=== PATIENT | female | born 1940 | race Caucasian/White ===

== ENCOUNTER 2017-03-07 20:31 | Inpatient (IN) ==
[2017-03-07] MEDS ORDERED: 0.9 % SODIUM CHLORIDE 1,000 ML IV ONE (20:35)
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
[2017-03-07 21:37] LABS: Basophils # (Auto) 0 K/mcL (0.0-0.3); Basophils % (Auto) 0 % (0.0-2.0); Eosinophils # (Auto) 0 K/mcL (0.0-0.7); Eosinophils % (Auto) 0.3 % (0.0-7.0); Granulocytes % (Auto) 84.5 % (38.0-78.0); Lymphocytes # (Auto) 0.8 K/mcL (1.5-4.8); Lymphocytes % (Auto) 5.5 % (15.5-49.0); Mean Cell Volume 91.8 fL (80.0-100.0); Mean Corpuscular HGB Conc 32.9 g/dL (31.0-36.0); Mean Corpuscular Hemoglobin 30.2 pg (26.0-34.0); Monocytes # (Auto) 1.3 K/mcL (0.1-0.9); Monocytes % (Auto) 9.7 % (1.0-12.0); Platelet Count 283 K/mcL (140-440); RBC 5.24 M/mcL (4.00-5.20); Red Cell Distribution Width 12.5 % (11.5-14.5)
[2017-03-07 22:04] LABS: ALT/SGPT 31 U/l (0-40); Albumin 4.5 gm/dL (3.2-5.2); Albumin/Globulin Ratio 1.3 (1.0-2.3); Alkaline Phosphatase 78 U/L (39-117); Blood Urea Nitrogen 23 mg/dl (8-23); Creatine Kinase 1137 IU/L (24-170)
[2017-03-08] MEDS ORDERED: 0.9 % SODIUM CHLORIDE 1,000 ML IV ONE ×3 (00:30→01:13)
[2017-03-08] MEDS ORDERED: ONDANSETRON 4 MG/2 ML VIAL IV PRN ×2 (00:49→16:00)
[2017-03-08] MEDS ORDERED: oxyCODONE HCL 5 MG TABLET PO PRN (00:49)
[2017-03-08] MEDS ORDERED: ACETAMINOPHEN 325 MG TABLET PO PRN (00:49)
[2017-03-08] MEDS ORDERED: ALBUTEROL SULFATE 2.5 MG/3 ML NEBULIZER NEB PRN (00:49)
[2017-03-08] MEDS: DEXTROSE 5%-1/2NS 1,000 ML IV SCH ×3 (00:50→18:01)
--- NOTE | 2017-03-08 01:25 | Internal Med History&Physical ---
Medical - H&P: HPI Patient information: Note initiated : 03/08/17 at 1:20 am Service Date, if different from initiated Date: [] Patient: Josefa Renee 76 y/o F admitted on 03/08/17 for fell down 3 days with right hip pain. Chief Complaint: [] History of present illness: Ms. Renee is a 76 year old Female who does not like to go to the doctor, presents to the ER today after being fallen down and being on the floor for 3 days. The patient notes 3 days ago she let her dog out, and when closing the door after letting him back in, she turned and then fell, she had a bunch of keys and she supposedly landed on that and the ground. She has had right hip pain since then and has not been able to get up, pain is moderate to severe, sharp, worse with activity, better with rest, more or less stable since incident. The patient son who had tried calling her eventually called the neighbour who then called 911 The patient denies any prodromal symptoms, no cp, sob, palpitations, dizziness, altered sensorium, altered smell, change in vision or headaches. She notes she had had multiple falls in the past 22 over last 5 yrs but has not had this checked out. She notes she has not lost conciousness or never felt dizzy during these spells. The patient son notes that sometimes when she tries to move her head too fast she may get dizzy. The patient does not follow up wit [facility] physician and does not take any medication except for her open angle glaucoma. The patient had a bad surgical outcome in 2002? with Dr Avila for her carpal tunnel, and since then has not seen any other physician except he eye doctor The patient was covered with feces and urine in the ER nad needed to be cleaned The patient notes that she tried to move around as much as possible when on the floor but was not able t oget much help The patient has multiple moles, and skin breakthrough. The patient in the left under breast side had signifciant skin breaktrough, thickened mass approx 8x6 cms which has been there for a while as per the patient. All systems: reviewed and no additional remarkable complaints except as stated ( as per HPI) Medical - H&P: PMH Medical history: glaucoma Surgical history: hystrectomy cholecystetomy appendectomy tonsillectomy Pertinent family history: aunt with breast cancer both parents with heart issues. Social history: isaac smoking denies etoh denies recreational drugs. Medical - H&P: Meds Home Medications Medication Instructions Recorded Confirmed Type No Known Home Meds [No Known Home 03/08/17 03/08/17 History Meds] Allergies Allergy/AdvReac Type Severity Reaction Status Date / Time No Known Drug Allergies Allergy Unverified 03/08/17 00:33 Medical - H&P: Exam - Constitutional Vitals: Temp Pulse Resp BP Pulse Ox 98.4 F 121 H 20 137/71 94 03/08/17 00:45 03/08/17 00:45 03/08/17 00:45 03/08/17 00:45 03/08/17 00:45 Exam: GENERAL: The patient is a well-developed, well-nourished in no apparent distress. Is alert and oriented x3. VITAL SIGNS: Reviewed and as noted elsewhere. HEENT: Head is normocephalic and atraumatic. Extraocular muscles are intact. Pupils are equal, round, and reactive to light. Nares appeared normal. Mouth appears any without lesions. Mucous membranes are dry NECK: Normal to inspection, Supple, No lymphadenopathy or thyromegaly. LUNGS: Air entry equal on both sides, no wheezing, crackles or rhonchi noted. No accessory muscles of respiration HEART: tachycardic rate, irregular rhythm , S1 and S2 heard, no Gallop, S3 or Rub Noted, No Gross murmur heard. ABDOMEN: Soft, nontender, and nondistended. Positive bowel sounds. No hepatosplenomegaly was noted. EXTREMITIES: No cyanosis, clubbing, rash, lesions or edema. NEUROLOGIC: Cranial nerves II through XII are grossly intact. Motor and Sensory System Grossly Intact PSYCHIATRIC: Normal affect, Normal Mood. Appropriate Behavior. SKIN: multiple moles, skin break through on the right hip, Left breat: under the breast there is a open mass 8x6 cms hard and indurated. Medical - H&P: Reslt - Labs CBC & Chem 7: 03/07/17 20:47 03/07/17 20:47 Labs: Short CBC 03/07/17 Range/Units 20:47 WBC 14.0 H (4.5-11.0) K/mcL Hgb 15.8 H (12.0-15.0) g/dL Hct 48.1 H (36.0-48.0) % Plt Count 283 (140-440) K/mcL BMP 03/07/17 20:47 Sodium 139 Potassium 3.5 Chloride 95 L Carbon Dioxide 23 BUN 23 Creatinine 0.9 Glucose 135 H Calcium 10.2 Cardiac Enzymes 03/07/17 Range/Units 20:47 Total Creatine Kinase 1137 H (24-170) IU/L Liver Function 03/07/17 Range/Units 20:47 Total Bilirubin 1.2 H (0.0-1.0) mg/dL AST 50 H (0-37) U/l ALT 31 (0-40) U/l Alkaline Phosphatase 78 (39-117) U/L Albumin 4.5 (3.2-5.2) gm/dL - EKG Data EKG comments: 03/08/17 01:30 ekg shows sinus tachycardia with multiple pac, Medical - H&P: A/P - Narrative A/P Narrative: A/P Right Hip Fracture: consult ortho in AM, pain management, NPO for now. Rhabdomyolysis: CK elevated, IV fluids for now, renal function ok, trend CK SIRS syndrome: low grade temp, tachycardia, elevated wbc, but no source, IV fluids, and await ua, give one dose of rocephin today. Left Breast Mass: going on for few years? will see if Dr Ramires Gen surgery can evaluate same and consider bx if needed Recurrent Fall: get CT head, DVT: hep sq DNR as per pt wishes, son in the room during this conversation.
[2017-03-08] MEDS ORDERED: cefTRIAXone 1 GM VIAL IV SCH (01:30)
[2017-03-08] MEDS ORDERED: cefTRIAXone 1 GM VIAL ONE (02:41)
[2017-03-08] MEDS: 0.9 % SODIUM CHLORIDE 10 ML SYRINGE IV SCH ×3 (05:48→22:07)
[2017-03-08] MEDS: HYDROmorphone 2 MG/ML SYRINGE IV PRN ×2 (05:51→11:20)
[2017-03-08] MEDS ORDERED: HYDROmorphone 2 MG/ML SYRINGE ONE (05:59)
--- NOTE | 2017-03-08 06:21 | XRay Report ---
CLINICAL INFORMATION: Trauma COMPARISON: None. FINDINGS: No fractures identified. Both SI and hip joints are normal in width alignment without arthritic change. Soft tissues are normal. Moderate L4-5 and L5-S1 degenerative disease noted IMPRESSION: No evidence of fracture. Moderate L4-5 L5-S1 degenerative disc disease. Interpreted and Authenticated by: Hernandez Benedict 03/08/17
--- NOTE | 2017-03-08 06:32 | XRay Report ---
CLINICAL INFORMATION: Trauma COMPARISON: None. FINDINGS: The heart is mildly enlarged. There is increased density in the superior mediastinum/lower neck with rightward deviation and narrowing of the trachea. This is likely due to multinodular adenoma (thyroid goiter). The lungs are clear. No effusions. IMPRESSION: No acute cardiopulmonary disease. Increased density in the left superior mediastinum/neck with rightward deviation and narrowing of the trachea. This most likely due to thyroid goiter. Suggest: Thyroid ultrasound. This may presently ( or eventually), cause obstructive airway symptoms Interpreted and Authenticated by: Hernandez Benedict 03/08/17
[2017-03-08 07:54] LABS: Basophils # (Auto) 0 K/mcL (0.0-0.3); Basophils % (Auto) 0.3 % (0.0-2.0); Eosinophils # (Auto) 0.1 K/mcL (0.0-0.7); Eosinophils % (Auto) 0.8 % (0.0-7.0); Granulocytes % (Auto) 73.3 % (38.0-78.0); Lymphocytes # (Auto) 1.4 K/mcL (1.5-4.8); Lymphocytes % (Auto) 13.6 % (15.5-49.0); Mean Cell Volume 90.7 fL (80.0-100.0); Mean Corpuscular HGB Conc 33.9 g/dL (31.0-36.0); Mean Corpuscular Hemoglobin 30.7 pg (26.0-34.0); Monocytes # (Auto) 1.2 K/mcL (0.1-0.9); Platelet Count 183 K/mcL (140-440); Red Cell Distribution Width 12.2 % (11.5-14.5)
[2017-03-08] MEDS: HEPARIN 5,000 UNIT/ML VIAL SQ SCH ×2 (07:58→19:31)
[2017-03-08 08:25] LABS: ALT/SGPT 26 U/l (0-40); Albumin 3.3 gm/dL (3.2-5.2); Albumin/Globulin Ratio 1.2 (1.0-2.3); Alkaline Phosphatase 55 U/L (39-117); Bilirubin,Direct < 0.2 mg/dL (0.0-0.3); Blood Urea Nitrogen 20 mg/dl (8-23); Creatine Kinase 772 IU/L (24-170); Gamma Glutamyl Transpeptidase 10 U/L (5-36); Magnesium 1.7 mg/dL (1.6-2.5); Uric Acid 5.1 mg/dL (2.5-8.0)
--- NOTE | 2017-03-08 09:12 | Consultation ---
DATE OF CONSULTATION: 03/08/2017 HISTORY OF PRESENT ILLNESS: The patient is an elderly female who fell 3 days ago. She has had right hip pain since then. She presented to the ER yesterday and a nondisplaced femoral neck fracture was noted on a CT scan done through the Emergency Room. She is admitted for definitive treatment. She was admitted by the hospitalist staff. PHYSICAL EXAMINATION: RIGHT HIP: Shows pain with log rolling of the right hip. She has no pain with log rolling of the left hip. She can dorsiflex and plantarflex her feet on both sides. There are no breaks in the skin on either side. I reviewed her studies which show a nondisplaced right femoral neck fracture. ASSESSMENT: The patient has the above-mentioned fracture on the right. PLAN: I have recommended percutaneous pins. The risks were discussed with her including the risk of needing this converted to a total hip and needing more surgery, medical complications, nonunion, infection of prominent hardware, etc. The postoperative course was reviewed and no guarantees were given. TJF:reid Job ID: [id number] Doc ID: [id number] Nic Oliveira MD
--- NOTE | 2017-03-08 09:19 | Cat Scan Report ---
CLINICAL INFORMATION: Trauma TECHNIQUE: 0.625 mm helical slices were obtained from the L3-4 level through the subtrochanteric region of the right hip. Following reconstruction, axial, coronal and sagittal reformatted images were processed and reviewed at bone and soft tissue windows. FINDINGS: A minimally displaced, minimally impacted acute subcapital fracture of the right hip is appreciated. In the anterior cortex of the subtrochanteric region, there is a 4.6 mm radiolucent region with a tiny sclerotic nidus and mild surrounding sclerosis which could potentially represent a small osteoid osteoma. The right hip is normal in width alignment without effusions. Carranza catheter in satisfactory position within the urinary bladder. No soft tissue abnormalities. The visualized bowel is normal. IMPRESSION: 1. Minimally impacted and minimally displaced acute subcapital fracture of the right hip. 2. Possible 4.6 mm osteoid osteoma - anterior cortex the subtrochanteric region of the proximal femur. Interpreted and Authenticated by: Hernandez Benedict 03/08/17
[2017-03-08] MEDS ORDERED: DEXAMETHASONE 10 MG/ML VIAL IV ONE (15:45)
[2017-03-08] MEDS ORDERED: LIDOCAINE HCL/PF 100 MG/5 ML SYRINGE IV ONE (15:45)
[2017-03-08] MEDS ORDERED: MIDAZOLAM 5 MG/5 ML VIAL IV ONE (15:45)
[2017-03-08] MEDS ORDERED: ONDANSETRON 4 MG/2 ML VIAL IV ONE (15:45)
[2017-03-08] MEDS ORDERED: PROPOFOL 200 MG/20 ML VIAL IV ONE (15:45)
[2017-03-08] MEDS ORDERED: fentaNYL 100 MCG/2 ML VIAL IV ONE (15:45)
[2017-03-08] MEDS ORDERED: PROMETHAZINE 25 MG/ML VIAL IV PRN (16:00)
[2017-03-08] MEDS ORDERED: ACETAMINOPHEN 1,000 MG/100 ML BOTTLE IV ONE (16:00)
[2017-03-08] MEDS ORDERED: FLUMAZENIL 0.1 MG/ML ML IV PRN (16:00)
[2017-03-08] MEDS ORDERED: NALOXONE HCL 0.4 MG/ML VIAL IV PRN (16:00)
[2017-03-08] MEDS ORDERED: fentaNYL 100 MCG/2 ML VIAL IV PRN (16:00)
[2017-03-08] MEDS ORDERED: LACTATED RINGERS 1,000 ML IV SCH (16:00)
[2017-03-08] MEDS ORDERED: diphenhydrAMINE 50 MG/ML VIAL IV PRN (16:00)
[2017-03-08] MEDS ORDERED: MEPERIDINE 25 MG/ML SYRINGE IV PRN (16:00)
[2017-03-08] MEDS ORDERED: BENZOCAINE/MENTHOL 1 LOZENGE PO PRN ×2 (16:00→16:29)
[2017-03-08] MEDS ORDERED: IPRATROPIUM/ALBUTEROL 3 ML AMPUL.NEB NEB PRN (16:00)
[2017-03-08] MEDS ORDERED: LACTATED RINGERS 250 ML IV PRN (16:00)
--- NOTE | 2017-03-08 16:27 | Brief Operative Note ---
Date of procedure: 03/08/17 Pre-op diagnosis: R hip fracture Post-op diagnosis: same Procedure: ORIF Grafts/Implants: Yes Anesthesia: LEONARDA Surgeon: Jesse Albrecht Rehab Therapist: Fabio Posada Estimated blood loss (cc): 20 Condition: stable Disposition: floor
[2017-03-08] MEDS ORDERED: FLEETS ADULT ENEMA PR PRN (16:29)
[2017-03-08] MEDS ORDERED: ONDANSETRON ODT 4 MG TABLET SL PRN (16:29)
[2017-03-08] MEDS ORDERED: MAGNESIUM HYDROXIDE 30 ML ORAL.SUSP PO PRN (16:29)
[2017-03-08] MEDS ORDERED: POLYETHYLENE GLYCOL 3350 17 GM PACKET PO PRN (16:29)
[2017-03-08] MEDS ORDERED: BISACODYL 10 MG SUPP.RECT PR PRN (16:29)
[2017-03-08] MEDS: ceFAZolin 1 GM VIAL IV SCH (17:56)
[2017-03-08] MEDS: cefTRIAXone 1 GM VIAL IV SCH (18:01)
[2017-03-08] MEDS: HYDROCODONE/APAP 7.5/325MG TABLET PO PRN (19:31)
[2017-03-08] MEDS: DOCUSATE SODIUM 100 MG CAPSULE PO SCH (19:31)
[2017-03-08] MEDS: SENNOSIDES 1 TABLET PO SCH (19:31)
[2017-03-08] MEDS: DORZOLAMIDE 2% OPHTH DROPS 10ML BOTTLE OU SCH (19:34)
--- NOTE | 2017-03-08 20:15 | Internal Med Progress Note ---
Medical - PN: Subj Patient information: Note initiated : 03/08/17 at 8:10 pm Service Date, if different from initiated Date: [] Patient: Josefa Renee 76 y/o F admitted on 03/08/17 for fell down 3 days with right hip pain. Chief Complaint: [] Interval history: Ms. Renee is a 76 year old Female who does not like to go to the doctor, presents to the ER today after being fallen down and being on the floor for 3 days. The patient notes 3 days ago she let her dog out, and when closing the door after letting him back in, she turned and then fell, she had a bunch of keys and she supposedly landed on that and the ground. She has had right hip pain since then and has not been able to get up, pain is moderate to severe, sharp, worse with activity, better with rest, more or less stable since incident. The patient son who had tried calling her eventually called the neighbour who then called 911 The patient denies any prodromal symptoms, no cp, sob, palpitations, dizziness, altered sensorium, altered smell, change in vision or headaches. She notes she had had multiple falls in the past 22 over last 5 yrs but has not had this checked out. She notes she has not lost conciousness or never felt dizzy during these spells. The patient son notes that sometimes when she tries to move her head too fast she may get dizzy. The patient does not follow up wit [facility] physician and does not take any medication except for her open angle glaucoma. The patient had a bad surgical outcome in 2002? with Dr Avila for her carpal tunnel, and since then has not seen any other physician except he eye doctor The patient was covered with feces and urine in the ER nad needed to be cleaned The patient notes that she tried to move around as much as possible when on the floor but was not able t oget much help The patient has multiple moles, and skin breakthrough. The patient in the left under breast side had signifciant skin breaktrough, thickened mass approx 8x6 cms which has been there for a while as per the patient. Mar 08 patient seen examined, Dr Albrecht performed sx this afternoon, the patient labs look bet ter, she has sorness in the legs but no other complaints Dr Ramires looked at the breast mass and this looks highly suspicious for breast cancer, appears fairly advanced She would need surgery for same Dr Resendez will be here in AM. Patient otherwise has no other concerns. Pertinent ROS: Denies headache, dizziness Denies chest pain, palpitations Denies cough or shortness of breath Denies abdominal pain, nausea or vomiting. - Constitutional Vitals: Vital Signs Temp Pulse Resp BP Pulse Ox 98.1 F 97 H 93 H 161/82 98 03/08/17 16:28 03/08/17 16:57 03/08/17 16:57 03/08/17 16:57 03/08/17 16:57 Period Temp Pulse Resp BP Sys/Weinstein Pulse Ox Last 24 Hr 97.8 F-99.8 F 58-121 12-93 101-161/50-99 92-100 Intake and Output 03/08/17 03/08/17 03/08/17 05:59 13:59 21:59 Intake Total 2583 / 2583 1000 / 1000 1785 / 1785 Output Total 325 / 325 350 / 350 Balance 2258 / 2258 1000 / 1000 1435 / 1435 Weight 149 lb 8 oz Intake & Output: Intake & Output 03/08/17 03/08/17 03/08/17 05:59 13:59 21:59 Intake Total 2583 / 2583 1000 / 1000 1785 / 1785 Output Total 325 / 325 350 / 350 Balance 2258 / 2258 1000 / 1000 1435 / 1435 Weight 149 lb 8 oz Intake: IV 2583 / 2583 1000 / 1000 1785 / 1785 Sodium Chloride 0.9% 1,000 ml @ 1583 / 1583 Wide Open IV [facility] Rx#: [id number] Dextrose 5%-1/2Ns IV Solution 1 1000 / 1000 685 / 685 ,000 ml @ 100 mls/hr IV .Q10H [facility] Rx#:[id number] Lactated Ringers 1,000 ml @ 20 1000 / 1000 mls/hr IV .Q24H [facility] Rx#: [id number] Oral 0 / 0 Output: Urine Catheter Amount 325 / 325 300 / 300 Estimated Blood Loss 50 / 50 Exam: Constitutional; Afebrile, cooperative, alert, not in distress. Eyes- No icterus, , No periorbital swelling Ears- Ext ear normal, hearing normal to conversation. Neck- Midline trachea, supple Respiratory system: Air Entry equal on both sides, No crackles or wheezing, no rhonchi. CVS- Rate rhythm regular, S1,S2 heard, no gallop, no rub. 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 Medical - PN: Obj Da - Labs CBC & Chem 7: 03/08/17 04:15 03/08/17 04:15 Labs: Abnormal Lab Results 03/08/17 03/08/17 03/07/17 04:15 04:15 20:47 WBC RBC Hgb Hct Gran % Lymph % (Auto) 13.6 L Gran # Lymph # (Auto) 1.4 L [place] # (Auto) 1.2 H Chloride Carbon Dioxide 20 L Anion Gap 17.0 H Glucose 111 H POC Glucose 138 H Calcium 8.5 L Phosphorus 2.2 L Total Bilirubin AST 46 H Lactate Dehydrogenase 360 H Total Creatine Kinase 772 H 1137 H 03/07/17 03/07/17 20:47 20:47 WBC 14.0 H RBC 5.24 H Hgb 15.8 H Hct 48.1 H Gran % 84.5 H Lymph % (Auto) 5.5 L Gran # 11.8 H Lymph # (Auto) 0.8 L [place] # (Auto) 1.3 H Chloride 95 L Carbon Dioxide Anion Gap 21.0 H Glucose 135 H POC Glucose Calcium Phosphorus Total Bilirubin 1.2 H AST 50 H Lactate Dehydrogenase Total Creatine Kinase Meds: Medications Acetaminophen (Tylenol) 650 mg PO Q6HP PRN PRN Reason: PAIN/FEVER > 101 Hydrocodone Bitart/Acetaminophen ([place] 7.5/325mg) 0 tab PO Q4HP PRN PRN Reason: PAIN LEVEL 3-6 Last Admin: 03/08/17 19:31 Dose: 2 tab Albuterol Sulfate (Ventolin) 2.5 mg NEB Q2HP PRN PRN Reason: Shortness Of Breath Bisacodyl (Dulcolax) 10 mg [place] Q2-3DAYS PRN PRN Reason: Constipation Cefazolin Sodium (Ancef) 1 gm IV Q8H [facility] Stop: 03/09/17 00:31 Last Admin: 03/08/17 17:56 Dose: 1 gm Ceftriaxone Sodium (Rocephin) 1 gm IV DAILY [facility] Last Admin: 03/08/17 18:01 Dose: 1 gm Docusate Sodium (Colace) 100 mg PO BID [facility] Last Admin: 03/08/17 19:31 Dose: 100 mg Dorzolamide HCl (Trusopt 2% Ophth Drops) 1 gtt OU BID [facility] Last Admin: 03/08/17 19:34 Dose: 1 gtt Heparin Sodium (Porcine) (Heparin) 5,000 unit SQ Q12 [facility] Last Admin: 03/08/17 19:31 Dose: 5,000 unit Hydromorphone HCl (Dilaudid) 0.5 mg IV Q2HP PRN PRN Reason: PAIN LEVEL > 6 Last Admin: 03/08/17 11:20 Dose: 0.5 mg Dextrose/Sodium Chloride (Dextrose 5%-1/2ns Iv Solution) 1,000 mls @ 100 mls/ hr IV .Q10H [facility] Last Admin: 03/08/17 18:01 Dose: 100 mls/hr Magnesium Hydroxide (Milk Of Magnesia) 30 ml PO BIDP PRN PRN Reason: Constipation Methocarbamol (Robaxin) 750 mg PO Q6HP PRN PRN Reason: Muscle Spasm Ondansetron HCl (Zofran) 4 mg IV Q6HP PRN PRN Reason: Nausea And Vomiting Ondansetron HCl (Zofran Odt) 4 mg SL Q4HP PRN PRN Reason: Nausea And Vomiting Polyethylene Glycol (Miralax) 17 gm PO DAILYP PRN PRN Reason: Constipation Senna (Senokot) 2 tab PO HS [facility] Last Admin: 03/08/17 19:31 Dose: 2 tab Sodium Biphosphate/Sodium Phosphate (Fleets Adult) 1 dose WA Q3-4DAYS PRN PRN Reason: Constipation Sodium Chloride (Saline Flush) 10 ml IV Q8 [facility] Last Admin: 03/08/17 15:28 Dose: Not Given Throat Lozenges (Cepacol) 1 lozenge PO PRN PRN PRN Reason: Sore Throat Medical - PN: A/P - Time Spent With Patient Total time spent is greater than 50% in coordination of care (as documented) at patient's floor/unit and/or counseling patient: - Narrative A/P Narrative: A/P Right Hip Fracture: s/p surgery by ortho. management as per them Rhabdomyolysis: CK improved, continue IVF for now. SIRS syndrome: no e/o infection wbc normal, hold off on antibiotics. ua not reported yet, send sample again. Left Breast Mass: going on for few years? seen b y Dr Ramires, Dr Resendez will follow, likely locally advanced breast cancer. Recurrent Fall: await CT head, consider MRI head if any suspicion for mets DVT: hep sq DNR as per pt wishes, son in the room during this conversation. Plan of care reviewed with pt and her son. Medical - PN: Qual - VTE Deep Vein Thrombosis/Pulmonary Embolism Present on Admission: No
[2017-03-09 00:37] LABS: Appearance,Urine CLEAR; Bacteria,Urine 0 /hpf (0); Bilirubin,Urine NEG (NEG); Color,Urine STRAW; Glucose,Urine (UA) NEGATIVE (NEG); Leukocyte Esterase,Urine NEG /uL (NEG); Mucus,Urine FEW /hpf (0); Nitrate,Urine NEG (NEG); Protein,Urine NEG (NEG); Specific Gravity,Urine 1.008 (1.000-1.035); Urine Blood NEG mg/dL (<0.03); Urine RBC < 1 /hpf (0-1); Urine Squamous Epithelial Cell < 1 /hpf (0-4); Urine Transitional Epi Cells < 1 /hpf (0-2); Urine WBC 1 /hpf (0-4); Urobilinogen,Urine NEG (NEG)
[2017-03-09] MEDS: ceFAZolin 1 GM VIAL IV SCH (00:40)
[2017-03-09] MEDS: HYDROCODONE/APAP 7.5/325MG TABLET PO PRN ×3 (05:11→20:19)
[2017-03-09] MEDS: DEXTROSE 5%-1/2NS 1,000 ML IV SCH ×2 (05:11→14:22)
[2017-03-09] MEDS: 0.9 % SODIUM CHLORIDE 10 ML SYRINGE IV SCH ×5 (05:11→18:43)
[2017-03-09 05:42] LABS: Basophils # (Auto) 0 K/mcL (0.0-0.3); Basophils % (Auto) 0 % (0.0-2.0); Eosinophils # (Auto) 0 K/mcL (0.0-0.7); Eosinophils % (Auto) 0.2 % (0.0-7.0); Granulocytes % (Auto) 88.1 % (38.0-78.0); Lymphocytes # (Auto) 0.4 K/mcL (1.5-4.8); Lymphocytes % (Auto) 6.2 % (15.5-49.0); Mean Cell Volume 92.6 fL (80.0-100.0); Mean Corpuscular HGB Conc 33.2 g/dL (31.0-36.0); Mean Corpuscular Hemoglobin 30.8 pg (26.0-34.0); Monocytes # (Auto) 0.3 K/mcL (0.1-0.9); Monocytes % (Auto) 5.5 % (1.0-12.0); Platelet Count 207 K/mcL (140-440); RBC 4.05 M/mcL (4.00-5.20); Red Cell Distribution Width 12.9 % (11.5-14.5)
[2017-03-09 05:59] LABS: ALT/SGPT 24 U/l (0-40); Albumin 3.5 gm/dL (3.2-5.2); Albumin/Globulin Ratio 1.4 (1.0-2.3); Alkaline Phosphatase 55 U/L (39-117); Bilirubin,Direct < 0.2 mg/dL (0.0-0.3); Blood Urea Nitrogen 13 mg/dl (8-23); Gamma Glutamyl Transpeptidase 11 U/L (5-36); Magnesium 1.9 mg/dL (1.6-2.5); Uric Acid 4.6 mg/dL (2.5-8.0)
--- NOTE | 2017-03-09 07:44 | XRay Report ---
CLINICAL INFORMATION: Subcapital fracture - COMPARISON: None. FINDINGS: Three digital images from the OR show reduction a subcapital fracture and is now anatomic alignment. Final images show three pins transfixing the fracture.] Hip is unremarkable IMPRESSION: ORIF subcapital fracture - alignment is anatomic Interpreted and Authenticated by: Hernandez Benedict 03/09/17
--- NOTE | 2017-03-09 07:53 | Orthopedic Progress Note ---
Orthopedics - Auxillary Note - Subjective Patient Information: Note initiated : 03/09/17 at 7:52 am Service Date, if different from initiated Date: [] Patient: Josefa Renee 76 y/o F admitted on 03/08/17 for fell down 3 days with right hip pain. Chief Complaint: mild pain bandages c/d/i nvi-distal Vital Signs Temp Pulse Resp BP Pulse Ox 03/09/17 04:00 97.6 F 100 H 18 172/82 93 03/09/17 00:00 97.7 F 84 12 112/70 97 03/08/17 20:12 98.0 F 108 H 16 110/53 97 03/08/17 20:00 95 03/08/17 19:12 120 H 135/74 97 03/08/17 18:41 93 H 122/72 97 03/08/17 18:12 93 H 126/67 96 03/08/17 17:56 91 H 135/77 96 03/08/17 17:41 93 H 139/83 93 03/08/17 17:27 96 H 156/65 96 03/08/17 16:57 97 H 93 H 161/82 98 03/08/17 16:51 94 H 19 160/69 98 03/08/17 16:46 100 H 19 159/82 100 03/08/17 16:41 98 H 20 157/88 98 03/08/17 16:33 90 20 109/50 97 03/08/17 16:28 98.1 F 86 13 105/56 97 03/08/17 12:00 98 F 100 H 18 101/51 92 Intake and Output 03/08/17 03/09/17 03/09/17 21:59 05:59 13:59 Intake Total 2024 / 2024 923 / 923 0 / 0 Output Total 350 / 350 1350 / 1350 Balance 1675 / 1675 -427 / -427 0 / 0 Intake: IV 1785 / 1785 723 / 723 0 / 0 Dextrose 5%-1/2Ns IV Solution 1 685 / 685 723 / 723 ,000 ml @ 100 mls/hr IV .Q10H [facility] Rx#:[id number] Lactated Ringers 1,000 ml @ 20 1000 / 1000 mls/hr IV .Q24H [facility] Rx#: [id number] Oral 240 / 240 200 / 200 Output: Urine Catheter Amount 300 / 300 1350 / 1350 Estimated Blood Loss 50 / 50 Other: Meal Dinner Nourishment/Supplement Percent of Meal Consumed 25% 100% Feeding Ability Independent Independent Weight 156 lb 8 oz Laboratory Results - last 24 hr 03/08/17 03/08/17 03/08/17 04:15 04:15 23:35 WBC 10.3 RBC 4.30 Hgb 13.2 Hct 38.9 MCV 90.7 MCH 30.7 MCHC 33.9 RDW 12.2 Plt Count 183 MPV 10.4 Gran % 73.3 Lymph % (Auto) 13.6 L [place] % (Auto) 12.0 Eos % (Auto) 0.8 Baso % (Auto) 0.3 Gran # 7.5 Lymph # (Auto) 1.4 L [place] # (Auto) 1.2 H Eos # (Auto) 0.1 Baso # (Auto) 0 PT INR Sodium 140 Potassium 3.4 Chloride 103 Carbon Dioxide 20 L Anion Gap 17.0 H BUN 20 Creatinine 0.7 GFR Calculation 83 Glucose 111 H Uric Acid 5.1 Calcium 8.5 L Phosphorus 2.2 L Magnesium 1.7 Total Bilirubin 0.6 Direct Bilirubin < 0.2 GGT 10 AST 46 H ALT 26 Alkaline Phosphatase 55 Lactate Dehydrogenase 360 H Total Creatine Kinase 772 H Total Protein 6.1 Albumin 3.3 Globulin 2.8 Albumin/Globulin Ratio 1.2 Triglycerides 69 Urine Color Straw Urine Appearance Clear Urine pH 6.0 Ur Specific [place] 1.008 Urine Protein Neg Urine Glucose (UA) Negative Urine Ketones Neg Urine Occult Blood Neg Urine Nitrate Neg Urine Bilirubin Neg Urine Urobilinogen Neg Ur Leukocyte Esterase Neg Urine RBC < 1 Urine WBC 1 Ur Squamous Epith Cells < 1 Ur Transition Epith Cell < 1 Urine Bacteria 0 Urine Mucus Few Ur Culture Indicated? No 03/09/17 03/09/17 03/09/17 04:12 04:12 04:12 WBC 6.1 RBC 4.05 Hgb 12.5 Hct 37.5 MCV 92.6 MCH 30.8 MCHC 33.2 RDW 12.9 Plt Count 207 MPV 9.0 Gran % 88.1 H Lymph % (Auto) 6.2 L [place] % (Auto) 5.5 Eos % (Auto) 0.2 Baso % (Auto) 0 Gran # 5.4 Lymph # (Auto) 0.4 L [place] # (Auto) 0.3 Eos # (Auto) 0 Baso # (Auto) 0 PT INR Sodium 141 Potassium 3.8 Chloride 104 Carbon Dioxide 23 Anion Gap 14.0 BUN 13 Creatinine 0.6 GFR Calculation 87 Glucose 176 H Uric Acid 4.6 Calcium 8.6 Phosphorus 2.4 L Magnesium 1.9 Total Bilirubin 0.2 Direct Bilirubin < 0.2 GGT 11 AST 30 ALT 24 Alkaline Phosphatase 55 Lactate Dehydrogenase 211 Total Creatine Kinase 270 H Total Protein 6.0 Albumin 3.5 Globulin 2.5 Albumin/Globulin Ratio 1.4 Triglycerides 74 Urine Color Urine Appearance Urine pH Ur Specific [place] Urine Protein Urine Glucose (UA) Urine Ketones Urine Occult Blood Urine Nitrate Urine Bilirubin Urine Urobilinogen Ur Leukocyte Esterase Urine RBC Urine WBC Ur Squamous Epith Cells Ur Transition Epith Cell Urine Bacteria Urine Mucus Ur Culture Indicated? 03/09/17 04:12 WBC RBC Hgb Hct MCV MCH MCHC RDW Plt Count MPV Gran % Lymph % (Auto) Mineral % (Auto) Eos % (Auto) Baso % (Auto) Gran # Lymph # (Auto) [place] # (Auto) Eos # (Auto) Baso # (Auto) PT 14.0 INR 1.1 Sodium Potassium Chloride Carbon Dioxide Anion Gap BUN Creatinine GFR Calculation Glucose Uric Acid Calcium Phosphorus Magnesium Total Bilirubin Direct Bilirubin GGT AST ALT Alkaline Phosphatase Lactate Dehydrogenase Total Creatine Kinase Total Protein Albumin Globulin Albumin/Globulin Ratio Triglycerides Urine Color Urine Appearance Urine pH Ur Specific [place] Urine Protein Urine Glucose (UA) Urine Ketones Urine Occult Blood Urine Nitrate Urine Bilirubin Urine Urobilinogen Ur Leukocyte Esterase Urine RBC Urine WBC Ur Squamous Epith Cells Ur Transition Epith Cell Urine Bacteria Urine Mucus Ur Culture Indicated? s/p R hip pinning for femoral neck fx-stable mobilize with PT cont medical management per hospitalist
[2017-03-09] MEDS: DOCUSATE SODIUM 100 MG CAPSULE PO SCH ×2 (09:51→20:20)
[2017-03-09] MEDS: cefTRIAXone 1 GM VIAL IV SCH (09:52)
[2017-03-09] MEDS: HEPARIN 5,000 UNIT/ML VIAL SQ SCH ×2 (09:52→20:20)
[2017-03-09] MEDS: DORZOLAMIDE 2% OPHTH DROPS 10ML BOTTLE OU SCH ×2 (09:57→20:27)
--- NOTE | 2017-03-09 14:32 | Internal Med Progress Note ---
Medical - PN: Subj Patient information: Note initiated : 03/09/17 at 2:28 pm Service Date, if different from initiated Date: [] Patient: Josefa Renee 76 y/o F admitted on 03/08/17 for Rhabdomyolysis, Right Hip Fracture. Chief Complaint: [] Interval history: Ms. Renee is a 76 year old Female who does not like to go to the doctor, presents to the ER today after being fallen down and being on the floor for 3 days. The patient notes 3 days ago she let her dog out, and when closing the door after letting him back in, she turned and then fell, she had a bunch of keys and she supposedly landed on that and the ground. She has had right hip pain since then and has not been able to get up, pain is moderate to severe, sharp, worse with activity, better with rest, more or less stable since incident. The patient son who had tried calling her eventually called the neighbour who then called 911 The patient denies any prodromal symptoms, no cp, sob, palpitations, dizziness, altered sensorium, altered smell, change in vision or headaches. She notes she had had multiple falls in the past 22 over last 5 yrs but has not had this checked out. She notes she has not lost conciousness or never felt dizzy during these spells. The patient son notes that sometimes when she tries to move her head too fast she may get dizzy. The patient does not follow up wit [facility] physician and does not take any medication except for her open angle glaucoma. The patient had a bad surgical outcome in 2002? with Dr Avila for her carpal tunnel, and since then has not seen any other physician except he eye doctor The patient was covered with feces and urine in the ER nad needed to be cleaned The patient notes that she tried to move around as much as possible when on the floor but was not able t oget much help The patient has multiple moles, and skin breakthrough. The patient in the left under breast side had signifciant skin breaktrough, thickened mass approx 8x6 cms which has been there for a while as per the patient. Mar 08 patient seen examined, Dr Albrecht performed sx this afternoon, the patient labs look bet ter, she has sorness in the legs but no other complaints Dr Ramires looked at the breast mass and this looks highly suspicious for breast cancer, appears fairly advanced She would need surgery for same Dr Resendez will be here in AM. Patient otherwise has no other concerns. Mar 09 patient seen examined no acute concerns, left leg unable to use due to pain, CT pelvis was neg for left hip fracture s/p surgery, doing well as per ortho Left breast mass present, Dr Resendez to evaluate patient and decide on the care plan OT/PT to continue with therapy CT head done result pending. Pertinent ROS: Denies headache, dizziness Denies chest pain, palpitations Denies cough or shortness of breath Denies abdominal pain, nausea or vomiting. - Constitutional Vitals: Vital Signs Temp Pulse Resp BP Pulse Ox 97.6 F 103 H 18 127/73 98 03/09/17 12:00 03/09/17 07:54 03/09/17 12:00 03/09/17 12:00 03/09/17 12:00 Period Temp Pulse Resp BP Sys/Weinstein Pulse Ox Last 24 Hr 97.6 F-98.1 F 84-120 12-93 105-172/50-88 93-100 Intake and Output 03/09/17 03/09/17 03/09/17 05:59 13:59 21:59 Intake Total 923 / 923 612 / 612 180 / 180 Output Total 1350 / 1350 900 / 900 Balance -427 / -427 -288 / -288 180 / 180 Weight 156 lb 8 oz Patient Weight 03/10/17 05:59 Weight 156 lb 8 oz Intake & Output: Intake & Output 03/09/17 03/09/17 03/09/17 05:59 13:59 21:59 Intake Total 923 / 923 612 / 612 180 / 180 Output Total 1350 / 1350 900 / 900 Balance -427 / -427 -288 / -288 180 / 180 Weight 156 lb 8 oz Intake: IV 723 / 723 432 / 432 Dextrose 5%-1/2Ns IV Solution 1 723 / 723 ,000 ml @ 100 mls/hr IV .Q10H [facility] Rx#:[id number] Oral 200 / 200 180 / 180 180 / 180 Output: Urine Catheter Amount 1350 / 1350 900 / 900 Other: Meal Nourishment/Supplement Breakfast Lunch Percent of Meal Consumed 100% 50% 75% Feeding Ability Independent Independent Independent Exam: Constitutional; Afebrile, cooperative, alert, not in distress. Eyes- No icterus, , No periorbital swelling Ears- Ext ear normal, hearing normal to conversation. Neck- Midline trachea, supple Respiratory system: Air Entry equal on both sides, No crackles or wheezing, no rhonchi. CVS- Rate rhythm regular, S1,S2 heard, no gallop, no rub. 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 Left leg, unable to move due to pain, no sensory issues. Medical - PN: Obj Da - Labs CBC & Chem 7: 03/09/17 04:12 03/09/17 04:12 Labs: Abnormal Lab Results 03/09/17 03/09/17 03/09/17 04:12 04:12 04:12 WBC RBC Hgb Hct Gran % 88.1 H Lymph % (Auto) 6.2 L Gran # Lymph # (Auto) 0.4 L [place] # (Auto) Chloride Carbon Dioxide Anion Gap Glucose 176 H POC Glucose Calcium Phosphorus 2.4 L Total Bilirubin AST Lactate Dehydrogenase Total Creatine Kinase 270 H 03/08/17 03/08/17 03/07/17 04:15 04:15 20:47 WBC RBC Hgb Hct Gran % Lymph % (Auto) 13.6 L Gran # Lymph # (Auto) 1.4 L [place] # (Auto) 1.2 H Chloride Carbon Dioxide 20 L Anion Gap 17.0 H Glucose 111 H POC Glucose 138 H Calcium 8.5 L Phosphorus 2.2 L Total Bilirubin AST 46 H Lactate Dehydrogenase 360 H Total Creatine Kinase 772 H 1137 H 03/07/17 03/07/17 20:47 20:47 WBC 14.0 H RBC 5.24 H Hgb 15.8 H Hct 48.1 H Gran % 84.5 H Lymph % (Auto) 5.5 L Gran # 11.8 H Lymph # (Auto) 0.8 L [place] # (Auto) 1.3 H Chloride 95 L Carbon Dioxide Anion Gap 21.0 H Glucose 135 H POC Glucose Calcium Phosphorus Total Bilirubin 1.2 H AST 50 H Lactate Dehydrogenase Total Creatine Kinase Meds: Medications Acetaminophen (Tylenol) 650 mg PO Q6HP PRN PRN Reason: PAIN/FEVER > 101 Hydrocodone Bitart/Acetaminophen ([place] 7.5/325mg) 0 tab PO Q4HP PRN PRN Reason: PAIN LEVEL 3-6 Last Admin: 03/09/17 11:21 Dose: 2 tab Albuterol Sulfate (Ventolin) 2.5 mg NEB Q2HP PRN PRN Reason: Shortness Of Breath Bisacodyl (Dulcolax) 10 mg [place] Q2-3DAYS PRN PRN Reason: Constipation Ceftazidime (Fortaz) 2 gm IV Q8H [facility] Last Admin: 03/09/17 11:00 Dose: 2 gm Docusate Sodium (Colace) 100 mg PO BID [facility] Last Admin: 03/09/17 09:51 Dose: 100 mg Dorzolamide HCl (Trusopt 2% Ophth Drops) 1 gtt OU BID [facility] Last Admin: 03/09/17 09:57 Dose: 1 gtt Heparin Sodium (Porcine) (Heparin) 5,000 unit SQ Q12 [facility] Last Admin: 03/09/17 09:52 Dose: 5,000 unit Hydromorphone HCl (Dilaudid) 0.5 mg IV Q2HP PRN PRN Reason: PAIN LEVEL > 6 Last Admin: 03/08/17 11:20 Dose: 0.5 mg Magnesium Hydroxide (Milk Of Magnesia) 30 ml PO BIDP PRN PRN Reason: Constipation Methocarbamol (Robaxin) 750 mg PO Q6HP PRN PRN Reason: Muscle Spasm Ondansetron HCl (Zofran) 4 mg IV Q6HP PRN PRN Reason: Nausea And Vomiting Ondansetron HCl (Zofran Odt) 4 mg SL Q4HP PRN PRN Reason: Nausea And Vomiting Polyethylene Glycol (Miralax) 17 gm PO DAILYP PRN PRN Reason: Constipation Senna (Senokot) 2 tab PO HS [facility] Last Admin: 03/08/17 19:31 Dose: 2 tab Sodium Biphosphate/Sodium Phosphate (Fleets Adult) 1 dose IA Q3-4DAYS PRN PRN Reason: Constipation Sodium Chloride (Saline Flush) 10 ml IV Q8 [facility] Last Admin: 03/09/17 11:01 Dose: 10 ml Throat Lozenges (Cepacol) 1 lozenge PO PRN PRN PRN Reason: Sore Throat Medical - PN: A/P - Time Spent With Patient Total time spent is greater than 50% in coordination of care (as documented) at patient's floor/unit and/or counseling patient: - Narrative A/P Narrative: A/P Right Hip Fracture: s/p surgery by ortho. management as per them Rhabdomyolysis: CK improved, d/c IVF, tolerating orals well. SIRS syndrome: left breast site potentially infected, start on ceftazidine, wound cx is karely neg, await final sensitivities. Left Breast Mass: going on for few years? seen b y Dr Ramires, Dr Resendez will follow, likely locally advanced breast cancer. Recurrent Fall: await CT head, consider MRI head if any suspicion for mets DVT: hep sq DNR as per pt wishes, son in the room during this conversation. Plan of care reviewed with pt and her son. Medical - PN: Qual - VTE Deep Vein Thrombosis/Pulmonary Embolism Present on Admission: No
--- NOTE | 2017-03-09 14:39 | Consultation ---
DATE OF CONSULTATION: 03/09/2017 CHIEF COMPLAINT: The patient was seen in consultation for a right breast mass. HISTORY OF PRESENT ILLNESS: This is a 76-year-old woman who was admitted to the hospital after suffering a right hip injury. She has a right hip fracture which is being managed by orthopedic surgery. She was admitted on 03/08/2017 and taken to the operating room on the day of admission for ORIF of the right hip fracture. During her initial evaluation on presentation to the hospital, patient was noted to have an area of induration with overlying ulcer on the right breast. General surgery consultation is requested for this finding. The patient reports that she does not go to the doctor regularly. The lump in the inferior right breast has been present for approximately 4 years and gradually increasing in size with developing ulceration. She denies pain in the area. The area does have some discharge from where there is ulceration. The patient denies any personal history of cancer. She reports a family history of breast cancer in an aunt, though she does not recall the age of diagnosis of that. She denies any known family history of colon or ovarian cancer. The patient reports two prior pregnancies. She previously underwent a hysterectomy and oophorectomy (by patient report) in the 1970s. PAST MEDICAL HISTORY: The patient reports prior bilateral carpal tunnel release with residual numbness of the hands, prior abdominal hysterectomy and bilateral oophorectomy (patient report), cholecystectomy, appendectomy, tonsillectomy. The patient denies any history of diabetes or coronary artery disease. SOCIAL HISTORY: Denies tobacco and ethanol use. Denies recreational drug use. MEDICATIONS: Patient reports no home medications. ALLERGIES: No known drug allergies. PHYSICAL EXAMINATION: VITAL SIGNS: Temperature 97.6, pulse 103, respirations 12, blood pressure 127/73. O2 saturation is 98% on 2 liters nasal cannula. GENERAL: Patient is a well-developed, well-nourished elderly woman who appears her stated age in no acute distress. HEENT: Head is normocephalic. Sclerae are white. Mucous membranes are moist. NECK: Supple. No palpable cervical or supraclavicular adenopathy. CHEST: Breath sounds are clear bilaterally. No rales or wheezes are heard. CARDIOVASCULAR: Regular rhythm with a tachycardic rate. BREASTS: On visual inspection, there is a large lesion on the inferior medial aspect of the right breast with ulcerations centrally. Skin around the lesion has changes consistent with seborrheic keratosis of which the patient has multiple of these on her skin over her body. Palpation of the right breast reveals distinctly firm area in the inferior medial aspect of the breast, just along the inframammary crease underlying the area of the skin lesion that has ulceration. It is uncertain if this area is a fullness extending from the skin or is primary to breast but seems more likely breast and feels fixed to underlying muscle. There is also another area of fullness in the breast in about the 3o'clock position. The remainder of the right breast is without skin changes. No nipple discharge or changes of the nipple skin. Palpation of the right axilla reveals adenopathy which is not tender to palpation. Palpation of the left breast reveals no distinct masses or nodules within the breast tissue. No changes of the left nipple skin. No nipple discharge and no axillary adenopathy palpated. ABDOMEN: Obese, soft, nontender to palpation. No masses or organomegaly noted on palpation of the abdomen. EXTREMITIES: There is a clean dressing on the right hip, site of recent surgery. Extremities have mild trace edema with DP pulses palpable bilaterally. SKIN: Multiple large seborrheic keratoses scattered all over the patient's extremities and torso. Rather large lesions are noted on the lateral aspects of the abdomen, both on the right and left sides. LABS AND STUDIES: CBC from today shows a white count of 6.1, hemoglobin 12.5, hematocrit 37.5, platelets 207. Serum chemistries show sodium 141, potassium 3.8, chloride 104, CO2 23, BUN 13, creatinine 0.6, glucose 176. Uric acid 4.6, calcium 8.6, magnesium 1.9, total bilirubin 0.2, GGT 11, AST 30, ALT 24, alkaline phosphatase 55. LDH 211, total creatine kinase 270, albumin 3.5. Triglycerides 74. Coagulation studies show a PT of 14 and an INR of 1.1. ASSESSMENT AND PLAN: A 77-year-old woman with a right breast mass reportedly present and growing for approximately 4 years. The patient has no prior mammograms. Recommend initial evaluation with diagnostic mammogram and ultrasound of the right breast. Given the patient has had no prior mammogram, left screening mammogram should also be performed. I have discussed with the patient and her son, who was present throughout this discussion, findings on exam are concerning for possible primary breast tumor. However, given the location and proximity to the skin lesion in this area there is a slight possibility that this mass is related to skin lesion changes:although breast parenchyma seems more likely. Initial evaluation should include imaging of the right breast. Once this area can be better delineated on imaging, I would recommend a biopsy of the tissue where mass is felt to delineate a primary tissue source so that treatment of the underlying lesion can be appropriately directed. This was reviewed with the patient and her son. Their questions were answered. Diagnostic mammogram and ultrasound of the right breast, along with screening mammogram of the left breast is ordered for today. RC:reid Job ID: [id number] Doc ID: [id number] Haydee Resendez MD MTDD
--- NOTE | 2017-03-09 14:40 | Consultation ---
DATE OF CONSULTATION: 03/08/2017 CHIEF COMPLAINT: Right hip fracture, impacted femoral neck transcervical. HISTORY OF PRESENT ILLNESS: The patient sustained a fall at home. She lives independently. She apparently lied on the floor for 3 days, unable to get to the phone. She was ultimately found and transferred to the hospital here at [facility] where she was admitted by the hospitalist. There was some concern for rhabdomyolysis because of her extended time down. She has been diagnosed with a hip fracture. Nonetheless, she is felt to be in reasonable health to proceed to the operating room for reduction and fixation of this fracture. PAST MEDICAL HISTORY/MEDICATION: Please see the medical record. REVIEW OF SYSTEMS: Generally her 10-point review of systems is negative. She has been in reasonable health and lives independently. She does have a son who lives in [place]. PHYSICAL EXAMINATION: GENERAL: She is awake and alert. She answers questions appropriately. She is without neurovascular deficit in bilateral lower extremities. Her leg lengths are generally symmetric, maybe slight shortening on the right. She does not have any real significant deformity. She does have marked discomfort with any motion of this right hip. Her radiographs demonstrate an impacted femoral neck fracture. IMPRESSION: Transcervical/femoral neck fracture. This was an impacted fracture. PLAN: We have elected to proceed with a cannulated screw fixation. The procedure has been discussed with the patient and she wishes to proceed. OPERATIVE REPORT: PREOPERATIVE DIAGNOSIS: Transcervical impacted femoral neck fracture. POSTOPERATIVE DIAGNOSIS: Transcervical impacted femoral neck fracture. OPERATION PROPOSED: Cannulated screw fixation of right femoral neck fracture. OPERATION PERFORMED: Cannulated screw fixation of right femoral neck fracture. OPERATING SURGEON: Jesse Albrecht MD NOVELTY BALLOON ASSEMBLER AND PACKER: Fabio Posada PA-C INDICATION: This is an elderly lady with an impacted femoral neck fracture who elected to proceed with fixation. OPERATION IN DETAIL: Informed consent was obtained. She was taken to the operating room and her hip was prepped sterilely. A 1 inch incision was made over the lateral aspect of the hip. A 3.2 mm guidewire was advanced antegrade across the fracture low in the calcar and centered on the lateral view. I advanced a 6.5 cannulated screw across this. Two more screws were placed cephalad anterior and posterior. The screws were tightened into position and position was verified with multiple views on fluoroscopy. The wounds were irrigated and closed with 2-0 inverted deep dermal and Dermabond. The procedure was tolerated well. No complications. Estimated blood loss 20 mL. GDD:reid Job ID: [id number] Doc ID: [id number] Jesse Albrecht MD
--- NOTE | 2017-03-09 15:37 | Cat Scan Report ---
CLINICAL INFORMATION: Trauma - fall COMPARISON: None. TECHNIQUE: 2.5 mm helical slices were obtained in the skull base to vertex. Following reconstruction, axial reformatted images were reviewed at bone and parenchymal windows. The exam was performed using radiation dose optimization techniques including, but not limited to, automated exposure control, adjustment of the mA and/or kV according to patient size and use of iterative reconstruction technique. FINDINGS: The ventricles, sulci, fissures, and cisterns are symmetrically enlarged palpable mild age-related atrophy. There is no subdural hemorrhage or other extra-axial fluid collection appreciated. Moderate chronic ischemic changes noted in the deep cerebral white matter - more than expected for age. There is no intracerebral hemorrhage mass effect or edema. Bone windows shows no fracture or other osseous abnormality IMPRESSION: Mild atrophy and moderate chronic ischemic changes deep cerebral white matter. There is no intracerebral hemorrhage or other acute posttraumatic change Interpreted and Authenticated by: Hernandez Benedict 03/09/17
--- NOTE | 2017-03-09 17:41 | Ultrasound Report ---
CLINICAL INFORMATION: Follow up to 5:00 with ulceration. Patient unable at mammography - inpatient status recent surgery COMPARISON: None. FINDINGS: In the region of palpable lump, 5:00 position in the lower medial quadrant,, there is a five cm hypoechoic mass with irregular borders and shadowing. It is highly suspicious for invasive ductal carcinoma. It does demonstrate low impedance arterial blood flow on color/ spectral Doppler. A 1.4 cm hypoechoic nodule with spiculated borders is seen in the medial region at the 3:00 position 14 cm from the nipple. It is suspicious for a second malignancy. In the right axilla, there is a 4 cm hypoechoic mass which is likely an enlarged metastatic lymph node. IMPRESSION: 5 cm hypoechoic mass in the 5:00 position corresponding to the ulcerating palpable lump. It is suspicious for invasive ductal carcinoma. Second 1.3 cm mass in the 3:00 medial region which is suspicious for a second focus of invasive ductal carcinoma. 4 cm infiltrating lymph node in the right axilla is almost certainly metastatic adenopathy. Interpreted and Authenticated by: Hernandez Benedict 03/09/17
[2017-03-09] MEDS: SENNOSIDES/DOCUSATE SODIUM 1 TAB TABLET PO SCH (20:20)
[2017-03-09] MEDS: SENNOSIDES 1 TABLET PO SCH (20:20)
[2017-03-10] MEDS: HYDROCODONE/APAP 7.5/325MG TABLET PO PRN ×2 (02:20→20:38)
[2017-03-10] MEDS: METHOCARBAMOL 750 MG TABLET PO PRN ×2 (02:21→20:41)
[2017-03-10] MEDS: 0.9 % SODIUM CHLORIDE 10 ML SYRINGE IV SCH ×4 (02:38→20:46)
[2017-03-10 07:01] LABS: Basophils # (Auto) 0 K/mcL (0.0-0.3); Basophils % (Auto) 0.3 % (0.0-2.0); Eosinophils # (Auto) 0.2 K/mcL (0.0-0.7); Eosinophils % (Auto) 2.3 % (0.0-7.0); Granulocytes % (Auto) 62.6 % (38.0-78.0); Lymphocytes # (Auto) 1.8 K/mcL (1.5-4.8); Mean Corpuscular HGB Conc 34.2 g/dL (31.0-36.0); Mean Corpuscular Hemoglobin 31.5 pg (26.0-34.0); Monocytes # (Auto) 1.2 K/mcL (0.1-0.9); Monocytes % (Auto) 13.8 % (1.0-12.0); Platelet Count 221 K/mcL (140-440); RBC 3.64 M/mcL (4.00-5.20)
[2017-03-10 07:21] LABS: ALT/SGPT 21 U/l (0-40); Albumin 3.2 gm/dL (3.2-5.2); Albumin/Globulin Ratio 1.2 (1.0-2.3); Alkaline Phosphatase 55 U/L (39-117); Bilirubin,Direct < 0.2 mg/dL (0.0-0.3); Blood Urea Nitrogen 11 mg/dl (8-23); Gamma Glutamyl Transpeptidase 11 U/L (5-36); Magnesium 1.8 mg/dL (1.6-2.5); Uric Acid 4.4 mg/dL (2.5-8.0)
[2017-03-10] MEDS: SENNOSIDES/DOCUSATE SODIUM 1 TAB TABLET PO SCH ×2 (08:51→20:46)
[2017-03-10] MEDS: POTASSIUM CHLORIDE 40 MEQ in DEXTROSE 5% IN WATER 500 ML IV ONE ×2 (08:52→11:57)
[2017-03-10] MEDS: DORZOLAMIDE 2% OPHTH DROPS 10ML BOTTLE OU SCH ×2 (08:52→20:43)
[2017-03-10] MEDS: DOCUSATE SODIUM 100 MG CAPSULE PO SCH ×3 (08:52→20:45)
[2017-03-10] MEDS: HEPARIN 5,000 UNIT/ML VIAL SQ SCH ×3 (08:53→20:45)
[2017-03-10] MEDS ORDERED: LORazepam 2 MG/ML ORAL.SOL PO ONE (10:50)
--- NOTE | 2017-03-10 11:35 | General Surgery Progress Note ---
Surgical - Auxillary Note - Subjective Patient Information: Note initiated : 03/10/17 at 11:32 am Service Date, if different from initiated Date: [] Patient: Josefa Renee 76 y/o F admitted on 03/08/17 for Rhabdomyolysis, Right Hip Fracture. Chief Complaint: patient underwent ultrasound of right breast yesterday. Inferior medial right breast mass concerning for cancer by appearance on ultrasound. Axillary adenopathy also noted on ultrasound and concerning for metastatic disease. Mammogram unable to be done due to fact that patient cannot stand for the machine. Vital Signs Temp Pulse Resp BP Pulse Ox 97.2 F 84 18 119/59 98 03/10/17 04:00 03/10/17 04:00 03/10/17 04:00 03/10/17 04:00 03/10/17 04:00 Period Temp Pulse Resp BP Sys/Weinstein Pulse Ox Last 24 Hr 97.2 F-98.2 F 84-103 16-18 119-133/56-73 94-100 Intake and Output 03/09/17 03/10/17 03/10/17 21:59 05:59 13:59 Intake Total 1180 / 1180 400 / 400 Output Total 350 / 350 1150 / 1150 Balance 830 / 830 -750 / -750 Weight 162 lb 8 oz PE: no distress. CV: Regular rhythm Pulmonary: Breath sounds clear bilaterally Breasts: Right breast mass unchanged from yesterday's exam. A/P: I reviewed these US results with the patient and her son this morning. Recommendation is biopsy of the breast lesion and the axillary adenopathy. Discussed this with the radiologist. She will be scheduled for core needle biopsy.
[2017-03-10] MEDS ORDERED: POTASSIUM CHLORIDE 20 MEQ PACKET PO ONE (12:32)
--- NOTE | 2017-03-10 12:38 | Ultrasound Report ---
CLINICAL INFORMATION: Palpable mass lower medial quadrant of the left breast suspicious for ductal carcinoma. Axillary adenopathy and ultrasound COMPARISON: None. TECHNIQUE: The procedure and risks including possibility of bleeding and infection were explained to the patient. She understood and wished to proceed. Because of the patient's body habitus and immobility, the lesion biopsy was technically difficult. Following naval science teacher localization, the skin overlying the lesion was marked prepped and locally anesthetized 1% lidocaine using a 25-gauge needle. A 16-gauge variable biopince needle was used to obtain two core passes through the lesion. The sample sent in formalin to pathology. Patient tolerated procedure well. IMPRESSION: Ultrasound-guided core biopsy of axillary lymph node. Interpreted and Authenticated by: Hernandez Benedict 03/10/17
--- NOTE | 2017-03-10 12:54 | Ultrasound Report ---
CLINICAL INFORMATION: Large infiltrating mass in the lower medial quadrant of the left breast TECHNIQUE: Procedure and risks including the possibility of bleeding, infection and inadequate tissue sampling requiring rebiopsy were explained the patient. She understood and wished to proceed. Following cavalry scout localization, the skin overlying the lesion was marked, prepped and locally anesthetized with 1% lidocaine using a 25-gauge needle. An 11-gauge achieve core needle was used to obtain four core passes through the large mass. The tissue samples were sent in formalin to pathology and the needle was washed in normal sterile saline each pass. Post procedure scanning shows no hemorrhage or other complication IMPRESSION: Ultrasound-guided core biopsy of large suspicious mass in the inferior medial quadrant. Interpreted and Authenticated by: Hernandez Benedict 03/10/17
[2017-03-10] MEDS ORDERED: ARNICARE TOPICAL PRN (13:12)
[2017-03-10] MEDS: CALCIUM CARBONATE 500 MG TAB.CHEW CHEWED PRN (16:49)
--- NOTE | 2017-03-10 17:39 | Internal Med Progress Note ---
Medical - PN: Subj Patient information: Note initiated : 03/10/17 at 5:35 pm Service Date, if different from initiated Date: [] Patient: Josefa Renee 76 y/o F admitted on 03/08/17 for Rhabdomyolysis, Right Hip Fracture. Chief Complaint: [] Interval history: Ms. Renee is a 76 year old Female who does not like to go to the doctor, presents to the ER today after being fallen down and being on the floor for 3 days. The patient notes 3 days ago she let her dog out, and when closing the door after letting him back in, she turned and then fell, she had a bunch of keys and she supposedly landed on that and the ground. She has had right hip pain since then and has not been able to get up, pain is moderate to severe, sharp, worse with activity, better with rest, more or less stable since incident. The patient son who had tried calling her eventually called the neighbour who then called 911 The patient denies any prodromal symptoms, no cp, sob, palpitations, dizziness, altered sensorium, altered smell, change in vision or headaches. She notes she had had multiple falls in the past 22 over last 5 yrs but has not had this checked out. She notes she has not lost conciousness or never felt dizzy during these spells. The patient son notes that sometimes when she tries to move her head too fast she may get dizzy. The patient does not follow up wit [facility] and does not take any medication except for her open angle glaucoma. The patient had a bad surgical outcome in 2002? with Dr Avila for her carpal tunnel, and since then has not seen any other physician except he eye doctor The patient was covered with feces and urine in the ER nad needed to be cleaned The patient notes that she tried to move around as much as possible when on the floor but was not able t oget much help The patient has multiple moles, and skin breakthrough. The patient in the left under breast side had signifciant skin breaktrough, thickened mass approx 8x6 cms which has been there for a while as per the patient. Mar 08 patient seen examined, Dr Albrecht performed sx this afternoon, the patient labs look bet ter, she has sorness in the legs but no other complaints Dr Ramires looked at the breast mass and this looks highly suspicious for breast cancer, appears fairly advanced She would need surgery for same Dr Resendez will be here in AM. Patient otherwise has no other concerns. Mar 09 patient seen examined no acute concerns, left leg unable to use due to pain, CT pelvis was neg for left hip fracture s/p surgery, doing well as per ortho Left breast mass present, Dr Resendez to evaluate patient and decide on the care plan OT/PT to continue with therapy CT head done result pending. mar 10 pt seen examined, no complaints, besides pain ct head neg for acute pathology ck improving, off IVF tolearting oral well patient usg breast reivewed surgery plans for core biopsy. rightg breast swab growing gram neg, on IV ABX, awaiting sensitivities Pertinent ROS: Denies headache, dizziness Denies chest pain, palpitations Denies cough or shortness of breath Denies abdominal pain, nausea or vomiting. - Constitutional Vitals: Vital Signs Temp Pulse Resp BP Pulse Ox 98.9 F 84 20 132/71 94 03/10/17 16:04 03/10/17 04:00 03/10/17 16:04 03/10/17 16:04 03/10/17 16:04 Period Temp Pulse Resp BP Sys/Weinstein Pulse Ox Last 24 Hr 97.2 F-99.9 F 84-103 16-20 119-137/56-71 94-100 Intake and Output 03/10/17 03/10/17 03/10/17 05:59 13:59 21:59 Intake Total 400 / 400 200 / 200 400 / 400 Output Total 1150 / 1150 550 / 550 Balance -750 / -750 200 / 200 -150 / -150 Intake & Output: Intake & Output 03/10/17 03/10/17 03/10/17 05:59 13:59 21:59 Intake Total 400 / 400 200 / 200 400 / 400 Output Total 1150 / 1150 550 / 550 Balance -750 / -750 200 / 200 -150 / -150 Intake: Oral 400 / 400 200 / 200 400 / 400 Output: Urine Catheter Amount 1150 / 1150 550 / 550 Other: # of times incontinent of 1 Bowels Exam: Constitutional; Afebrile, cooperative, alert, not in distress. Eyes- No icterus, , No periorbital swelling Ears- Ext ear normal, hearing normal to conversation. Neck- Midline trachea, supple Respiratory system: Air Entry equal on both sides, No crackles or wheezing, no rhonchi. CVS- Rate rhythm regular, S1,S2 heard, no gallop, no rub. Abdomen- Soft nontender abdomen, no organomegaly, no tenderness, no guarding or rigidity, WELFARE DIRECTOR- AOOx3, moving all extremities, no gross focal deficit noted. Medical - PN: Obj Da - Labs CBC & Chem 7: 03/10/17 04:57 03/10/17 04:57 Labs: Abnormal Lab Results 03/10/17 03/10/17 03/09/17 04:57 04:57 04:12 WBC RBC 3.64 L Hgb 11.4 L Hct 33.5 L Gran % Lymph % (Auto) Riley % (Auto) 13.8 H Gran # Lymph # (Auto) Riley # (Auto) 1.2 H Potassium 3.2 L Chloride Carbon Dioxide Anion Gap Glucose POC Glucose Calcium 8.5 L Phosphorus Total Bilirubin AST Lactate Dehydrogenase Total Creatine Kinase 270 H 03/09/17 03/09/17 03/08/17 04:12 04:12 04:15 WBC RBC Hgb Hct Gran % 88.1 H Lymph % (Auto) 6.2 L Riley % (Auto) Gran # Lymph # (Auto) 0.4 L Riley # (Auto) Potassium Chloride Carbon Dioxide 20 L Anion Gap 17.0 H Glucose 176 H 111 H POC Glucose Calcium 8.5 L Phosphorus 2.4 L 2.2 L Total Bilirubin AST 46 H Lactate Dehydrogenase 360 H Total Creatine Kinase 772 H 03/08/17 03/07/17 03/07/17 04:15 20:47 20:47 WBC RBC Hgb Hct Gran % Lymph % (Auto) 13.6 L Riley % (Auto) Gran # Lymph # (Auto) 1.4 L Riley # (Auto) 1.2 H Potassium Chloride 95 L Carbon Dioxide Anion Gap 21.0 H Glucose 135 H POC Glucose 138 H Calcium Phosphorus Total Bilirubin 1.2 H AST 50 H Lactate Dehydrogenase Total Creatine Kinase 1137 H 03/07/17 20:47 WBC 14.0 H RBC 5.24 H Hgb 15.8 H Hct 48.1 H Gran % 84.5 H Lymph % (Auto) 5.5 L Riley % (Auto) Gran # 11.8 H Lymph # (Auto) 0.8 L Riley # (Auto) 1.3 H Potassium Chloride Carbon Dioxide Anion Gap Glucose POC Glucose Calcium Phosphorus Total Bilirubin AST Lactate Dehydrogenase Total Creatine Kinase Meds: Medications Acetaminophen (Tylenol) 650 mg PO Q6HP PRN PRN Reason: PAIN/FEVER > 101 Hydrocodone Bitart/Acetaminophen (Newcomb 7.5/325mg) 0 tab PO Q4HP PRN PRN Reason: PAIN LEVEL 3-6 Last Admin: 03/10/17 02:20 Dose: 1 tab Albuterol Sulfate (Ventolin) 2.5 mg NEB Q2HP PRN PRN Reason: Shortness Of Breath Bisacodyl (Dulcolax) 10 mg [place] Q2-3DAYS PRN PRN Reason: Constipation Calcium Carbonate/Glycine (Tums) 500 - 1,000 mg CHEWED Q6HP PRN PRN Reason: Dyspepsia Last Admin: 03/10/17 16:49 Dose: 500 mg Ceftazidime (Fortaz) 2 gm IV Q8H [facility] Last Admin: 03/10/17 10:17 Dose: 2 gm Docusate Sodium (Colace) 100 mg PO BID [facility] Last Admin: 03/10/17 09:07 Dose: Not Given Dorzolamide HCl (Trusopt 2% Ophth Drops) 1 gtt OU BID [facility] Last Admin: 03/10/17 08:52 Dose: 1 gtt Heparin Sodium (Porcine) (Heparin) 5,000 unit SQ Q12 [facility] Last Admin: 03/10/17 09:08 Dose: Not Given Hydromorphone HCl (Dilaudid) 0.5 mg IV Q2HP PRN PRN Reason: PAIN LEVEL > 6 Last Admin: 03/08/17 11:20 Dose: 0.5 mg Lactobacillus Rhamnosus (Culturelle) 1 cap PO DAILY IVTA Magnesium Hydroxide (Milk Of Magnesia) 30 ml PO BIDP PRN PRN Reason: Constipation Methocarbamol (Robaxin) 750 mg PO Q6HP PRN PRN Reason: Muscle Spasm Last Admin: 03/10/17 02:21 Dose: 750 mg Ondansetron HCl (Zofran) 4 mg IV Q6HP PRN PRN Reason: Nausea And Vomiting Ondansetron HCl (Zofran Odt) 4 mg SL Q4HP PRN PRN Reason: Nausea And Vomiting Arnicare Gel 1 dose TOPICAL PRN PRN PRN Reason: Pain Polyethylene Glycol (Miralax) 17 gm PO DAILYP PRN PRN Reason: Constipation Senna (Senokot) 2 tab PO HS [facility] Last Admin: 03/09/17 20:20 Dose: Not Given Senna/Docusate Sodium (Senna Plus Tablet) 2 tab PO BID [facility] Last Admin: 03/10/17 08:51 Dose: 2 tab Sodium Biphosphate/Sodium Phosphate (Fleets Adult) 1 dose [place] Q3-4DAYS PRN PRN Reason: Constipation Sodium Chloride (Saline Flush) 10 ml IV Q8 [facility] Last Admin: 03/10/17 13:15 Dose: 10 ml Throat Lozenges (Cepacol) 1 lozenge PO PRN PRN PRN Reason: Sore Throat Medical - PN: A/P - Time Spent With Patient Total time spent is greater than 50% in coordination of care (as documented) at patient's floor/unit and/or counseling patient: - Narrative A/P Narrative: A/P Right Hip Fracture: s/p surgery by ortho. management as per them Rhabdomyolysis: CK improved, d/c IVF, tolerating orals well. SIRS syndrome: left breast site potentially infected, start on ceftazidine, wound cx is karely neg, await final sensitivities. Left Breast Mass: going on for few years? seen b y Dr Ramires, Dr Resendez will follow, likely locally advanced breast cancer. planned biopsy today Recurrent Fall: Ct head is neg DVT: hep sq DNR as per pt wishes, son in the room during this conversation. Plan of care reviewed with pt and her son. Medical - PN: Qual - VTE Deep Vein Thrombosis/Pulmonary Embolism Present on Admission: No
[2017-03-10] MEDS: SENNOSIDES 1 TABLET PO SCH (20:46)
[2017-03-11] MEDS: HYDROCODONE/APAP 7.5/325MG TABLET PO PRN ×3 (02:07→19:34)
[2017-03-11] MEDS: 0.9 % SODIUM CHLORIDE 10 ML SYRINGE IV SCH ×2 (04:50→14:50)
[2017-03-11 06:51] LABS: Basophils # (Auto) 0 K/mcL (0.0-0.3); Basophils % (Auto) 0.5 % (0.0-2.0); Eosinophils # (Auto) 0.2 K/mcL (0.0-0.7); Eosinophils % (Auto) 3.1 % (0.0-7.0); Granulocytes % (Auto) 61.2 % (38.0-78.0); Lymphocytes # (Auto) 1.5 K/mcL (1.5-4.8); Lymphocytes % (Auto) 20.9 % (15.5-49.0); Mean Cell Volume 91.4 fL (80.0-100.0); Mean Corpuscular HGB Conc 33.9 g/dL (31.0-36.0); Monocytes % (Auto) 14.3 % (1.0-12.0); Platelet Count 225 K/mcL (140-440); RBC 3.72 M/mcL (4.00-5.20); Red Cell Distribution Width 12.7 % (11.5-14.5)
[2017-03-11 07:07] LABS: ALT/SGPT 17 U/l (0-40); Albumin 3.1 gm/dL (3.2-5.2); Albumin/Globulin Ratio 1.2 (1.0-2.3); Alkaline Phosphatase 50 U/L (39-117); Bilirubin,Direct < 0.2 mg/dL (0.0-0.3); Blood Urea Nitrogen 12 mg/dl (8-23); Gamma Glutamyl Transpeptidase 11 U/L (5-36); Magnesium 1.9 mg/dL (1.6-2.5)
[2017-03-11] MEDS: LACTOBACILLUS 1 CAPSULE PO SCH (09:22)
[2017-03-11] MEDS: DOCUSATE SODIUM 100 MG CAPSULE PO SCH ×2 (09:24→19:32)
[2017-03-11] MEDS: HEPARIN 5,000 UNIT/ML VIAL SQ SCH ×2 (09:25→19:34)
[2017-03-11] MEDS: SENNOSIDES/DOCUSATE SODIUM 1 TAB TABLET PO SCH ×2 (09:25→19:32)
[2017-03-11] MEDS: DORZOLAMIDE 2% OPHTH DROPS 10ML BOTTLE OU SCH ×2 (09:35→19:41)
--- NOTE | 2017-03-11 12:03 | General Surgery Progress Note ---
Surgical - Auxillary Note - Subjective Patient Information: Note initiated : 03/11/17 at 11:51 am Service Date, if different from initiated Date: [] Patient: Josefa Renee 76 y/o F admitted on 03/08/17 for Rhabdomyolysis, Right Hip Fracture. Chief Complaint: Patient sitting up in bed. Rested well. No complaints of pain at breast or axilla biopsy sites from yesterday. Reports left leg pain. Vital Signs Temp Pulse Resp BP Pulse Ox 98.2 F 81 16 125/76 98 03/11/17 06:39 03/11/17 03:45 03/11/17 06:39 03/11/17 06:39 03/11/17 06:39 Period Temp Pulse Resp BP Sys/Weinstein Pulse Ox Last 24 Hr 97.7 F-99.9 F 64-98 16-20 112-137/57-76 94-98 Intake and Output 03/10/17 03/11/17 03/11/17 21:59 05:59 13:59 Intake Total 400 / 400 400 / 400 Output Total 550 / 550 1075 / 1075 Balance -150 / -150 -675 / -675 Weight 165 lb PE: No distress. Chest: clear bilaterally CV: regular rate and rhythm Breast: Right breast and axilla without hematoma. A/P: Right breast mass and axillary adenopathy suspicious for carcinoma. S/p percutaneous biopsy yesterday. Awaiting pathology results to decide next course of treatment. Had a long discussion with patient this morning where she reports she has known about the mass but did not seek attention to it in part out of fear. Additionally she expressed concern that she might become a burden to her children and that she does not want this. I again reviewed with her the purpose of taking the evaluation step by step and first identifying the tissue type of this mass so that we can actually tell her what her treatment options might be. The more information we have the better our ability and explain the likely course and to give her options. After our discussions she reported that she is comfortable with our approach at evaluating this mass and she seemed much less anxious. Total time spent with patient in evaluation and discussion was 25 minutes. Orders placed for right breast wound to be cleaned daily and dressed with silvadene ointment.
[2017-03-11] MEDS: METHOCARBAMOL 750 MG TABLET PO PRN (19:34)
[2017-03-11] MEDS: SENNOSIDES 1 TABLET PO SCH (19:35)
--- NOTE | 2017-03-11 20:58 | Internal Med Progress Note ---
Medical - PN: Subj Patient information: Note initiated : 03/11/17 at 8:53 pm Service Date, if different from initiated Date: [] Patient: Josefa Renee 76 y/o F admitted on 03/08/17 for Rhabdomyolysis, Right Hip Fracture. Chief Complaint: [] Interval history: Ms. Renee is a 76 year old Female who does not like to go to the doctor, presents to the ER today after being fallen down and being on the floor for 3 days. The patient notes 3 days ago she let her dog out, and when closing the door after letting him back in, she turned and then fell, she had a bunch of keys and she supposedly landed on that and the ground. She has had right hip pain since then and has not been able to get up, pain is moderate to severe, sharp, worse with activity, better with rest, more or less stable since incident. The patient son who had tried calling her eventually called the neighbour who then called 911 The patient denies any prodromal symptoms, no cp, sob, palpitations, dizziness, altered sensorium, altered smell, change in vision or headaches. She notes she had had multiple falls in the past 22 over last 5 yrs but has not had this checked out. She notes she has not lost conciousness or never felt dizzy during these spells. The patient son notes that sometimes when she tries to move her head too fast she may get dizzy. The patient does not follow up wit [facility] physician and does not take any medication except for her open angle glaucoma. The patient had a bad surgical outcome in 2002? with Dr Avila for her carpal tunnel, and since then has not seen any other physician except he eye doctor The patient was covered with feces and urine in the ER nad needed to be cleaned The patient notes that she tried to move around as much as possible when on the floor but was not able t oget much help The patient has multiple moles, and skin breakthrough. The patient in the left under breast side had signifciant skin breaktrough, thickened mass approx 8x6 cms which has been there for a while as per the patient. Mar 08 patient seen examined, Dr Albrecht performed sx this afternoon, the patient labs look bet ter, she has sorness in the legs but no other complaints Dr Ramires looked at the breast mass and this looks highly suspicious for breast cancer, appears fairly advanced She would need surgery for same Dr Resendez will be here in AM. Patient otherwise has no other concerns. Mar 09 patient seen examined no acute concerns, left leg unable to use due to pain, CT pelvis was neg for left hip fracture s/p surgery, doing well as per ortho Left breast mass present, Dr Resendez to evaluate patient and decide on the care plan OT/PT to continue with therapy CT head done result pending. mar 10 pt seen examined, no complaints, besides pain ct head neg for acute pathology ck improving, off IVF tolearting oral well patient usg breast reivewed surgery plans for core biopsy. rightg breast swab growing gram neg, on IV ABX, awaiting sensitivities mar 11 "I feel almost human again." R hip fracture pain is controlled. Still has some L leg soft tissue pain d/t being down Req'd O2 p sedation for breast bx yesterday. Continuing to wean. Breast wound growing Acinetobacter lwoffii C diff is negative More open to discussing possibility of cancer treatment. She states she has had mistrust in the medical system since her carpal tunnel release in 2007 left her with bilateral hand numbness. ROS: no fever or cp - Constitutional Vitals: Vital Signs Temp Pulse Resp BP Pulse Ox 98.8 F 92 H 18 154/85 99 03/11/17 20:00 03/11/17 20:00 03/11/17 20:00 03/11/17 20:00 03/11/17 20:00 Period Temp Pulse Resp BP Sys/Weinstein Pulse Ox Last 24 Hr 97.6 F-98.8 F 64-92 16-18 112-154/57-85 94-99 Intake and Output 03/11/17 03/11/17 03/11/17 05:59 13:59 21:59 Intake Total 400 / 400 220 / 220 Output Total 1075 / 1075 1050 / 1050 Balance -675 / -675 -830 / -830 Weight 164 lb Patient Weight 03/12/17 05:59 Weight 164 lb Intake & Output: Intake & Output 03/11/17 03/11/17 03/11/17 05:59 13:59 21:59 Intake Total 400 / 400 220 / 220 Output Total 1075 / 1075 1050 / 1050 Balance -675 / -675 -830 / -830 Weight 164 lb Intake: Oral 400 / 400 220 / 220 Output: Urine Catheter Amount 1075 / 1075 1050 / 1050 Other: Meal Dinner Percent of Meal Consumed 100% Feeding Ability Independent # Bowel Movements 1 Exam: Constitutional; Afebrile, cooperative, alert, not in distress. Eyes- No icterus, No periorbital swelling Ears- Ext ear normal, hearing normal to conversation. Neck- Midline trachea, supple Respiratory : Air Entry equal on both sides, No crackles or wheezing, no rhonchi. CV- Rate rhythm regular, S1,S2 heard, no gallop, no rub. Abdomen- Soft nontender abdomen, no organomegaly, no tenderness, no guarding or rigidity, NRO- AOx3, moving all extremities, no gross focal deficit noted. Skin: wet, macerated area under R breast extending into caudal aspect of epigastric region. Lesion is lichenified and nodular. Medical - PN: Obj Da - Labs CBC & Chem 7: 03/11/17 04:46 03/11/17 04:46 Labs: Abnormal Lab Results 03/11/17 03/11/17 03/10/17 04:46 04:46 04:57 RBC 3.72 L Hgb 11.5 L Hct 34.0 L Gran % Lymph % (Auto) [place] % (Auto) 14.3 H Lymph # (Auto) [place] # (Auto) 1.0 H Potassium 3.2 L Glucose Calcium 8.5 L Phosphorus Total Creatine Kinase Total Protein 5.7 L Albumin 3.1 L 03/10/17 03/09/17 03/09/17 04:57 04:12 04:12 RBC 3.64 L Hgb 11.4 L Hct 33.5 L Gran % Lymph % (Auto) [place] % (Auto) 13.8 H Lymph # (Auto) [place] # (Auto) 1.2 H Potassium Glucose 176 H Calcium Phosphorus 2.4 L Total Creatine Kinase 270 H Total Protein Albumin 03/09/17 04:12 RBC Hgb Hct Gran % 88.1 H Lymph % (Auto) 6.2 L [place] % (Auto) Lymph # (Auto) 0.4 L [place] # (Auto) Potassium Glucose Calcium Phosphorus Total Creatine Kinase Total Protein Albumin Meds: Medications Acetaminophen (Tylenol) 650 mg PO Q6HP PRN PRN Reason: PAIN/FEVER > 101 Hydrocodone Bitart/Acetaminophen ([place] 7.5/325mg) 0 tab PO Q4HP PRN PRN Reason: PAIN LEVEL 3-6 Last Admin: 03/11/17 19:34 Dose: 1 tab Albuterol Sulfate (Ventolin) 2.5 mg NEB Q2HP PRN PRN Reason: Shortness Of Breath Bisacodyl (Dulcolax) 10 mg LA Q2-3DAYS PRN PRN Reason: Constipation Calcium Carbonate/Glycine (Tums) 500 - 1,000 mg CHEWED Q6HP PRN PRN Reason: Dyspepsia Last Admin: 03/10/17 16:49 Dose: 500 mg Ceftazidime (Fortaz) 2 gm IV Q8H [facility] Last Admin: 03/11/17 17:47 Dose: 2 gm Docusate Sodium (Colace) 100 mg PO BID [facility] Last Admin: 03/11/17 19:32 Dose: Not Given Dorzolamide HCl (Trusopt 2% Ophth Drops) 1 gtt OU BID [facility] Last Admin: 03/11/17 19:41 Dose: 1 gtt Heparin Sodium (Porcine) (Heparin) 5,000 unit SQ Q12 [facility] Last Admin: 03/11/17 19:34 Dose: Not Given Hydromorphone HCl (Dilaudid) 0.5 mg IV Q2HP PRN PRN Reason: PAIN LEVEL > 6 Last Admin: 03/08/17 11:20 Dose: 0.5 mg Lactobacillus Rhamnosus (Culturelle) 1 cap PO DAILY [facility] Last Admin: 03/11/17 09:22 Dose: 1 cap Magnesium Hydroxide (Milk Of Magnesia) 30 ml PO BIDP PRN PRN Reason: Constipation Methocarbamol (Robaxin) 750 mg PO Q6HP PRN PRN Reason: Muscle Spasm Last Admin: 03/11/17 19:34 Dose: 750 mg Ondansetron HCl (Zofran) 4 mg IV Q6HP PRN PRN Reason: Nausea And Vomiting Ondansetron HCl (Zofran Odt) 4 mg SL Q4HP PRN PRN Reason: Nausea And Vomiting Arnicare Gel 1 dose TOPICAL PRN PRN PRN Reason: Pain Last Admin: 03/10/17 22:35 Dose: 1 dose Polyethylene Glycol (Miralax) 17 gm PO DAILYP PRN PRN Reason: Constipation Senna (Senokot) 2 tab PO HS [facility] Last Admin: 03/11/17 19:35 Dose: Not Given Senna/Docusate Sodium (Senna Plus Tablet) 2 tab PO BID [facility] Last Admin: 03/11/17 19:32 Dose: Not Given Silver Sulfadiazine (Silvadene) 1 dose TOPICAL DAILY [facility] Sodium Biphosphate/Sodium Phosphate (Fleets Adult) 1 dose LA Q3-4DAYS PRN PRN Reason: Constipation Sodium Chloride (Saline Flush) 10 ml IV Q8 [facility] Last Admin: 03/11/17 14:50 Dose: 10 ml Throat Lozenges (Cepacol) 1 lozenge PO PRN PRN PRN Reason: Sore Throat Medical - PN: A/P - Time Spent With Patient Total time spent is greater than 50% in coordination of care (as documented) at patient's floor/unit and/or counseling patient: 25 - 35 minutes - Narrative A/P Narrative: A/P Right Hip Fracture: s/p ORIF on 03/[address] Albrecht. management per ortho. PT/ OT following. Will need SNF on DC. Rhabdomyolysis, resolved: CK improved, d/c'd IVF, tolerating orals well. SIRS syndrome: low grade temp, leukocytosis on admit. Initially started on CTX, now on ceftazidime. Source is possibly is breast wound vs hip wound w cx growing Acinetobacter lwoffi. This can be normal skin henrique or pathogen. Often associated with MDR, but fortunately hers is pansensitive. Await final hip cx wound and then likely transition to complete 7-day course with Augmentin (to end on 03/14). Left Breast Mass: going on for few years? seen by Dr Mal Hill following. Breast bx done 03/[address] bx[address] D/W Dr. Resendez today. BX will likely take 48 hours to result. If medically stable, can DC to SNF and f/u as OP. Recurrent Fall: Ct head is neg DVT: hep sq DNR as per pt wishes, son in the room during this conversation per Dr. Kohli's notes. Dispo: Likely to SNF in ~2 days pending hip wound cx and final Abx choice. Medical - PN: Qual - VTE Deep Vein Thrombosis/Pulmonary Embolism Present on Admission: No
[2017-03-12] MEDS: 0.9 % SODIUM CHLORIDE 10 ML SYRINGE IV SCH ×4 (01:25→21:42)
[2017-03-12] MEDS: HYDROCODONE/APAP 7.5/325MG TABLET PO PRN ×2 (01:37→11:24)
[2017-03-12 05:34] LABS: Basophils # (Auto) 0 K/mcL (0.0-0.3); Basophils % (Auto) 0.6 % (0.0-2.0); Eosinophils # (Auto) 0.3 K/mcL (0.0-0.7); Eosinophils % (Auto) 4.3 % (0.0-7.0); Granulocytes % (Auto) 58.5 % (38.0-78.0); Lymphocytes # (Auto) 1.5 K/mcL (1.5-4.8); Mean Cell Volume 92.3 fL (80.0-100.0); Mean Corpuscular HGB Conc 33.6 g/dL (31.0-36.0); Monocytes # (Auto) 0.9 K/mcL (0.1-0.9); Monocytes % (Auto) 13.6 % (1.0-12.0); Platelet Count 237 K/mcL (140-440); Red Cell Distribution Width 12.8 % (11.5-14.5)
[2017-03-12 05:53] LABS: ALT/SGPT 16 U/l (0-40); Albumin 3.1 gm/dL (3.2-5.2); Albumin/Globulin Ratio 1.1 (1.0-2.3); Alkaline Phosphatase 53 U/L (39-117); Bilirubin,Direct < 0.2 mg/dL (0.0-0.3); Blood Urea Nitrogen 14 mg/dl (8-23); Gamma Glutamyl Transpeptidase 13 U/L (5-36); Magnesium 1.9 mg/dL (1.6-2.5); Uric Acid 4.1 mg/dL (2.5-8.0)
[2017-03-12] MEDS: CALCIUM CARBONATE 500 MG TAB.CHEW CHEWED PRN (07:09)
[2017-03-12] MEDS: DOCUSATE SODIUM 100 MG CAPSULE PO SCH (08:55)
[2017-03-12] MEDS: LACTOBACILLUS 1 CAPSULE PO SCH (08:55)
[2017-03-12] MEDS: HEPARIN 5,000 UNIT/ML VIAL SQ SCH ×2 (08:55→21:00)
[2017-03-12] MEDS: SENNOSIDES/DOCUSATE SODIUM 1 TAB TABLET PO SCH (08:56)
[2017-03-12] MEDS: DORZOLAMIDE 2% OPHTH DROPS 10ML BOTTLE OU SCH ×2 (09:01→21:00)
[2017-03-12] MEDS: SILVER SULFADIAZINE CREAM.TOP 25GM TOPICAL SCH (09:04)
[2017-03-12] MEDS: METHOCARBAMOL 750 MG TABLET PO PRN ×2 (11:27→21:00)
--- NOTE | 2017-03-12 11:58 | Internal Med Progress Note ---
Medical - PN: Subj Patient information: Note initiated : 03/12/17 at 11:54 am Service Date, if different from initiated Date: [] Patient: Josefa Renee 76 y/o F admitted on 03/08/17 for Rhabdomyolysis, Right Hip Fracture. Chief Complaint: [] Interval history: Ms. Renee is a 76 year old Female who does not like to go to the doctor, presents to the ER today after being fallen down and being on the floor for 3 days. The patient notes 3 days ago she let her dog out, and when closing the door after letting him back in, she turned and then fell, she had a bunch of keys and she supposedly landed on that and the ground. She has had right hip pain since then and has not been able to get up, pain is moderate to severe, sharp, worse with activity, better with rest, more or less stable since incident. The patient son who had tried calling her eventually called the neighbour who then called 911 The patient denies any prodromal symptoms, no cp, sob, palpitations, dizziness, altered sensorium, altered smell, change in vision or headaches. She notes she had had multiple falls in the past 22 over last 5 yrs but has not had this checked out. She notes she has not lost conciousness or never felt dizzy during these spells. The patient son notes that sometimes when she tries to move her head too fast she may get dizzy. The patient does not follow up wit [facility] physician and does not take any medication except for her open angle glaucoma. The patient had a bad surgical outcome in 2002? with Dr Avila for her carpal tunnel, and since then has not seen any other physician except he eye doctor The patient was covered with feces and urine in the ER nad needed to be cleaned The patient notes that she tried to move around as much as possible when on the floor but was not able t oget much help The patient has multiple moles, and skin breakthrough. The patient in the left under breast side had signifciant skin breaktrough, thickened mass approx 8x6 cms which has been there for a while as per the patient. Mar 08 patient seen examined, Dr Albrecht performed sx this afternoon, the patient labs look bet ter, she has sorness in the legs but no other complaints Dr Ramires looked at the breast mass and this looks highly suspicious for breast cancer, appears fairly advanced She would need surgery for same Dr Resendez will be here in AM. Patient otherwise has no other concerns. Dec 14 patient seen examined no acute concerns, left leg unable to use due to pain, CT pelvis was neg for left hip fracture s/p surgery, doing well as per ortho Left breast mass present, Dr Resendez to evaluate patient and decide on the care plan OT/PT to continue with therapy CT head done result pending. feb 15 pt seen examined, no complaints, besides pain ct head neg for acute pathology ck improving, off IVF tolearting oral well patient usg breast reivewed surgery plans for core biopsy. rightg breast swab growing gram neg, on IV ABX, awaiting sensitivities feb 16 "I feel almost human again." R hip fracture pain is controlled. Still has some L leg soft tissue pain d/t being down Req'd O2 p sedation for breast bx yesterday. Continuing to wean. Breast wound growing Acinetobacter lwoffii C diff is negative More open to discussing possibility of cancer treatment. She states she has had mistrust in the medical system since her carpal tunnel release in 2007 left her with bilateral hand numbness. Mar 12 Her left thigh (not the fractured hip) pain has improved. Her son is concerned that she may have an occult fracture. It no longer hurts to the touch. She has been having loose bowel movements after being started on laxatives. She attributed her loose bowel movements to her heparin injections and has been refusing them, but after discussing her risk of clots with probable cancer and immobility with hip fracture, she is now agreeable to receiving DVT prophylaxis. Left hip x-ray has been ordered to evaluate for hip fracture. If this is negative, will DC Tere. If loose stools do not resolve with holding bowel regimen, will order C. difficile as she has been on antibiotics. ROS: no fever or cp - Constitutional Vitals: Vital Signs Temp Pulse Resp BP Pulse Ox 97.6 F 90 16 146/83 94 03/12/17 07:12 03/12/17 07:12 03/12/17 07:12 03/12/17 07:12 03/12/17 07:12 Period Temp Pulse Resp BP Sys/Weinstein Pulse Ox Last 24 Hr 97.6 F-98.8 F 74-94 16-20 122-154/58-85 94-99 Intake and Output 03/11/17 03/12/17 03/12/17 21:59 05:59 13:59 Intake Total 220 / 220 600 / 600 240 / 240 Output Total 1050 / 1050 2124 / 2124 Balance -830 / -830 -1525 / -1525 240 / 240 Weight 164 lb Intake & Output: Intake & Output 03/11/17 03/12/17 03/12/17 21:59 05:59 13:59 Intake Total 220 / 220 600 / 600 240 / 240 Output Total 1050 / 1050 2124 / 2124 Balance -830 / -830 -1525 / -1525 240 / 240 Weight 164 lb Intake: Oral 220 / 220 600 / 600 240 / 240 Output: Urine Catheter Amount 1050 / 1050 2124 / 2124 Other: Meal Dinner Breakfast Percent of Meal Consumed 100% 100% Feeding Ability Independent Assist with Tray Set Up # Bowel Movements 1 1 Exam: Constitutional; Afebrile, cooperative, alert, not in distress. Eyes- No icterus, No periorbital swelling Ears- Ext ear normal, hearing normal to conversation. Neck- Midline trachea, supple Respiratory : Air Entry equal on both sides, No crackles or wheezing, no rhonchi. CV- Rate rhythm regular, S1,S2 heard, no gallop, no rub. Abdomen- Soft nontender abdomen, no organomegaly, no tenderness, no guarding or rigidity, NRO- AOx3, moving all extremities, no gross focal deficit noted. Ext: L thigh tender along lateral aspect. + edema. No groin pain. Medical - PN: Obj Da - Labs CBC & Chem 7: 03/12/17 04:10 03/12/17 04:10 Labs: Abnormal Lab Results 03/12/17 03/12/17 03/11/17 04:10 04:10 04:46 RBC 3.80 L Hgb 11.8 L Hct 35.0 L [place] % (Auto) 13.6 H [place] # (Auto) Potassium Glucose 116 H Calcium Total Protein 5.8 L 5.7 L Albumin 3.1 L 3.1 L 03/11/17 03/10/17 03/10/17 04:46 04:57 04:57 RBC 3.72 L 3.64 L Hgb 11.5 L 11.4 L Hct 34.0 L 33.5 L [place] % (Auto) 14.3 H 13.8 H [place] # (Auto) 1.0 H 1.2 H Potassium 3.2 L Glucose Calcium 8.5 L Total Protein Albumin Meds: Medications Acetaminophen (Tylenol) 650 mg PO Q6HP PRN PRN Reason: PAIN/FEVER > 101 Hydrocodone Bitart/Acetaminophen ([place] 7.5/325mg) 0 tab PO Q4HP PRN PRN Reason: PAIN LEVEL 3-6 Last Admin: 03/12/17 11:24 Dose: 1 tab Albuterol Sulfate (Ventolin) 2.5 mg NEB Q2HP PRN PRN Reason: Shortness Of Breath Bisacodyl (Dulcolax) 10 mg RI Q2-3DAYS PRN PRN Reason: Constipation Calcium Carbonate/Glycine (Tums) 500 - 1,000 mg CHEWED Q6HP PRN PRN Reason: Dyspepsia Last Admin: 03/12/17 07:09 Dose: 500 mg Ceftazidime (Fortaz) 2 gm IV Q8H [facility] Last Admin: 03/12/17 10:13 Dose: 2 gm Docusate Sodium (Colace) 100 mg PO BID [facility] Last Admin: 03/12/17 08:55 Dose: Not Given Dorzolamide HCl (Trusopt 2% Ophth Drops) 1 gtt OU BID [facility] Last Admin: 03/12/17 09:01 Dose: 1 gtt Heparin Sodium (Porcine) (Heparin) 5,000 unit SQ Q12 [facility] Last Admin: 03/12/17 08:55 Dose: Not Given Hydromorphone HCl (Dilaudid) 0.5 mg IV Q2HP PRN PRN Reason: PAIN LEVEL > 6 Last Admin: 03/08/17 11:20 Dose: 0.5 mg Lactobacillus Rhamnosus (Culturelle) 1 cap PO DAILY [facility] Last Admin: 03/12/17 08:55 Dose: 1 cap Magnesium Hydroxide (Milk Of Magnesia) 30 ml PO BIDP PRN PRN Reason: Constipation Methocarbamol (Robaxin) 750 mg PO Q6HP PRN PRN Reason: Muscle Spasm Last Admin: 03/12/17 11:27 Dose: 750 mg Ondansetron HCl (Zofran) 4 mg IV Q6HP PRN PRN Reason: Nausea And Vomiting Ondansetron HCl (Zofran Odt) 4 mg SL Q4HP PRN PRN Reason: Nausea And Vomiting Arnicare Gel 1 dose TOPICAL PRN PRN PRN Reason: Pain Last Admin: 03/10/17 22:35 Dose: 1 dose Polyethylene Glycol (Miralax) 17 gm PO DAILYP PRN PRN Reason: Constipation Senna (Senokot) 2 tab PO HS [facility] Last Admin: 03/11/17 19:35 Dose: Not Given Senna/Docusate Sodium (Senna Plus Tablet) 2 tab PO BID [facility] Last Admin: 03/12/17 08:56 Dose: Not Given Silver Sulfadiazine (Silvadene) 1 dose TOPICAL DAILY [facility] Last Admin: 03/12/17 09:04 Dose: 1 dose Sodium Biphosphate/Sodium Phosphate (Fleets Adult) 1 dose RI Q3-4DAYS PRN PRN Reason: Constipation Sodium Chloride (Saline Flush) 10 ml IV Q8 [facility] Last Admin: 03/12/17 07:00 Dose: 10 ml Throat Lozenges (Cepacol) 1 lozenge PO PRN PRN PRN Reason: Sore Throat Medical - PN: A/P - Time Spent With Patient Total time spent is greater than 50% in coordination of care (as documented) at patient's floor/unit and/or counseling patient: - Narrative A/P Narrative: A/P Right Hip Fracture: s/p ORIF on 03/[address] Albrecht. management per ortho. PT/ OT following. Will need SNF on DC. Rhabdomyolysis, resolved: CK improved, d/c'd IVF, tolerating orals well. SIRS syndrome: low grade temp, leukocytosis on admit. Initially started on CTX, now on ceftazidime. Source is possibly is breast wound vs hip wound w cx growing Acinetobacter lwoffi. This can be normal skin henrique or pathogen. Often associated with MDR, but fortunately hers is pansensitive. Await final hip cx wound and then likely transition to complete 7-day course with Augmentin (to end on 03/14). L thigh pain: suspect this related to her resolving rhabdo rather than fx. L hip xray. If no fx, DC [place] Loose stools: DC scheduled bowel meds. If persists, will work up for C diff. Left Breast Mass: going on for few years? seen by Dr Mal Hill following. Breast bx done 03/[address] bx[address] D/W Dr. Resendez 03/11. BX will likely take 48 hours to result. If medically stable, can DC to SNF and f/u as OP. Recurrent Fall: Ct head is neg DVT: hep sq. Has been intermittently refusing, but now will accept. DNR as per pt wishes, son in the room during this conversation per Dr. Kohli's notes. Dispo: Likely to SNF in ~1-2 days pending hip wound cx and final Abx choice. Medical - PN: Qual - VTE Deep Vein Thrombosis/Pulmonary Embolism Present on Admission: No
--- NOTE | 2017-03-12 16:22 | XRay Report ---
ORIGINAL REPORT CLINICAL INFORMATION: Left hip pain COMPARISON: 03/07/2017 plain film FINDINGS: Subcapital fracture as been reduced to anatomic alignment and transfixed by three screws. Both SI and hip joints are normal in width alignment without arthritic change. Soft tissues are normal. IMPRESSION: ORIF subcapital fracture right hip which is anatomically aligned. No other abnormality ADDENDUM #1 The left hip is normal in width and alignment arthritic changes and shows no fracture Interpreted and Authenticated by: Hernandez Benedict 03/19/17
[2017-03-12] MEDS ORDERED: SENNOSIDES 1 TABLET PO PRN (21:00)
[2017-03-13] MEDS: HYDROCODONE/APAP 7.5/325MG TABLET PO PRN (01:58)
[2017-03-13] MEDS: 0.9 % SODIUM CHLORIDE 10 ML SYRINGE IV SCH (05:42)
[2017-03-13] MEDS: METHOCARBAMOL 750 MG TABLET PO PRN (05:48)
[2017-03-13 06:04] LABS: Basophils # (Auto) 0 K/mcL (0.0-0.3); Basophils % (Auto) 0.4 % (0.0-2.0); Eosinophils # (Auto) 0.3 K/mcL (0.0-0.7); Eosinophils % (Auto) 4.4 % (0.0-7.0); Granulocytes % (Auto) 61.1 % (38.0-78.0); Lymphocytes # (Auto) 1.3 K/mcL (1.5-4.8); Lymphocytes % (Auto) 21.2 % (15.5-49.0); Mean Cell Volume 91.7 fL (80.0-100.0); Mean Corpuscular HGB Conc 33.9 g/dL (31.0-36.0); Mean Corpuscular Hemoglobin 31.1 pg (26.0-34.0); Monocytes # (Auto) 0.8 K/mcL (0.1-0.9); Monocytes % (Auto) 12.9 % (1.0-12.0); Platelet Count 264 K/mcL (140-440); RBC 4.04 M/mcL (4.00-5.20); Red Cell Distribution Width 12.6 % (11.5-14.5)
[2017-03-13 06:32] LABS: ALT/SGPT 19 U/l (0-40); Albumin 3.4 gm/dL (3.2-5.2); Albumin/Globulin Ratio 1.2 (1.0-2.3); Alkaline Phosphatase 58 U/L (39-117); Bilirubin,Direct < 0.2 mg/dL (0.0-0.3); Blood Urea Nitrogen 16 mg/dl (8-23); Gamma Glutamyl Transpeptidase 15 U/L (5-36); Magnesium 1.9 mg/dL (1.6-2.5)
[2017-03-13] MEDS: LACTOBACILLUS 1 CAPSULE PO SCH (08:19)
[2017-03-13] MEDS: HEPARIN 5,000 UNIT/ML VIAL SQ SCH (08:19)
[2017-03-13] MEDS: DORZOLAMIDE 2% OPHTH DROPS 10ML BOTTLE OU SCH (08:19)
[2017-03-13] MEDS: SILVER SULFADIAZINE CREAM.TOP 25GM TOPICAL SCH (10:48)
--- NOTE | 2017-03-13 11:37 | Discharge Summary ---
Medical - DS: Prov Patient information: Note initiated : 03/13/17 at 11:37 am Service Date, if different from initiated Date: [] Patient: Josefa Renee 76 y/o F admitted on 03/08/17 for Rhabdomyolysis, Right Hip Fracture. Chief Complaint: [] Date of admission: 03/08/17 00:42 Discharge date: 03/13/17 Primary care physician: No PCP known. Admitting clinician: Deloris Kohli Consults: 03/07/17 23:00 Consult to Physician [CONS] Stat Comment: Consulting Provider: Deloris Kohli Reason For Exam: Physician to Consult 03/09/17 11:45 Consult to Physician [CONS] Routine Comment: Consulting Provider: Haydee Resendez Reason For Exam: Physician to Consult Dr. Albrecht, orthopedics Attending physician on discharge: Otilia Raines Medical - DS: Meds - Discharge Medications Prescriptions: Amoxicillin/Potassium Clav [Augmentin] 875 mg PO Q12H #10 tab Hydrocodone/APAP 7.5/325Mg [[place] 7.5/325Mg] 1 tab PO Q4HP PRN #30 tab PRN Reason: Pain Active and Home Medications: Medications: Augmentin 875 mg p.o. twice daily 5 more days, for possible infection of her breast wound and right hip wound, growing Acinetobacter Tylenol 650 mg every 6 hours as needed mild pain [place] 7.5/325 one every 4 hours as needed moderate to severe pain Albuterol nebulizers every 2 hours as needed Arnica gel 1 dose topically as needed pain Dulcolax suppository 10 mg q. 2-3 days per rectum as needed constipation Tums 500 mg every 6 hours as needed Trusopt 2% eyedrops 1 drop OU twice daily Heparin 5000 units subcu every 12 hours until fully ambulatory Lactobacillus 1 cap daily Milk of magnesia 30 mL twice daily as needed Robaxin 750 mg every 6 hours as needed muscle spasms Zofran 4 mg sublingual every 4 hours as needed Aiken MiraLAX 17 g p.o. daily as needed constipation Senna 2 tabs p.o. nightly as needed constipation Silver self with Diazine applied to the breast and the hip open wounds, daily, until healed Throat lozenges as needed Previous home Medications Dorzolamide 2% Ophth Drops [Trusopt 2% Ophth Drops] 1 gtt OU BID 03/08/17 [ History Confirmed 03/08/17 Last Taken Unknown] Medical - DS: Hosp Hospital course: March 08, 2017: History of present illness: Ms. Renee is a 76 year old Female who does not like to go to the doctor, presents to the ER today after being fallen down and being on the floor for 3 days. The patient notes 3 days ago she let her dog out, and when closing the door after letting him back in, she turned and then fell, she had a bunch of keys and she supposedly landed on that and the ground. She has had right hip pain since then and has not been able to get up, pain is moderate to severe, sharp, worse with activity, better with rest, more or less stable since incident. The patient son who had tried calling her eventually called the neighbour who then called 911. The patient denies any prodromal symptoms, no cp, sob, palpitations, dizziness, altered sensorium, altered smell, change in vision or headaches. She notes she had had multiple falls in the past 22 over last 5 yrs but has not had this checked out. She notes she has not lost conciousness or never felt dizzy during these spells. The patient son notes that sometimes when she tries to move her head too fast she may get dizzy. The patient does not follow up wit [facility] physician and does not take any medication except for her open angle glaucoma. The patient had a bad surgical outcome in 2002? with Dr Avila for her carpal tunnel, and since then has not seen any other physician except he eye doctor The patient was covered with feces and urine in the ER nad needed to be cleaned The patient notes that she tried to move around as much as possible when on the floor but was not able t oget much help The patient has multiple moles, and skin breakthrough. The patient in the left under breast side had signifciant skin breaktrough, thickened mass approx 8x6 cms which has been there for a while as per the patient. Mar 08 patient seen examined, Dr Albrecht performed sx this afternoon, the patient labs look bet ter, she has sorness in the legs but no other complaints Dr Ramires looked at the breast mass and this looks highly suspicious for breast cancer, appears fairly advanced She would need surgery for same Dr Resendez will be here in AM. Patient otherwise has no other concerns. Feb 14 patient seen examined no acute concerns, left leg unable to use due to pain, CT pelvis was neg for left hip fracture s/p surgery, doing well as per ortho Left breast mass present, Dr Resendez to evaluate patient and decide on the care plan OT/PT to continue with therapy CT head done result pending. feb 15 pt seen examined, no complaints, besides pain ct head neg for acute pathology ck improving, off IVF tolearting oral well patient usg breast reivewed surgery plans for core biopsy. rightg breast swab growing gram neg, on IV ABX, awaiting sensitivities feb 16 "I feel almost human again." R hip fracture pain is controlled. Still has some L leg soft tissue pain d/t being down Req'd O2 p sedation for breast bx yesterday. Continuing to wean. Breast wound growing Acinetobacter lwoffii C diff is negative More open to discussing possibility of cancer treatment. She states she has had mistrust in the medical system since her carpal tunnel release in 2007 left her with bilateral hand numbness. Feb 17 Her left thigh (not the fractured hip) pain has improved. Her son is concerned that she may have an occult fracture. It no longer hurts to the touch. She has been having loose bowel movements after being started on laxatives. She attributed her loose bowel movements to her heparin injections and has been refusing them, but after discussing her risk of clots with probable cancer and immobility with hip fracture, she is now agreeable to receiving DVT prophylaxis. Left hip x-ray has been ordered to evaluate for hip fracture. If this is negative, will DC Carranza. If loose stools do not resolve with holding bowel regimen, will order C. difficile as she has been on antibiotics. ROS: no fever or cp March 13: -This patient was admitted after a fall at home. She was diagnosed with a right hip fracture, and underwent ORIF with Dr. Albrecht. The hip appears to be healing well. She will need ongoing physical and occupational therapies. -The patient also laid on the ground for quite some time, and developed rhabdomyolysis and acute kidney injury. She was given IV fluids, and this is improved. -The patient also was discovered to have a right ulcerating breast mass, and underwent breast biopsy with Dr. Resendez. Pathology is still pending, but it is likely she has breast cancer with metastasis at least 2 a right axillary lymph nodes. The patient has not decided yet if she would accept treatment, but her son is encouraging her to get the diagnosis and review all of her treatment options. -She did have constipation postop, and was given medications for this. She then had one episode of loose stools, which have resolved. -Yesterday, she was complaining of significant left hip and leg pain, particularly if she tries to straight leg lift the left leg. Her son requested an x-ray, which was done, and did not show any fracture. The patient says because it is painful to stand on the left leg she has trouble following instructions for only toe-touch weightbearing with the right leg during physical therapy. She ordinarily lives alone, and her goal is to get strong enough to go home. Otherwise, today, she denies fever chills, headaches or dizziness, chest pain or palpitations, shortness of breath, abdominal pain, nausea or vomiting, dysuria. On exam, she is a well-developed well-nourished female, but does appear a little confused at times. Neck is supple without obvious lymphadenopathy or JVD. Cardiac exam shows regular rate and rhythm. Right breast: The inferior part of the breast is very firm. There is significant ulceration at the breast crease, with minimal serosanguineous drainage. Lungs are clear to auscultation. Abdomen is soft and nontender. Extremities: Her right hip incision is clean and dry. There is another wound just proximal to that with a scab and a small surrounding area of cellulitis. That appears to be an abrasion from her fall. Left hip shows no significant swelling. She has full range of motion at the hip without significant pain, but does report significant pain if she tries to straight leg lift on that side. Neurologic exam: The patient is awake and alert, but does seem a bit forgetful. She is otherwise calm and cooperative, and exam is grossly nonfocal. A/P Narrative: #1. Right Hip Fracture: s/p ORIF on 03/[address] Albrecht. management per ortho. PT/OT following. Will need SNF on DC. #2. Rhabdomyolysis, resolved: CK improved, d/c'd IVF, tolerating orals well. #3. SIRS syndrome: low grade temp, leukocytosis on admit. The patient did have an open wound from her breast mass, and as well as a right hip abrasion. Wound is grew growing Acinetobacter, which may or may not be causing infection. This was pansensitive, so she will be changed to oral Augmentin today for the next 5 days. #4. L thigh pain: suspect this related to her resolving rhabdo rather than fx. L hip xray did not show any obvious fracture. She may need follow-up with her orthopedic surgeon. #5. Loose stools: DC scheduled bowel meds. #6. Left Breast Mass: going on for few years? seen by Dr Mal Hill following. Breast bx done 03/[address] D/W Dr. Resendez 03/11. BX will likely take 48 hours to result. -We are still awaiting pathology. She will need to follow-up with Dr. Resendez or Dr. Ramires as an outpatient, to review findings. I reviewed with her that she most certainly has metastatic breast cancer, and should strongly consider following up with an oncologist to review all of her possible treatment options. #7. Recurrent Fall: Ct head is neg with the patient reports she has fallen on and off over the years, and does not consider it all that abnormal. Hopefully with some physical therapy she will be at lower risk for falls. #8. DVT: hep sq. Has been intermittently refusing, but now will accept. #9. DNR as per pt wishes, son in the room during this conversation per Dr. Kohli's notes. #10. Disposition: Transfer to skilled rehab for hip rehab. -Follow-up with general surgery regarding her breast mass. -be sure she is established with a primary care physician to help manage her conditions. Discharge diagnosis: Right hip fracture. Rhabdomyolysis after fall. Right breast mass. Open w - Time Spent with Patient Total time spent providing and/or coordinating discharge services: Greater than 30 minutes Medical - DS: Exam - Constitutional Vitals: Vital Signs Temp Pulse Pulse Resp BP BP Pulse Ox 03/13/17 07:17 86 93 03/13/17 07:05 96.8 F L 20 145/79 96 03/13/17 04:00 97.4 F 84 20 131/66 92 03/12/17 23:45 98.0 F 89 20 139/71 93 03/12/17 19:46 98.1 F 96 H 20 154/72 93 12/17/17 15:58 97.6 F 89 16 142/74 91 03/12/17 12:00 97.2 F 92 H 16 109/57 90 Intake and Output 03/12/17 03/13/17 03/13/17 21:59 05:59 13:59 Intake Total 800 / 800 400 / 400 Output Total 1200 / 1200 Balance -400 / -400 398 / 398 -1 / -1 Intake: Oral 800 / 800 400 / 400 Output: Urine Catheter Amount 1200 / 1200 # of times incontinent of urine Other: # Bowel Movements 1 1 Weight 163 lb 8 oz Medical - DS: Data Labs on day of discharge: Labs from last 24 hours 03/13/17 03/13/17 03/13/17 04:07 04:07 04:07 WBC RBC Hgb Hct MCV MCH MCHC RDW Plt Count MPV Gran % Lymph % (Auto) [place] % (Auto) Eos % (Auto) Baso % (Auto) Gran # Lymph # (Auto) [place] # (Auto) Eos # (Auto) Baso # (Auto) PT 13.4 INR 1.0 Sodium 137 Potassium 4.0 Chloride 95 L Carbon Dioxide 29 Anion Gap 13.0 BUN 16 Creatinine 0.6 GFR Calculation 87 Glucose 115 H Uric Acid 4.0 Calcium 9.3 Phosphorus 3.2 Magnesium 1.9 Total Bilirubin 0.3 Direct Bilirubin < 0.2 GGT 15 AST 19 ALT 19 Alkaline Phosphatase 58 Lactate Dehydrogenase 183 Total Creatine Kinase 47 Total Protein 6.3 Albumin 3.4 Globulin 2.9 Albumin/Globulin Ratio 1.2 Triglycerides 120 03/13/17 04:07 WBC 6.3 RBC 4.04 Hgb 12.6 Hct 37.1 MCV 91.7 MCH 31.1 MCHC 33.9 RDW 12.6 Plt Count 264 MPV 8.3 Gran % 61.1 Lymph % (Auto) 21.2 [place] % (Auto) 12.9 H Eos % (Auto) 4.4 Baso % (Auto) 0.4 Gran # 3.9 Lymph # (Auto) 1.3 L [place] # (Auto) 0.8 Eos # (Auto) 0.3 Baso # (Auto) 0 PT INR Sodium Potassium Chloride Carbon Dioxide Anion Gap BUN Creatinine GFR Calculation Glucose Uric Acid Calcium Phosphorus Magnesium Total Bilirubin Direct Bilirubin GGT AST ALT Alkaline Phosphatase Lactate Dehydrogenase Total Creatine Kinase Total Protein Albumin Globulin Albumin/Globulin Ratio Triglycerides March 13: Right hip x-ray from March 12 reported no fractures. Also noted was ORIF of the right hip subcapital fracture which is anatomically aligned. March 09: Breast ultrasound: IMPRESSION: 5 cm hypoechoic mass in the 5:00 position corresponding to the ulcerating palpable lump. It is suspicious for invasive ductal carcinoma. Second 1.3 cm mass in the 3:00 medial region which is suspicious for a second focus of invasive ductal carcinoma. 4 cm infiltrating lymph node in the right axilla is almost certainly metastatic adenopathy. Head CT: IMPRESSION: Mild atrophy and moderate chronic ischemic changes deep cerebral white matter. There is no intracerebral hemorrhage or other acute posttraumatic change March 08: Wounds Gram stain and culture, right breast: Grew Acinetobacter wolffii, sensitive to ampicillin, Cipro, Bactrim. And Haemophilus parainfluenza, which should be sensitive to ampicillin.. Next Blood cultures are negative so far. March 07: EKG: Showed MAT at a rate of 125. Left axis deviation. Medical - DS: A/P - Patient/Caregiver Discharge Instructions Activity: as per physical therapy Diet: Regular Diet Prescriptions: Amoxicillin/Potassium Clav [Augmentin] 875 mg PO Q12H #10 tab Hydrocodone/APAP 7.5/325Mg [[place] 7.5/325Mg] 1 tab PO Q4HP PRN #30 tab PRN Reason: Pain Other Amb Orders: Aspiration Precautions Location: Determined By Patient Fall Risk Location: Determined By Patient OT Discharge Order Location: Determined By Patient Physical Therapy at Discharge - General Location: Determined By Patient Wound Care/Dressings Location: Determined By Patient - Follow up Plan Follow up with: Haydee Resendez MD [Physician] - 03/16/17 2:45 pm Fabio Posada PA-C [Physician [employer]] - 03/21/17 10:40 am Disposition: Xfer SNF Prognosis: Good Rehab Potential: Good I certify that the patient requires SNF services: Yes Medical - DS: Qual - VTE Deep Vein Thrombosis/Pulmonary Embolism Present on Admission: No
--- NOTE | 2017-03-14 13:16 | Surgical Pathology Report ---
HISTOLOGY SPECIMEN MICROSCOPIC DIAGNOSIS SPECIMEN A - BREAST, RIGHT MASS, ULTRASOUND-GUIDED NEEDLE CORE BIOPSY: -- INVASIVE DUCTAL CARCINOMA. - SHIRLEY SCORE: 8/9 (TUBULES - 3, NUCLEI - 3, MITOSES - 2). - SHIRLEY GRADE: GRADE 3 (POORLY-DIFFERENTIATED). - IN SITU COMPONENT: NOT IDENTIFIED. - LYMPH/VASCULAR INVASION: NOT IDENTIFIED. - MICROCALCIFICATIONS: NOT IDENTIFIED. - BREAST CANCER PROGNOSTIC PROFILE: - ESTROGEN RECEPTOR: POSITIVE (STRONG INTENSITY, 75-100%). - PROGESTERONE RECEPTOR: POSITIVE (INTERMEDIATE INTENSITIY, 10-25%). - HER2/TERRELL: NEGATIVE FOR OVEREXPRESSION BY IMMUNOHISTOCHEMISTRY. - KI-67 PROLIFERATION: INCREASED (20-30%). SPECIMEN B - LYMPH NODE, RIGHT AXILLA, ULTRASOUND-GUIDED NEEDLE CORE BIOPSY: -- MINUTE FRAGMENTS OF UNREMARKABLE SKELETAL MUSCLE AND FIBROCOLLAGENOUS SOFT TISSUE. -- NO LYMPHOID TISSUE OR MALIGNANCY IDENTIFIED. (SEH:adj) MICROSCOPIC DESCRIPTION The antibody vendor is [employer]; it is an Affinity-isolated rabbit antibody (DAKO C-erB-2 oncoprotein). Method used is [employer] Visualization System and it is FDA approved. 3 + positive and negative external controls, negative internal controls are included on each slide. The specimen is fixed in neutral buffered formalin. Tru2Alo performed on: BLOCK Adequacy of specimen for interpretation: YES Percentage of invasive tumor cells exhibiting complete membrane staining: <<10% Uniformity of staining: NOT APPLICABLE Homogeneous dark circumferential pattern: NOT APPLICABLE Tissue fixation time: between 6 and 72 hours. Some of the tests reported here may not have been cleared or approved by the U.S. Food and Drug Administration (FDA). However, the FDA has determined that such clearance or approval is not necessary. Pursuant to the requirements of CLIA, this laboratory has established and verified the accuracy and precision of all tests, and additional information about these tests is available upon request. All technical controls are adequate. GROSS DESCRIPTION Specimen A: Received in formalin labeled site A and further designated as right breast mass, are four cores of white-lawrence tissue ranging in size from 1.2 cm up to 2.5 cm in length and 0.1 cm in diameter. Total formalin fixation time is between six and 72 hours. Totally submitted in one cassette. Specimen B: Received in formalin labeled site B and further designated as right axillary node, are multiple wispy fragments of pink-lawrence tissue with the largest fragment measuring 0.2 by less than 0.1 cm in greatest dimension. There are multiple other less than 0.1 cm fragments. The specimen is filtered and totally submitted in one cassette. (KWG:adj) Electronically Signed by: Eleni Arriaga D.O.
== END 2017-03-13 13:25 | DRG 481 ==
LOC: ED 20:31 → SUATTDRO 03-08 00:42 → MEDSUR 03-08 00:42
PROVIDERS: ADMIT Internal Medicine; ATTEND Internal Medicine

== ENCOUNTER 2017-03-22 18:03 | Inpatient (IN) ==
[2017-03-22] MEDS ORDERED: IOPAMIDOL 100 ML BOTTLE IJ ONE (18:04)
[2017-03-22] MEDS ORDERED: 0.9 % SODIUM CHLORIDE 1,000 ML IV ONE (18:21)
[2017-03-22] MEDS ORDERED: IPRATROPIUM/ALBUTEROL 3 ML AMPUL.NEB NEB ONE (18:35)
[2017-03-22 19:30] LABS: Basophils # (Auto) 0 K/mcL (0.0-0.3); Basophils % (Auto) 0.1 % (0.0-2.0); Eosinophils # (Auto) 0 K/mcL (0.0-0.7); Eosinophils % (Auto) 0 % (0.0-7.0); Granulocytes % (Auto) 89.3 % (38.0-78.0); Lymphocytes # (Auto) 0.4 K/mcL (1.5-4.8); Lymphocytes % (Auto) 3.1 % (15.5-49.0); Mean Cell Volume 91.4 fL (80.0-100.0); Mean Corpuscular HGB Conc 33.9 g/dL (31.0-36.0); Monocytes # (Auto) 1.1 K/mcL (0.1-0.9); Monocytes % (Auto) 7.5 % (1.0-12.0); Platelet Count 266 K/mcL (140-440); RBC 3.86 M/mcL (4.00-5.20); Red Cell Distribution Width 12.9 % (11.5-14.5)
[2017-03-22 19:38] LABS: ALT/SGPT 29 U/l (0-40); Albumin/Globulin Ratio 1.4 (1.0-2.3); Alkaline Phosphatase 79 U/L (39-117); Blood Urea Nitrogen 11 mg/dl (8-23)
--- NOTE | 2017-03-22 19:51 | Emergency Department Note ---
Fever HPI - General Chief Complaint: Fever Stated Complaint: fever, low O2 sat Time Seen by Provider: 03/22/17 18:23 Source: patient, EMS Mode of arrival: EMS Limitations: no limitations - History of Present Illness HPI Narrative: 18-year-old female who was recently diagnosed with influenza B this morning comes back for increasing fever and hypoxia. She did get 2 doses of Tamiflu-1 here earlier this morning and 1 at the care home. She is now requiring oxygen at 4.5 L. I reviewed her previous visit here for hip surgery and rhabdomyolysis , recent visit with surgery for breast cancer new diagnosis, and visit this morning for influenza. - Related Data Home Medications Medication Instructions Recorded Confirmed Dorzolamide 2% Ophth Drops 1 gtt OU BID 03/08/17 03/22/17 [Trusopt 2% Ophth Drops] Ondansetron HCl [Zofran] 4 mg PO Q4H PRN 03/22/17 03/22/17 Previous Rx's Medication Instructions Recorded Acetaminophen [Tylenol] 650 mg PO Q6HP PRN tab 03/13/17 Albuterol Sulfate [Ventolin] 2.5 mg NEB Q2HP PRN ampul.neb 03/13/17 Amoxicillin/Potassium Clav 875 mg PO Q12H #10 tab 03/13/17 [Augmentin] Benzocaine/Menthol [Cepacol] 1 felipe PO PRN PRN felipe 03/13/17 Bisacodyl [Dulcolax] 10 mg IN Q2-3DAYS PRN supp.rect 03/13/17 Calcium Carbonate [Tums] 500 - 1,000 mg CHEWED Q6HP PRN 03/13/17 tab.chew Heparin 5,000 unit SQ Q12 vial 03/13/17 Hydrocodone/APAP 7.5/325Mg [[place] 1 tab PO Q4HP PRN #30 tab 03/13/17 7.5/325Mg] Lactobacillus [Culturelle] 1 cap PO DAILY cap 03/13/17 Magnesium Hydroxide [Milk of 30 ml PO BIDP PRN oral.susp 03/13/17 Magnesia] Methocarbamol [Robaxin] 750 mg PO Q6HP PRN tab 03/13/17 Polyethylene Glycol 3350 [Miralax] 17 gm PO DAILYP PRN packet 03/13/17 Sennosides [Senokot] 2 tab PO HSP PRN tab 03/13/17 Oseltamivir Phosphate [Tamiflu] 75 mg PO BID #10 cap 03/22/17 Allergies Allergy/AdvReac Type Severity Reaction Status Date / Time No Known Drug Allergies Allergy Verified 03/16/17 15:12 Review of Systems All systems ED: reviewed and negative except as stated. Fever PMH - Past Medical History Attestation: Yes: The following information was validated with the patient. Medical history: Reports: cancer (breast), hypertension (but no medication to treat with), other (glaucoma) Surgical history ED: Reports: appendectomy, cholecystectomy, hysterectomy, tonsillectomy - Social History smoking status: Never smoker Alcohol use: Reports: None Drug use: Reports: none Physical Exam No acute distress resting comfortably. Normocephalic atraumatic. Conjunctive are clear sclerae nonicteric. No nasal discharge or congestion. Oropharynx is pink and moist. Neck is supple without lymphadenopathy or thyromegaly. Heart is regular rate and rhythm no murmur appreciated. Lungs are clear to auscultation bilaterally without wheezes rales rhonchi -however she does have some overt dyspnea. She is wearing nasal cannula oxygen. Abdomen soft nontender nondistended. No pedal edema. +2 radial pulse. Alert oriented able to answer questions appropriately Limitations: no limitations Course Vital Signs Temperature 101.4 F H 03/22/17 18:03 Pulse Rate 108 H 03/22/17 18:03 Respiratory Rate 18 03/22/17 18:03 Blood Pressure 123/66 03/22/17 18:03 Pulse Oximetry (%) 97 03/22/17 18:03 Temperature 101.4 F H 03/22/17 18:03 Pulse Rate 97 H 03/22/17 20:35 Respiratory Rate 20 03/22/17 20:35 Blood Pressure 126/64 03/22/17 20:35 Pulse Oximetry (%) 93 03/22/17 20:35 Fever - Lab Data Lab results reviewed: Yes I reviewed the patient's lab results. Result diagrams: 03/22/17 18:47 03/22/17 18:47 Lab Results 03/22/17 03/22/17 03/22/17 Range/Units 18:47 18:47 18:47 WBC 14.2 H (4.5-11.0) K/mcL RBC 3.86 L (4.00-5.20) M/mcL Hgb 12.0 (12.0-15.0) g/dL Hct 35.3 L (36.0-48.0) % MCV 91.4 (80.0-100.0) fL MCH 31.0 (26.0-34.0) pg MCHC 33.9 (31.0-36.0) g/dL RDW 12.9 (11.5-14.5) % Plt Count 266 (140-440) K/mcL MPV 8.6 (7.4-10.4) fL Gran % 89.3 H (38.0-78.0) % Lymph % (Auto) 3.1 L (15.5-49.0) % [place] % (Auto) 7.5 (1.0-12.0) % Eos % (Auto) 0 (0.0-7.0) % Baso % (Auto) 0.1 (0.0-2.0) % Gran # 12.7 H (1.8-8.0) K/mcL Lymph # (Auto) 0.4 L (1.5-4.8) K/mcL [place] # (Auto) 1.1 H (0.1-0.9) K/mcL Eos # (Auto) 0 (0.0-0.7) K/mcL Baso # (Auto) 0 (0.0-0.3) K/mcL VBG Lactic Acid 1.5 (0.5-2.2) mmol/L Sodium 132 L (133-145) mmol/L Potassium 4.4 (3.3-5.1) mmol/L Chloride 93 L (96-108) mmol/L Carbon Dioxide 24 (22-30) mmol/L Anion Gap 15.0 (8-16) BUN 11 (8-23) mg/dl Creatinine 0.6 (0.6-1.1) mg/dl GFR Calculation 87 Glucose 127 H (70-105) mg/dL Calcium 8.7 (8.6-10.4) mg/dl Total Bilirubin 0.3 (0.0-1.0) mg/dL AST 34 (0-37) U/l ALT 29 (0-40) U/l Alkaline Phosphatase 79 (39-117) U/L Total Protein 6.8 (5.9-8.4) gm/dL Albumin 4.0 (3.2-5.2) gm/dL Globulin 2.8 (2.2-3.7) gm/dL Albumin/Globulin Ratio 1.4 (1.0-2.3) ABG shows pH 7.47 PCO2 35 PO2 80 on 4.5 L/min oxygen by nasal cannula - Radiology Data Radiology results reviewed: Yes I reviewed the patient's radiology results. Chest x-ray shows no acute cardiopulmonary disease-in fact it looks improved compared to 03/12/2017 CT scan of the chest with angiogram shows large left-sided breast cancer with metastasis to nodes. Bilateral lower lobe pneumonia. 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 She was requiring 4.5 L/min nasal cannula Reviewed previous visits including recent hip surgery and today's visit earlier with positive influenza. Laboratory showed leukocytosis. X-ray unrevealing but CT angiogram of the chest showed no thrombosis but did show left-sided breast cancer, large goiter and bilateral pneumonia . discussed scenario with Dr. Kohli, the hospitalist. He agreed to accept the patient Disposition: Xfer As Inpt ([facility]) Condition: Fair Referrals: Leonid Magallanes MD [Primary Care Provider] -
--- NOTE | 2017-03-22 21:04 | Internal Med History&Physical ---
Medical - H&P: HPI Patient information: Note initiated : 03/22/17 at 9:00 pm Service Date, if different from initiated Date: [] Patient: Josefa Renee a 76 y/o F admitted on for fever, low O2 sat. Chief Complaint: [] History of present illness: Ms. Renee is a 76 year old Female with h/o hip fracture, ca breast, recently discharged from this hospital to [place], presents today with complaints of ever, shotness of breath and cough. the patient notes that she has been having cough and not feeling well x 3-5 datys, decreased appetitie over 2 days, she also has noted some soreness in the throat with change in voice quality. The patient since yesterday is having shortness of breath and cough, Cough with yellowish sputum, having fevers, no chills. She was brought to the ER early today, was diagnosed with influenza type B, started on tamiflu and sent back to the [place]. The patient took one dose, not sure if got another, but her condition worsened, she continued to have fever , became more short of breath, with cough, and new hypoxia. She was sent again for evaluation. She admits to haveing some nasuea and vomiting, some headache, fatigue and maliaise. She denies any other symptom. In the ER she wass febrile, hypoxic, needing 4L oxygen to keep her sat > 90, she as also tachypenic, Her WBC was elevated, to 14, her ABG showed hypoxia. Her CXR was neg, given her hypoxia, and recent hip surgery with h/o cancer, CTA to r/o PE was done, which is prelimnary reported neg, but she has bilateral pneumona on the basilar region. She is being admitted to the hospital for further management. Patients son is present in the ER, patient is DNR code status She has newly diagnosed Ca breast with mets, CT shows significant axiallary mets , patietn was to see oncologist today, but this was postponed in light of influenza. All systems: reviewed and no additional remarkable complaints except as stated ( as per HPI) Medical - H&P: PMH Medical history: Medical History Influenza (Acute) Respiratory failure (Acute) Pneumonia (Acute) Rhabdomyolysis (Acute) Hip fracture (Acute) ca breat glaucoma Surgical history: hip fracture tonsillectomy Carpel tunnel syndrome. Family history: reviewed and not pertinent Social history: lives along usually, but pres[place]ly [place] no smoking no etoh no recreational drug use. Medical - H&P: Meds Home Medications Medication Instructions Recorded Confirmed Type Dorzolamide 2% Ophth Drops 1 gtt OU BID 03/08/17 03/22/17 History [Trusopt 2% Ophth Drops] Acetaminophen [Tylenol] 650 mg PO Q6HP PRN tab 03/13/17 03/22/17 Rx Albuterol Sulfate [Ventolin] 2.5 mg NEB Q2HP PRN ampul.neb 03/13/17 03/22/17 Rx Amoxicillin/Potassium Clav 875 mg PO Q12H #10 tab 03/13/17 03/22/17 Rx [Augmentin] Benzocaine/Menthol [Cepacol] 1 felipe PO PRN PRN felipe 03/13/17 03/22/17 Rx Bisacodyl [Dulcolax] 10 mg AZ Q2-3DAYS PRN supp.rect 03/13/17 03/22/17 Rx Calcium Carbonate [Tums] 500 - 1,000 mg CHEWED Q6HP PRN 03/13/17 03/22/17 Rx tab.chew Heparin 5,000 unit SQ Q12 vial 03/13/17 03/22/17 Rx Hydrocodone/APAP 7.5/325Mg [Hallock 1 tab PO Q4HP PRN #30 tab 03/13/17 03/22/17 Rx 7.5/325Mg] Lactobacillus [Culturelle] 1 cap PO DAILY cap 03/13/17 03/22/17 Rx Magnesium Hydroxide [Milk of 30 ml PO BIDP PRN oral.susp 03/13/17 03/22/17 Rx Magnesia] Methocarbamol [Robaxin] 750 mg PO Q6HP PRN tab 03/13/17 03/22/17 Rx Polyethylene Glycol 3350 [Miralax] 17 gm PO DAILYP PRN packet 03/13/17 Rx Sennosides [Senokot] 2 tab PO HSP PRN tab 03/13/17 03/22/17 Rx Ondansetron HCl [Zofran] 4 mg PO Q4H PRN 03/22/17 03/22/17 History Oseltamivir Phosphate [Tamiflu] 75 mg PO BID #10 cap 03/22/17 03/22/17 Rx Allergies Allergy/AdvReac Type Severity Reaction Status Date / Time No Known Drug Allergies Allergy Verified 03/16/17 15:12 Medical - H&P: Exam - Constitutional Vitals: Temp Pulse Resp BP Pulse Ox 101.4 F H 97 H 20 126/64 93 03/22/17 18:03 03/22/17 20:35 03/22/17 20:35 03/22/17 20:35 03/22/17 20:35 Exam: GENERAL: The patient is a well-developed, well-nourished in no apparent distress. Is alert and oriented x3. VITAL SIGNS: Reviewed and as noted elsewhere. HEENT: Head is normocephalic and atraumatic. Extraocular muscles are intact. Pupils are equal, round, and reactive to light. Nares appeared normal. Mouth appears any without lesions. Mucous membranes are dry NECK: Normal to inspection, chris enlarged goiter noted,, Supple, No lymphadenopathy LUNGS: Air entry equal on both sides, no wheezing, crackles or rhonchi noted. No accessory muscles of respiration HEART: Regular rate and rhythm normal, S1 and S2 heard, no Gallop, S3 or Rub Noted, No Gross murmur heard. ABDOMEN: Soft, nontender, and nondistended. Positive bowel sounds. No hepatosplenomegaly was noted. EXTREMITIES: No cyanosis, clubbing, rash, lesions or edema. NEUROLOGIC: Cranial nerves II through XII are grossly intact. Motor and Sensory System Grossly Intact PSYCHIATRIC: Normal affect, Normal Mood. Appropriate Behavior. SKIN: No jaundice, No rash noted. Medical - H&P: Reslt - Labs CBC & Chem 7: 03/22/17 18:47 03/22/17 18:47 Labs: Short CBC 03/22/17 Range/Units 18:47 WBC 14.2 H (4.5-11.0) K/mcL Hgb 12.0 (12.0-15.0) g/dL Hct 35.3 L (36.0-48.0) % Plt Count 266 (140-440) K/mcL BMP 03/22/17 18:47 Sodium 132 L Potassium 4.4 Chloride 93 L Carbon Dioxide 24 BUN 11 Creatinine 0.6 Glucose 127 H Calcium 8.7 Liver Function 03/22/17 Range/Units 18:47 Total Bilirubin 0.3 (0.0-1.0) mg/dL AST 34 (0-37) U/l ALT 29 (0-40) U/l Alkaline Phosphatase 79 (39-117) U/L Albumin 4.0 (3.2-5.2) gm/dL Medical - H&P: A/P - Narrative A/P Narrative: A/P Healthcare Associated pneumonia.: Treat with Vanco and cefepime for now, Sepsis: BP stable, lactate not elevated, IV fluids and monitor resp status closely on tele Influenza type b: On tamiflu 75mg bid x 5 days. Acute hypoxic Respiratory Failure: Due to pna/ flu, treat underlying condition, Oxygen via nasal canula, no e/o PE as per prelim CT report. Goiter: On CT to me it shows that its compressing the trachea, pt denies any stridor, tracheal diameter is 0.8-1cms. Will get USG thyroid, CA BREast: Supposed to see oncology, will ened to reschedule, Glaucoma: resume home meds Hip Fracture: DVT prophlaxis, pain management, OT/ PT treatment DVT hep sq, SCD REgular diet DNR code status.
[2017-03-22] MEDS ORDERED: NALOXONE HCL 0.4 MG/ML VIAL IV PRN (21:31)
[2017-03-22] MEDS ORDERED: VANCOMYCIN 1,000 MG in DEXTROSE 5% IN WATER 250 ML IV ONE (21:31)
[2017-03-22] MEDS ORDERED: ONDANSETRON 4 MG/2 ML VIAL IV PRN (21:31)
[2017-03-22] MEDS ORDERED: CALCIUM CARBONATE 500 MG TAB.CHEW CHEWED PRN (21:31)
[2017-03-22] MEDS ORDERED: ACETAMINOPHEN 325 MG TABLET PO PRN (21:31)
[2017-03-22] MEDS ORDERED: VANCOMYCIN PER PHARMACY IV SCH (21:31)
[2017-03-22] MEDS ORDERED: VANCOMYCIN 500 MG VIAL ONE (22:04)
[2017-03-22] MEDS: HEPARIN 5,000 UNIT/ML VIAL SQ SCH (22:39)
[2017-03-22] MEDS: FAMOTIDINE 20 MG TABLET PO SCH (22:45)
[2017-03-22] MEDS: OSELTAMIVIR PHOSPHATE 75 MG CAPSULE PO SCH (22:45)
[2017-03-22] MEDS: DORZOLAMIDE 2% OPHTH DROPS 10ML BOTTLE OU SCH (22:52)
[2017-03-22] MEDS: CEFEPIME 2 GM VIAL IV SCH (23:09)
[2017-03-23] MEDS: BENZOCAINE/MENTHOL 1 LOZENGE PO PRN ×2 (00:50→14:38)
[2017-03-23] MEDS: IPRATROPIUM/ALBUTEROL 3 ML AMPUL.NEB NEB SCH ×4 (00:50→19:26)
[2017-03-23] MEDS: HYDROcodone/APAP 5/325MG TABLET PO PRN ×4 (01:11→19:58)
[2017-03-23] MEDS: CEFEPIME 2 GM VIAL IV SCH ×3 (05:43→21:59)
[2017-03-23 06:00] LABS: Mean Cell Volume 91.3 fL (80.0-100.0); Mean Corpuscular HGB Conc 33.7 g/dL (31.0-36.0); Mean Corpuscular Hemoglobin 30.7 pg (26.0-34.0); Platelet Count 274 K/mcL (140-440); RBC 3.77 M/mcL (4.00-5.20); Red Cell Distribution Width 12.8 % (11.5-14.5)
[2017-03-23 06:07] LABS: ALT/SGPT 27 U/l (0-40); Albumin 3.5 gm/dL (3.2-5.2); Albumin/Globulin Ratio 1.4 (1.0-2.3); Alkaline Phosphatase 71 U/L (39-117); Bilirubin,Direct < 0.2 mg/dL (0.0-0.3); Blood Urea Nitrogen 12 mg/dl (8-23); Gamma Glutamyl Transpeptidase 24 U/L (5-36); Magnesium 1.7 mg/dL (1.6-2.5); Uric Acid 3.8 mg/dL (2.5-8.0)
[2017-03-23 07:01] LABS: Band Neutrophils % 32 % (0-10); Lymphocytes % 6 % (15-49); Monocytes % (Manual) 6 % (1-12); Platelet Estimate NORMAL (NORMAL); RBC Morphology NORMAL (NORMAL); Segmented Neutrophils % 55 % (38-78)
--- NOTE | 2017-03-23 08:16 | XRay Report ---
HISTORY: Reason for Exam:dyspnea and breast cancer FINDINGS: There is bilateral pneumonia with the greatest involvement in left lower lobe behind the left heart border. A 1.4 cm nodular density is seen overlying the left apex. This was not present on 03/07/17 and is probably a superimposed artifact. Patient has a very large thyroid which is displacing the trachea to the right side and causing some narrowing of the lumen. The heart size is within upper limits of normal. No pleural effusion is present. IMPRESSION: New onset bilateral pneumonia Enlarged thyroid causing narrowing of the trachea Interpreted and Authenticated by: Eber Quinones 03/23/17
--- NOTE | 2017-03-23 08:34 | Cat Scan Report ---
CLINICAL INFORMATION: Reason for Exam:resp failure, hypoxia, influenza COMPARISON: None TECHNIQUE: Axial images obtained through the chest. Intravenous contrast administration was administered, and scanning was performed during pulmonary arterial phase. Sagittally and coronally reformatted images were obtained. MIP reformatted images. FINDINGS: The pulmonary arteries are normal with no intraluminal filling defects. The aorta is normal in caliber with no aneurysm or dissection. There are few scattered calcified plaques in the aorta as well as the distal left main coronary artery extending into the LAD. The heart is borderline enlarged. There are patchy alveolar infiltrates in both lungs with the greatest consolidation in the left lower lobe. There is also involvement in the inferior segment of lingula along with posterior and medial basal segments of the right lower lobe. No pleural or pericardial effusion are present. There is no evidence of a pulmonary mass. There is thickening of the interlobular septa, most apparent in the left upper lobe and superior segment of lingula. The 1.7 cm nodule seen at the left apex on the preceding chest x-ray is not present within the lung. This density may correlate with the dense calcification seen in the left lobe of the thyroid There is a large tumor in the right breast which measures 6.3 cm in transverse dimension. This extends through the skin anteriorly. Posteriorly extends to the chest wall but is not invading the ribs. There are multiple metastatic lymph nodes in the right axilla which measure up to 2.6 x 3.8 cm. There are no abnormally enlarged lymph nodes in the mediastinum or eklsea. No lytic or blastic bone metastasis are detected. There is a very large mass replacing both lobes of the thyroid. The overall size of the thyroid including both left and right lobes is 9.7 cm in transverse dimension and 5.8 cm in AP dimension. The superior aspect of the thyroid is outside of the field of view. The thyroid does extend substernally. This is displacing and compressing the trachea. At the level of greatest narrowing the lumen of the trachea measures 5.6 x 8.4 cm. Below the thyroid and above the rodrigo, the trachea measures 9.0 x 9.8 cm. Within the left lobe of the thyroid there is a dense 1.5 cm calcification. This has benign features and is consistent with a degenerating adenoma. IMPRESSION: Bilateral pneumonia with the greatest involvement in the left lower lobe. Thickening of the intralobular septa in the left upper lobe and lingula. The asymmetry would be more suggestive of lymphangitic spread of tumor rather than interstitial pulmonary edema from congestive heart failure Borderline cardiomegaly with atherosclerotic coronary artery disease. Large right-sided breast cancer with metastasis to the right axilla Large thyroid causing extrinsic compression and narrowing of the trachea. This is most likely a goiter. Metastasis from breast cancer would be extremely rare. A primary thyroid carcinoma is possible but much less likely than a goiter. Dr. Lopez was called with the results Interpreted and Authenticated by: Eber Quinones 03/23/17
[2017-03-23] MEDS: LACTOBACILLUS 1 CAPSULE PO SCH (09:21)
[2017-03-23] MEDS: FAMOTIDINE 20 MG TABLET PO SCH ×2 (09:21→19:58)
[2017-03-23] MEDS: OSELTAMIVIR PHOSPHATE 75 MG CAPSULE PO SCH ×2 (09:21→19:58)
[2017-03-23] MEDS: DORZOLAMIDE 2% OPHTH DROPS 10ML BOTTLE OU SCH ×2 (09:22→20:34)
[2017-03-23] MEDS: HEPARIN 5,000 UNIT/ML VIAL SQ SCH ×2 (09:22→19:58)
[2017-03-23] MEDS: VANCOMYCIN 1,000 MG in DEXTROSE 5% IN WATER 250 ML IV SCH (09:22)
[2017-03-23 10:40] LABS: T4 (Thyroxine) 5.9 ug/dl (5.0-12.0)
--- NOTE | 2017-03-23 10:53 | Ultrasound Report ---
History: Enlarged thyroid which compresses the trachea Findings: There is massive enlargement of both lobes of the thyroid. The right lobe is 3.9 x 4.3 x 6.6 cm and the left measures 4.7 x 5.1 x 6.3 cm. The thyroid extends below the sternum. The isthmus is 2.6 cm in width. Both lobes of the thyroid are very heterogeneous. No normal thyroid tissue is seen. There is a complex cyst in the upper third of the left lobe which measures 1.9 x 2.6 cm. There are also calcifications in the left lobe. Impression: Massively enlarged thyroid. Statistically this is most likely a goiter. Metastasis from breast cancer be extremely rare. Diffuse involvement of both lobes of the thyroid by a thyroid carcinoma would also be atypical. This does not have the appearance of a lymphoma. Interpreted and Authenticated by: Eber Quinones 03/23/17
--- NOTE | 2017-03-23 11:28 | Internal Med Progress Note ---
Medical - PN: Subj Patient information: Note initiated : 03/23/17 at 11:26 am Service Date, if different from initiated Date: [] Patient: Josefa Renee 76 y/o F admitted on 03/22/17 for fever, low O2 sat. Chief Complaint: [] Interval history: Ms. Renee is a 76 year old Female with h/o hip fracture, ca breast, recently discharged from this hospital to [place], presents today with complaints of ever, shotness of breath and cough. the patient notes that she has been having cough and not feeling well x 3-5 datys, decreased appetitie over 2 days, she also has noted some soreness in the throat with change in voice quality. The patient since yesterday is having shortness of breath and cough, Cough with yellowish sputum, having fevers, no chills. She was brought to the ER early today, was diagnosed with influenza type B, started on tamiflu and sent back to the [place]. The patient took one dose, not sure if got another, but her condition worsened, she continued to have fever , became more short of breath, with cough, and new hypoxia. She was sent again for evaluation. She admits to haveing some nasuea and vomiting, some headache, fatigue and maliaise. She denies any other symptom. In the ER she wass febrile, hypoxic, needing 4L oxygen to keep her sat > 90, she as also tachypenic, Her WBC was elevated, to 14, her ABG showed hypoxia. Her CXR was neg, given her hypoxia, and recent hip surgery with h/o cancer, CTA to r/o PE was done, which is prelimnary reported neg, but she has bilateral pneumona on the basilar region. She is being admitted to the hospital for further management. Patients son is present in the ER, patient is DNR code status She has newly diagnosed Ca breast with mets, CT shows significant axiallary mets , patietn was to see oncologist today, but this was postponed in light of influenza. Mar 23 Patient seen examined,she still has cough, and shortness of breath her wbc is better slightly Her CT scan and THyrroid usg reviewed plan of care reviewed with patient and her son. Will try to consult ENT on evalution of large thyroid mass/ goiter microbiology pending. Pertinent ROS: Denies headache, dizziness Denies chest pain, palpitations cough and sob present. Denies abdominal pain, nausea or vomiting. - Constitutional Vitals: Vital Signs Temp Pulse Resp BP Pulse Ox 99.1 F H 117 H 24 H 110/59 94 03/23/17 08:00 03/23/17 08:00 03/23/17 08:00 03/23/17 08:00 03/23/17 08:00 Period Temp Pulse Resp BP Sys/Weinstein Pulse Ox Last 24 Hr 99.1 F-101.6 F 64-117 18-27 103-146/48-97 88-100 Intake and Output 03/22/17 03/23/17 03/23/17 21:59 05:59 13:59 Intake Total 1000 / 1000 360 / 360 Output Total 0 / 0 Balance 1000 / 1000 360 / 360 Weight 165 lb 8 oz Intake & Output: Intake & Output 03/22/17 03/23/17 03/23/17 21:59 05:59 13:59 Intake Total 1000 / 1000 360 / 360 Output Total 0 / 0 Balance 1000 / 1000 360 / 360 Weight 165 lb 8 oz Intake: IV 1000 / 1000 Sodium Chloride 0.9% 1,000 ml @ 1000 / 1000 Wide Open IV BOLUS ONE Rx#: [id number] Oral 360 / 360 Output: Void Amount 0 / 0 Other: # Voids 0 Exam: Constitutional; Afebrile, cooperative, alert, not in distress. Eyes- No icterus, , No periorbital swelling Ears- Ext ear normal, hearing normal to conversation. Neck- Midline trachea, supple Respiratory system: Air Entry equal on both sides, bilbasilar bronchial breath sounds, chris basilar mild crackles. CVS- Rate rhythm regular, S1,S2 heard, no gallop, no rub. Abdomen- Soft nontender abdomen, no organomegaly, no tenderness, no guarding or rigidity, FURNACE TENDER- AOOx3, moving all extremities, no gross focal deficit noted. Medical - PN: Obj Da - Labs CBC & Chem 7: 03/23/17 04:00 03/23/17 04:00 Labs: Abnormal Lab Results 03/23/17 03/23/17 03/23/17 04:00 04:00 04:00 WBC 13.5 H RBC 3.77 L Hgb 11.6 L Hct 34.4 L Gran % Lymph % (Auto) Gran # Lymph # (Auto) Howard # (Auto) Band Neutrophils % 32 H Lymphocytes % 6 L Sodium 130 L Chloride 94 L Glucose 127 H Calcium 8.4 L TSH 0.17 L 03/22/17 03/22/17 18:47 18:47 WBC 14.2 H RBC 3.86 L Hgb Hct 35.3 L Gran % 89.3 H Lymph % (Auto) 3.1 L Gran # 12.7 H Lymph # (Auto) 0.4 L Howard # (Auto) 1.1 H Band Neutrophils % Lymphocytes % Sodium 132 L Chloride 93 L Glucose 127 H Calcium TSH Meds: Medications Acetaminophen (Tylenol) 650 mg PO Q6HP PRN PRN Reason: PAIN/FEVER > 101 Last Admin: 03/23/17 00:49 Dose: 650 mg Hydrocodone Bitart/Acetaminophen ([place] 5/325mg) 1 tab PO Q4HP PRN PRN Reason: PAIN LEVEL 3-6 Last Admin: 03/23/17 05:42 Dose: 1 tab Albuterol/Ipratropium (Duoneb) 3 ml NEB Q6HRT [facility] Last Admin: 03/23/17 07:18 Dose: 3 ml Calcium Carbonate/Glycine (Tums) 500 - 1,000 mg CHEWED Q6HP PRN PRN Reason: Dyspepsia Cefepime HCl (Maxipime) 2 gm IV Q8H [facility] Last Admin: 03/23/17 05:43 Dose: 2 gm Dorzolamide HCl (Trusopt 2% Ophth Drops) 1 gtt OU BID [facility] Last Admin: 03/23/17 09:22 Dose: Not Given Famotidine (Pepcid) 20 mg PO BID [facility] Last Admin: 03/23/17 09:21 Dose: 20 mg Heparin Sodium (Porcine) (Heparin) 5,000 unit SQ Q12 [facility] Last Admin: 03/23/17 09:22 Dose: 5,000 unit Vancomycin HCl 1,000 mg/ (Dextrose) 250 mls @ 250 mls/hr IV Q24H [facility] Last Admin: 03/23/17 09:22 Dose: 250 mls/hr Lactobacillus Rhamnosus (Culturelle) 1 cap PO DAILY [facility] Last Admin: 03/23/17 09:21 Dose: 1 cap Methocarbamol (Robaxin) 750 mg PO Q6HP PRN PRN Reason: Muscle Spasm Naloxone HCl (Narcan) 0.1 mg IV Q2MIN PRN PRN Reason: Opiate Reversal Ondansetron HCl (Zofran) 4 mg IV Q4HP PRN PRN Reason: Nausea And Vomiting Oseltamivir Phosphate (Tamiflu) 75 mg PO BID [facility] Stop: 03/27/17 20:59 Last Admin: 03/23/17 09:21 Dose: 75 mg Throat Lozenges (Cepacol) 1 lozenge PO PRN PRN PRN Reason: Sore Throat Last Admin: 03/23/17 00:50 Dose: 1 lozenge Vancomycin HCl (Vancomycin Per Pharmacy) 1 order IV [facility] [place] Medical - PN: A/P - Time Spent With Patient Total time spent is greater than 50% in coordination of care (as documented) at patient's floor/unit and/or counseling patient: - Narrative A/P Narrative: A/P Healthcare Associated pneumonia.: Treat with Vanco and cefepime for now, Pt still has significant cough and shortness of breath, Sepsis: BP stable, lactate not elevated, IV fluids and monitor resp status closely on tele, wbc mildly trending down today, monitor closely. Influenza type b: On tamiflu 75mg bid Acute hypoxic Respiratory Failure: Due to pna/ flu, treat underlying condition, Oxygen via nasal canula, no e/o PE as per prelim CT report. COnsider bipap if patient worsens. Goiter: On CT to me it shows that its compressing the trachea, pt denies any stridor, tracheal diameter is 0.8-1cms. USG reviewed, will need debulking of mass, tried calling Dr Carbone, ENT, will call again later. CA BREast: Supposed to see oncology, will need to reschedule, Glaucoma: resume home meds Hip Fracture: DVT prophlaxis, pain management, OT/ PT treatment DVT hep sq, SCD REgular diet DNR code status. Medical - PN: Qual - VTE Deep Vein Thrombosis/Pulmonary Embolism Present on Admission: No
[2017-03-23] MEDS: METHOCARBAMOL 750 MG TABLET PO PRN ×2 (15:04→21:59)
[2017-03-24] MEDS: IPRATROPIUM/ALBUTEROL 3 ML AMPUL.NEB NEB SCH ×4 (00:33→19:02)
[2017-03-24] MEDS: HYDROcodone/APAP 5/325MG TABLET PO PRN ×4 (00:58→20:10)
[2017-03-24 05:09] LABS: Basophils # (Auto) 0 K/mcL (0.0-0.3); Basophils % (Auto) 0.1 % (0.0-2.0); Eosinophils # (Auto) 0 K/mcL (0.0-0.7); Eosinophils % (Auto) 0 % (0.0-7.0); Granulocytes % (Auto) 75.3 % (38.0-78.0); Lymphocytes # (Auto) 1.1 K/mcL (1.5-4.8); Lymphocytes % (Auto) 14.1 % (15.5-49.0); Mean Cell Volume 91.8 fL (80.0-100.0); Mean Corpuscular HGB Conc 33.6 g/dL (31.0-36.0); Mean Corpuscular Hemoglobin 30.8 pg (26.0-34.0); Monocytes # (Auto) 0.8 K/mcL (0.1-0.9); Monocytes % (Auto) 10.5 % (1.0-12.0); Platelet Count 237 K/mcL (140-440); RBC 3.56 M/mcL (4.00-5.20)
[2017-03-24 05:14] LABS: ALT/SGPT 18 U/l (0-40); Alkaline Phosphatase 64 U/L (39-117); Bilirubin,Direct < 0.2 mg/dL (0.0-0.3); Blood Urea Nitrogen 17 mg/dl (8-23); Gamma Glutamyl Transpeptidase 22 U/L (5-36); Magnesium 1.9 mg/dL (1.6-2.5)
[2017-03-24] MEDS: CEFEPIME 2 GM VIAL IV SCH ×3 (06:03→21:51)
[2017-03-24] MEDS: DORZOLAMIDE 2% OPHTH DROPS 10ML BOTTLE OU SCH ×2 (08:16→21:43)
[2017-03-24] MEDS: LACTOBACILLUS 1 CAPSULE PO SCH (08:16)
[2017-03-24] MEDS: FAMOTIDINE 20 MG TABLET PO SCH ×2 (08:16→20:11)
[2017-03-24] MEDS: OSELTAMIVIR PHOSPHATE 75 MG CAPSULE PO SCH ×2 (08:16→20:11)
[2017-03-24] MEDS: HEPARIN 5,000 UNIT/ML VIAL SQ SCH ×2 (08:17→20:10)
[2017-03-24] MEDS: VANCOMYCIN 1,000 MG in DEXTROSE 5% IN WATER 250 ML IV SCH (08:36)
[2017-03-24] MEDS: BENZOCAINE/MENTHOL 1 LOZENGE PO PRN ×4 (12:33→20:19)
[2017-03-24] MEDS: METHOCARBAMOL 750 MG TABLET PO PRN ×2 (13:33→20:11)
--- NOTE | 2017-03-24 20:16 | Internal Med Progress Note ---
Medical - PN: Subj Patient information: Note initiated : 03/24/17 at 8:14 pm Service Date, if different from initiated Date: [] Patient: Josefa Renee a 76 y/o F admitted on 03/22/17 for fever, low O2 sat. Chief Complaint: f/u influenza, pneumonia Interval history: Ms. Renee is a 76 year old Female with h/o hip fracture, ca breast, recently discharged from this hospital to [place], presents today with complaints of ever, shotness of breath and cough. the patient notes that she has been having cough and not feeling well x 3-5 datys, decreased appetitie over 2 days, she also has noted some soreness in the throat with change in voice quality. The patient since yesterday is having shortness of breath and cough, Cough with yellowish sputum, having fevers, no chills. She was brought to the ER early today, was diagnosed with influenza type B, started on tamiflu and sent back to the [place]. The patient took one dose, not sure if got another, but her condition worsened, she continued to have fever , became more short of breath, with cough, and new hypoxia. She was sent again for evaluation. She admits to haveing some nasuea and vomiting, some headache, fatigue and maliaise. She denies any other symptom. In the ER she wass febrile, hypoxic, needing 4L oxygen to keep her sat > 90, she as also tachypenic, Her WBC was elevated, to 14, her ABG showed hypoxia. Her CXR was neg, given her hypoxia, and recent hip surgery with h/o cancer, CTA to r/o PE was done, which is prelimnary reported neg, but she has bilateral pneumona on the basilar region. She is being admitted to the hospital for further management. Patients son is present in the ER, patient is DNR code status She has newly diagnosed Ca breast with mets, CT shows significant axiallary mets , patietn was to see oncologist today, but this was postponed in light of influenza. Mar 23 Patient seen examined,she still has cough, and shortness of breath her wbc is better slightly Her CT scan and THyrroid usg reviewed plan of care reviewed with patient and her son. Will try to consult ENT on evalution of large thyroid mass/ goiter microbiology pending. Mar 24 Cough is starting to become somewhat productive, clearish sputum. No chest pains. White count normalizing. ENT notation for outpatient workup of thyroid is noted. Patient currently without any dysphagia or dyspnea. Sputum culture without pathogens isolated. - Constitutional Vitals: Vital Signs Temp Pulse Resp BP Pulse Ox 98.4 F 72 20 113/60 97 03/24/17 19:45 03/24/17 19:45 03/24/17 19:45 03/24/17 19:45 03/24/17 19:45 Period Temp Pulse Resp BP Sys/Weinstein Pulse Ox Last 24 Hr 97.4 F-98.8 F 64-104 16-24 96-151/45-73 94-97 Intake and Output 03/24/17 03/24/17 03/24/17 05:59 13:59 21:59 Intake Total 300 / 300 1010 / 1010 500 / 500 Output Total Balance 298 / 298 958 / 958 499 / 499 Weight 157 lb 8 oz Patient Weight 03/25/17 05:59 Weight 157 lb 8 oz Intake & Output: Intake & Output 03/24/17 03/24/17 03/24/17 05:59 13:59 21:59 Intake Total 300 / 300 1010 / 1010 500 / 500 Output Total Balance 298 / 298 958 / 958 499 / 499 Weight 157 lb 8 oz Intake: IV 250 / 250 Vancomycin 1,000 mg In Dextrose 250 / 250 5% in Water 250 ml @ 250 mls/ hr IV Q24H [facility] Rx#:[id number] Oral 300 / 300 760 / 760 500 / 500 Output: Void Amount 50 / 50 # of times incontinent of urine / 2 2 Other: Meal Breakfast Dinner Percent of Meal Consumed 100% 100% Feeding Ability Assist with Tray Set Up Assist with Tray Set Up # Voids 1 Exam: General: Sitting up in bed, mildly ill-appearing Chest: Scattered rhonchi and wheezes throughout both lung shannon, respirations mildly labored Cardiovascular: Regular, no edema (compression hose on) Abdomen: Soft, nontender Neuro: Alert, oriented, generally weak but nonfocal. Medical - PN: Obj Da - Labs CBC & Chem 7: 03/24/17 03:50 03/24/17 03:50 Labs: Abnormal Lab Results 03/24/17 03/24/17 03/23/17 03:50 03:50 04:00 WBC RBC 3.56 L Hgb 11.0 L Hct 32.7 L Gran % Lymph % (Auto) 14.1 L Gran # Lymph # (Auto) 1.1 L [place] # (Auto) Band Neutrophils % Lymphocytes % Sodium Chloride Glucose Calcium Albumin 3.0 L TSH 0.17 L 03/23/17 03/23/17 03/22/17 04:00 04:00 18:47 WBC 13.5 H RBC 3.77 L Hgb 11.6 L Hct 34.4 L Gran % Lymph % (Auto) Gran # Lymph # (Auto) [place] # (Auto) Band Neutrophils % 32 H Lymphocytes % 6 L Sodium 130 L 132 L Chloride 94 L 93 L Glucose 127 H 127 H Calcium 8.4 L Albumin TSH 03/22/17 18:47 WBC 14.2 H RBC 3.86 L Hgb Hct 35.3 L Gran % 89.3 H Lymph % (Auto) 3.1 L Gran # 12.7 H Lymph # (Auto) 0.4 L [place] # (Auto) 1.1 H Band Neutrophils % Lymphocytes % Sodium Chloride Glucose Calcium Albumin TSH Meds: Medications Acetaminophen (Tylenol) 650 mg PO Q6HP PRN PRN Reason: PAIN/FEVER > 101 Last Admin: 03/23/17 00:49 Dose: 650 mg Hydrocodone Bitart/Acetaminophen ([place] 5/325mg) 1 tab PO Q4HP PRN PRN Reason: PAIN LEVEL 3-6 Last Admin: 03/24/17 20:10 Dose: 1 tab Albuterol/Ipratropium (Duoneb) 3 ml NEB Q6HRT [facility] Last Admin: 03/24/17 19:02 Dose: 3 ml Calcium Carbonate/Glycine (Tums) 500 - 1,000 mg CHEWED Q6HP PRN PRN Reason: Dyspepsia Cefepime HCl (Maxipime) 2 gm IV Q8H [facility] Last Admin: 03/24/17 13:52 Dose: 2 gm Dorzolamide HCl (Trusopt 2% Ophth Drops) 1 gtt OU BID [facility] Last Admin: 03/24/17 08:16 Dose: Not Given Famotidine (Pepcid) 20 mg PO BID [facility] Last Admin: 03/24/17 20:11 Dose: 20 mg Heparin Sodium (Porcine) (Heparin) 5,000 unit SQ Q12 [facility] Last Admin: 03/24/17 20:10 Dose: 5,000 unit Vancomycin HCl 1,000 mg/ (Dextrose) 250 mls @ 250 mls/hr IV Q24H [facility] Last Infusion: 03/24/17 09:38 Dose: Infused Lactobacillus Rhamnosus (Culturelle) 1 cap PO DAILY [facility] Last Admin: 03/24/17 08:16 Dose: 1 cap Methocarbamol (Robaxin) 750 mg PO Q6HP PRN PRN Reason: Muscle Spasm Last Admin: 03/24/17 20:11 Dose: 750 mg Naloxone HCl (Narcan) 0.1 mg IV Q2MIN PRN PRN Reason: Opiate Reversal Ondansetron HCl (Zofran) 4 mg IV Q4HP PRN PRN Reason: Nausea And Vomiting Last Admin: 03/23/17 11:40 Dose: 4 mg Oseltamivir Phosphate (Tamiflu) 75 mg PO BID [facility] Stop: 03/27/17 20:59 Last Admin: 03/24/17 20:11 Dose: 75 mg Pneumococcal Polyvalent Vaccine (Pneumovax 23) 0.5 ml IM .ONCE ONE Stop: 03/27/17 10:01 Throat Lozenges (Cepacol) 1 lozenge PO PRN PRN PRN Reason: Sore Throat Last Admin: 03/24/17 16:16 Dose: 1 lozenge Vancomycin HCl (Vancomycin Per Pharmacy) 1 order IV UD [facility] Medical - PN: A/P - Time Spent With Patient Total time spent is greater than 50% in coordination of care (as documented) at patient's floor/unit and/or counseling patient: - Narrative A/P Narrative: 76-year-old female with recent hip fracture, readmitted with influenza and healthcare associated pneumonia with acute hypoxic respiratory failure. Also with known new lead diagnosed advanced breast cancer. Healthcare Associated pneumonia.: Treat with Vanco and cefepime for now, Pt still has significant cough and shortness of breath, Sepsis: BP stable, lactate not elevated, IV fluids and monitor resp status closely; change to med-surg status Monday, WBC trending down. Influenza type b: On Tamiflu 75mg bid Acute hypoxic Respiratory Failure: Due to pna/ influenza; Continue to treat underlying condition, Oxygen via nasal canula, no e/o PE on CT. Consider bipap if patient worsens. Goiter: Case reviewed with Dr Carbone, ENT, no urgent indication for decompression surgery as long as there is no resp compromise. Patient will need thyroid biopsy to determine the etiology of the mass vs goiter, that is not scheduled yet, but can be scheduled once pneumonia improves. She will need ENT follow up at discharge. Breast Cancer with metastases and local infiltration: Oncology appointment rescheduled to 04/12/17. Glaucoma: On home meds Hip Fracture: DVT prophlaxis, pain management, OT/ PT treatment DVT hep sq, SCD Regular diet DNR code status. Medical - PN: Qual - VTE Deep Vein Thrombosis/Pulmonary Embolism Present on Admission: No
[2017-03-25] MEDS: IPRATROPIUM/ALBUTEROL 3 ML AMPUL.NEB NEB SCH ×4 (00:05→19:12)
[2017-03-25] MEDS: BENZOCAINE/MENTHOL 1 LOZENGE PO PRN (03:40)
[2017-03-25 05:34] LABS: ALT/SGPT 18 U/l (0-40); Albumin 3.3 gm/dL (3.2-5.2); Albumin/Globulin Ratio 1.1 (1.0-2.3); Alkaline Phosphatase 66 U/L (39-117); Basophils # (Auto) 0 K/mcL (0.0-0.3); Basophils % (Auto) 0.5 % (0.0-2.0); Bilirubin,Direct < 0.2 mg/dL (0.0-0.3); Blood Urea Nitrogen 18 mg/dl (8-23); Eosinophils # (Auto) 0 K/mcL (0.0-0.7); Eosinophils % (Auto) 0.3 % (0.0-7.0); Gamma Glutamyl Transpeptidase 22 U/L (5-36); Granulocytes % (Auto) 67.5 % (38.0-78.0); Lymphocytes # (Auto) 1.3 K/mcL (1.5-4.8); Lymphocytes % (Auto) 21.8 % (15.5-49.0); Magnesium 2.2 mg/dL (1.6-2.5); Mean Cell Volume 91.6 fL (80.0-100.0); Mean Corpuscular HGB Conc 33.9 g/dL (31.0-36.0); Monocytes # (Auto) 0.6 K/mcL (0.1-0.9); Monocytes % (Auto) 9.9 % (1.0-12.0); Platelet Count 245 K/mcL (140-440); Red Cell Distribution Width 13.1 % (11.5-14.5); Uric Acid 4.4 mg/dL (2.5-8.0)
[2017-03-25] MEDS: CEFEPIME 2 GM VIAL IV SCH ×3 (05:50→22:05)
[2017-03-25] MEDS: OSELTAMIVIR PHOSPHATE 75 MG CAPSULE PO SCH ×2 (09:09→20:14)
[2017-03-25] MEDS: FAMOTIDINE 20 MG TABLET PO SCH ×2 (09:09→20:14)
[2017-03-25] MEDS: LACTOBACILLUS 1 CAPSULE PO SCH (09:09)
[2017-03-25] MEDS: HEPARIN 5,000 UNIT/ML VIAL SQ SCH ×2 (09:09→20:15)
[2017-03-25] MEDS: DORZOLAMIDE 2% OPHTH DROPS 10ML BOTTLE OU SCH ×2 (09:10→20:57)
[2017-03-25] MEDS: HYDROcodone/APAP 5/325MG TABLET PO PRN ×2 (09:10→18:46)
[2017-03-25] MEDS ORDERED: MAGNESIUM HYDROXIDE 30 ML ORAL.SUSP PO PRN (09:17)
[2017-03-25] MEDS ORDERED: BISACODYL 10 MG SUPP.RECT PR PRN (09:18)
[2017-03-25] MEDS: METHOCARBAMOL 750 MG TABLET PO PRN ×2 (10:19→18:46)
[2017-03-25] MEDS: VANCOMYCIN 1,000 MG in DEXTROSE 5% IN WATER 250 ML IV SCH (10:20)
[2017-03-25] MEDS: 0.9 % SODIUM CHLORIDE 10 ML SYRINGE IV SCH ×3 (10:20→22:05)
[2017-03-25] MEDS ORDERED: guaiFENesin/DEXTROMETHORPHAN ORAL SOL PO PRN (13:58)
--- NOTE | 2017-03-25 16:22 | Internal Med Progress Note ---
Medical - PN: Subj Patient information: Note initiated : 03/25/17 at 4:20 pm Service Date, if different from initiated Date: [] Patient: Josefa Renee 76 y/o F admitted on 03/22/17 for fever, low O2 sat. Chief Complaint: follow-up influenza and pneumonia Interval history: Ms. Renee is a 76 year old Female with h/o hip fracture, ca breast, recently discharged from this hospital to [place], presents today with complaints of ever, shotness of breath and cough. the patient notes that she has been having cough and not feeling well x 3-5 datys, decreased appetitie over 2 days, she also has noted some soreness in the throat with change in voice quality. The patient since yesterday is having shortness of breath and cough, Cough with yellowish sputum, having fevers, no chills. She was brought to the ER early today, was diagnosed with influenza type B, started on tamiflu and sent back to the [place]. The patient took one dose, not sure if got another, but her condition worsened, she continued to have fever , became more short of breath, with cough, and new hypoxia. She was sent again for evaluation. She admits to haveing some nasuea and vomiting, some headache, fatigue and maliaise. She denies any other symptom. In the ER she wass febrile, hypoxic, needing 4L oxygen to keep her sat > 90, she as also tachypenic, Her WBC was elevated, to 14, her ABG showed hypoxia. Her CXR was neg, given her hypoxia, and recent hip surgery with h/o cancer, CTA to r/o PE was done, which is prelimnary reported neg, but she has bilateral pneumona on the basilar region. She is being admitted to the hospital for further management. Patients son is present in the ER, patient is DNR code status She has newly diagnosed Ca breast with mets, CT shows significant axiallary mets , patietn was to see oncologist today, but this was postponed in light of influenza. Mar 23 Patient seen examined,she still has cough, and shortness of breath her wbc is better slightly Her CT scan and THyrroid usg reviewed plan of care reviewed with patient and her son. Will try to consult ENT on evalution of large thyroid mass/ goiter microbiology pending. Mar 24 Cough is starting to become somewhat productive, clearish sputum. No chest pains. White count normalizing. ENT notation for outpatient workup of thyroid is noted. Patient currently without any dysphagia or dyspnea. Sputum culture without pathogens isolated. March 25 Severe coughing spells difficult to mobilize secretions early this afternoon. Required suctioning. Otherwise had been continuing to progress. Secretions and sputum are clear. Otherwise reports no swallowing difficulties. No stridor - Constitutional Vitals: Vital Signs Temp Pulse Resp BP Pulse Ox 98.2 F 68 18 130/71 94 03/25/17 12:00 03/25/17 13:06 03/25/17 13:06 03/25/17 12:00 03/25/17 12:00 Period Temp Pulse Resp BP Sys/Weinstein Pulse Ox Last 24 Hr 97.8 F-99.3 F 65-81 16-20 106-135/42-79 94-98 Intake and Output 03/25/17 03/25/17 03/25/17 05:59 13:59 21:59 Intake Total 230 / 230 1220 / 1220 Output Total 302 / 302 Balance 229 / 229 918 / 918 Intake & Output: Intake & Output 03/25/17 03/25/17 03/25/17 05:59 13:59 21:59 Intake Total 230 / 230 1220 / 1220 Output Total 302 / 302 Balance 229 / 229 918 / 918 Intake: Oral 230 / 230 1220 / 1220 Output: Void Amount 300 / 300 # of times incontinent of urine 2 / 2 Other: Meal Lunch Percent of Meal Consumed 100% Feeding Ability Assist with Tray Set Up # Voids 1 # Bowel Movements 1 Exam: General: In distress during coughing, improved after suctioning. Chest: Scattered upper airway sounds throughout lung shannon Cardiovascular: Regular Abdomen: Soft Neuro: Alert, oriented 3, generally weak, but nonfocal. Medical - PN: Obj Da - Labs CBC & Chem 7: 03/25/17 03:40 03/25/17 03:40 Labs: Abnormal Lab Results 03/25/17 03/25/17 03/24/17 03:40 03:40 03:50 WBC RBC 3.60 L Hgb 11.2 L Hct 33.0 L Gran % Lymph % (Auto) Gran # Lymph # (Auto) 1.3 L [place] # (Auto) Band Neutrophils % Lymphocytes % Sodium 132 L Chloride Glucose Calcium Albumin 3.0 L TSH 03/24/17 03/23/17 03/23/17 03:50 04:00 04:00 WBC RBC 3.56 L Hgb 11.0 L Hct 32.7 L Gran % Lymph % (Auto) 14.1 L Gran # Lymph # (Auto) 1.1 L [place] # (Auto) Band Neutrophils % Lymphocytes % Sodium 130 L Chloride 94 L Glucose 127 H Calcium 8.4 L Albumin TSH 0.17 L 03/23/17 03/22/17 03/22/17 04:00 18:47 18:47 WBC 13.5 H 14.2 H RBC 3.77 L 3.86 L Hgb 11.6 L Hct 34.4 L 35.3 L Gran % 89.3 H Lymph % (Auto) 3.1 L Gran # 12.7 H Lymph # (Auto) 0.4 L [place] # (Auto) 1.1 H Band Neutrophils % 32 H Lymphocytes % 6 L Sodium 132 L Chloride 93 L Glucose 127 H Calcium Albumin TSH Meds: Medications Acetaminophen (Tylenol) 650 mg PO Q6HP PRN PRN Reason: PAIN/FEVER > 101 Last Admin: 03/23/17 00:49 Dose: 650 mg Hydrocodone Bitart/Acetaminophen ([place] 5/325mg) 1 tab PO Q4HP PRN PRN Reason: PAIN LEVEL 3-6 Last Admin: 03/25/17 09:10 Dose: 1 tab Albuterol/Ipratropium (Duoneb) 3 ml NEB Q6HRT [facility] Last Admin: 03/25/17 13:06 Dose: 3 ml Bisacodyl (Dulcolax) 10 mg IN DAILYP PRN PRN Reason: Constipation Calcium Carbonate/Glycine (Tums) 500 - 1,000 mg CHEWED Q6HP PRN PRN Reason: Dyspepsia Cefepime HCl (Maxipime) 2 gm IV Q8H [facility] Last Admin: 03/25/17 14:45 Dose: 2 gm Dorzolamide HCl (Trusopt 2% Ophth Drops) 1 gtt OU BID [facility] Last Admin: 03/25/17 09:10 Dose: Not Given Famotidine (Pepcid) 20 mg PO BID [facility] Last Admin: 03/25/17 09:09 Dose: 20 mg Guaifenesin (Robitussin Dm) 10 ml PO Q4HP PRN PRN Reason: Cough Heparin Sodium (Porcine) (Heparin) 5,000 unit SQ Q12 [facility] Last Admin: 03/25/17 09:09 Dose: 5,000 unit Vancomycin HCl 1,000 mg/ (Dextrose) 250 mls @ 250 mls/hr IV Q24H [facility] Last Admin: 03/25/17 10:20 Dose: 250 mls/hr Lactobacillus Rhamnosus (Culturelle) 1 cap PO DAILY [facility] Last Admin: 03/25/17 09:09 Dose: 1 cap Magnesium Hydroxide (Milk Of Magnesia) 30 ml PO BIDP PRN PRN Reason: Constipation Last Admin: 03/25/17 09:32 Dose: 30 ml Methocarbamol (Robaxin) 750 mg PO Q6HP PRN PRN Reason: Muscle Spasm Last Admin: 03/25/17 10:19 Dose: 750 mg Naloxone HCl (Narcan) 0.1 mg IV Q2MIN PRN PRN Reason: Opiate Reversal Ondansetron HCl (Zofran) 4 mg IV Q4HP PRN PRN Reason: Nausea And Vomiting Last Admin: 03/23/17 11:40 Dose: 4 mg Oseltamivir Phosphate (Tamiflu) 75 mg PO BID [facility] Stop: 03/27/17 20:59 Last Admin: 03/25/17 09:09 Dose: 75 mg Pneumococcal Polyvalent Vaccine (Pneumovax 23) 0.5 ml IM .ONCE ONE Stop: 03/27/17 10:01 Sodium Chloride (Saline Flush) 10 ml IV Q8 [facility] Last Admin: 03/25/17 10:20 Dose: 10 ml Throat Lozenges (Cepacol) 1 lozenge PO PRN PRN PRN Reason: Sore Throat Last Admin: 03/25/17 03:40 Dose: 1 lozenge Vancomycin HCl (Vancomycin Per Pharmacy) 1 order IV UD [facility] Medical - PN: A/P - Narrative A/P Narrative: 76-year-old female with recent hip fracture, readmitted with influenza and healthcare associated pneumonia with acute hypoxic respiratory failure. Also with known newly diagnosed advanced breast cancer. Healthcare Associated pneumonia.: continues with Vanco and cefepime. Pt still has significant cough, though starting to become productive, but difficulty to mobilize secretions. Will add Robitussin-DM. Sepsis: BP stable, lactate not elevated, IV fluids and monitor resp status closely; change to med-surg status Monday, WBC trending down. Influenza type b: On Tamiflu 75mg bid Acute hypoxic Respiratory Failure: Due to pna/ influenza; Continue to treat underlying condition, Oxygen via nasal canula, no e/o PE on CT. Consider bipap if patient worsens, but slowly improving. Goiter: Case reviewed with Dr Carbone, ENT, no urgent indication for decompression surgery as long as there is no resp compromise. Patient will need thyroid biopsy to determine the etiology of the mass vs goiter, that is not scheduled yet, but can be scheduled once pneumonia improves. She will need ENT follow up at discharge. Breast Cancer with metastases and local infiltration: Oncology appointment rescheduled to 04/12/17. Glaucoma: On home meds Hip Fracture: DVT prophlaxis, pain management, OT/ PT treatment DVT hep sq, SCD Regular diet DNR code status. Medical - PN: Qual - VTE Deep Vein Thrombosis/Pulmonary Embolism Present on Admission: No
[2017-03-26] MEDS: IPRATROPIUM/ALBUTEROL 3 ML AMPUL.NEB NEB SCH ×4 (02:39→19:30)
[2017-03-26] MEDS: CEFEPIME 2 GM VIAL IV SCH ×2 (05:27→16:14)
[2017-03-26] MEDS: 0.9 % SODIUM CHLORIDE 10 ML SYRINGE IV SCH ×4 (05:27→22:20)
[2017-03-26 06:21] LABS: Basophils # (Auto) 0 K/mcL (0.0-0.3); Basophils % (Auto) 0.7 % (0.0-2.0); Eosinophils # (Auto) 0 K/mcL (0.0-0.7); Granulocytes % (Auto) 60.8 % (38.0-78.0); Lymphocytes # (Auto) 1.3 K/mcL (1.5-4.8); Lymphocytes % (Auto) 26.9 % (15.5-49.0); Mean Cell Volume 91.1 fL (80.0-100.0); Mean Corpuscular HGB Conc 33.8 g/dL (31.0-36.0); Mean Corpuscular Hemoglobin 30.8 pg (26.0-34.0); Monocytes # (Auto) 0.5 K/mcL (0.1-0.9); Monocytes % (Auto) 10.6 % (1.0-12.0); Platelet Count 284 K/mcL (140-440); Red Cell Distribution Width 13.1 % (11.5-14.5)
[2017-03-26 06:37] LABS: ALT/SGPT 16 U/l (0-40); Albumin 3.4 gm/dL (3.2-5.2); Albumin/Globulin Ratio 1.2 (1.0-2.3); Alkaline Phosphatase 69 U/L (39-117); Bilirubin,Direct < 0.2 mg/dL (0.0-0.3); Blood Urea Nitrogen 15 mg/dl (8-23); Gamma Glutamyl Transpeptidase 20 U/L (5-36); Magnesium 2.4 mg/dL (1.6-2.5); Uric Acid 4.1 mg/dL (2.5-8.0)
[2017-03-26] MEDS ORDERED: VANCOMYCIN 1,000 MG in DEXTROSE 5% IN WATER 250 ML IV ONE (09:00)
[2017-03-26] MEDS: LACTOBACILLUS 1 CAPSULE PO SCH (09:49)
[2017-03-26] MEDS: FAMOTIDINE 20 MG TABLET PO SCH ×2 (09:49→20:26)
[2017-03-26] MEDS: OSELTAMIVIR PHOSPHATE 75 MG CAPSULE PO SCH ×2 (09:50→20:27)
[2017-03-26] MEDS: DORZOLAMIDE 2% OPHTH DROPS 10ML BOTTLE OU SCH ×2 (09:50→20:28)
[2017-03-26] MEDS: HEPARIN 5,000 UNIT/ML VIAL SQ SCH ×2 (09:50→20:26)
[2017-03-26] MEDS ORDERED: BISACODYL 10 MG SUPP.RECT PR PRN (17:48)
[2017-03-26] MEDS ORDERED: guaiFENesin/DEXTROMETHORPHAN ORAL SOL PO PRN (17:48)
[2017-03-26] MEDS ORDERED: CALCIUM CARBONATE 500 MG TAB.CHEW CHEWED PRN (17:48)
[2017-03-26] MEDS ORDERED: MAGNESIUM HYDROXIDE 30 ML ORAL.SUSP PO PRN (17:48)
[2017-03-26] MEDS ORDERED: ACETAMINOPHEN 325 MG TABLET PO PRN (17:48)
[2017-03-26] MEDS ORDERED: ONDANSETRON 4 MG/2 ML VIAL IV PRN (17:48)
[2017-03-26] MEDS ORDERED: NALOXONE HCL 0.4 MG/ML VIAL IV PRN (17:48)
[2017-03-26] MEDS: HYDROcodone/APAP 5/325MG TABLET PO PRN (20:26)
[2017-03-26] MEDS: METHOCARBAMOL 750 MG TABLET PO PRN (20:27)
[2017-03-26] MEDS ORDERED: CEFEPIME 2 GM VIAL IV SCH (22:00)
--- NOTE | 2017-03-26 23:04 | Internal Med Progress Note ---
Medical - PN: Subj Patient information: Note initiated : 03/26/17 at 11:02 pm Service Date, if different from initiated Date: [] Patient: Josefa Renee a 76 y/o F admitted on 03/22/17 for fever, low O2 sat. Chief Complaint: f/u influenza Interval history: Ms. Renee is a 76 year old Female with h/o hip fracture, ca breast, recently discharged from this hospital to [place], presents today with complaints of ever, shotness of breath and cough. the patient notes that she has been having cough and not feeling well x 3-5 datys, decreased appetitie over 2 days, she also has noted some soreness in the throat with change in voice quality. The patient since yesterday is having shortness of breath and cough, Cough with yellowish sputum, having fevers, no chills. She was brought to the ER early today, was diagnosed with influenza type B, started on tamiflu and sent back to the [place]. The patient took one dose, not sure if got another, but her condition worsened, she continued to have fever , became more short of breath, with cough, and new hypoxia. She was sent again for evaluation. She admits to haveing some nasuea and vomiting, some headache, fatigue and maliaise. She denies any other symptom. In the ER she wass febrile, hypoxic, needing 4L oxygen to keep her sat > 90, she as also tachypenic, Her WBC was elevated, to 14, her ABG showed hypoxia. Her CXR was neg, given her hypoxia, and recent hip surgery with h/o cancer, CTA to r/o PE was done, which is prelimnary reported neg, but she has bilateral pneumona on the basilar region. She is being admitted to the hospital for further management. Patients son is present in the ER, patient is DNR code status She has newly diagnosed Ca breast with mets, CT shows significant axiallary mets , patietn was to see oncologist today, but this was postponed in light of influenza. Mar 23 Patient seen examined,she still has cough, and shortness of breath her wbc is better slightly Her CT scan and THyrroid usg reviewed plan of care reviewed with patient and her son. Will try to consult ENT on evalution of large thyroid mass/ goiter microbiology pending. Mar 24 Cough is starting to become somewhat productive, clearish sputum. No chest pains. White count normalizing. ENT notation for outpatient workup of thyroid is noted. Patient currently without any dysphagia or dyspnea. Sputum culture without pathogens isolated. March 25 Severe coughing spells difficult to mobilize secretions early this afternoon. Required suctioning. Otherwise had been continuing to progress. Secretions and sputum are clear. Otherwise reports no swallowing difficulties. No stridor March 26 Complaining of burning with vancomycin infusion. Also getting some pain with cefepime infusion. Sided to stop thank after this morning's dose. She refused cefepime this evening. Overall she's feeling better, less cough and sputum production. No fevers and chills. Looks much more comfortable and yesterday. Still reports no swallowing problems. No stridor noted. - Constitutional Vitals: Vital Signs Temp Pulse Resp BP Pulse Ox 97.5 F 89 24 H 135/74 94 03/26/17 20:00 03/26/17 20:00 03/26/17 20:00 03/26/17 20:00 03/26/17 20:00 Period Temp Pulse Resp BP Sys/Weinstein Pulse Ox Last 24 Hr 97.0 F-98.6 F 59-89 15-24 107-145/57-74 92-98 Intake and Output 03/26/17 03/26/17 03/27/17 13:59 21:59 05:59 Intake Total 360 / 360 Output Total Balance 359 / 359 Weight 158 lb Patient Weight 03/27/17 05:59 Weight 158 lb Intake & Output: Intake & Output 03/26/17 03/26/17 03/27/17 13:59 21:59 05:59 Intake Total 360 / 360 Output Total Balance 359 / 359 Weight 158 lb Intake: Oral 360 / 360 Output: # of times incontinent of urine Other: Meal Lunch Percent of Meal Consumed 100% # Bowel Movements 1 # of times incontinent of 1 Bowels Exam: General: Sitting in bed in no acute distress, appears comfortable Chest: Clear without rales or rhonchi Cardiovascular: Regular rate and rhythm, 1/6 systolic murmur appreciated today, no edema Abdomen: Soft, nontender Neuro: Alert, oriented, generally weak but otherwise nonfocal. Medical - PN: Obj Da - Labs CBC & Chem 7: 03/26/17 03:30 03/26/17 03:30 Labs: Abnormal Lab Results 03/26/17 03/26/17 03/25/17 03:30 03:30 03:40 RBC 3.50 L Hgb 10.8 L Hct 31.9 L Lymph % (Auto) Lymph # (Auto) 1.3 L Sodium 132 L Phosphorus 2.3 L Albumin 03/25/17 03/24/17 03/24/17 03:40 03:50 03:50 RBC 3.60 L 3.56 L Hgb 11.2 L 11.0 L Hct 33.0 L 32.7 L Lymph % (Auto) 14.1 L Lymph # (Auto) 1.3 L 1.1 L Sodium Phosphorus Albumin 3.0 L Meds: Medications Acetaminophen (Tylenol) 650 mg PO Q6HP PRN PRN Reason: PAIN/FEVER > 101 Hydrocodone Bitart/Acetaminophen ([place] 5/325mg) 1 tab PO Q4HP PRN PRN Reason: PAIN LEVEL 3-6 Last Admin: 03/26/17 20:26 Dose: 1 tab Albuterol/Ipratropium (Duoneb) 3 ml NEB Q6HRT [facility] Last Admin: 03/26/17 19:30 Dose: 3 ml Bisacodyl (Dulcolax) 10 mg MA DAILYP PRN PRN Reason: Constipation Calcium Carbonate/Glycine (Tums) 500 - 1,000 mg CHEWED Q6HP PRN PRN Reason: Dyspepsia Cefepime HCl (Maxipime) 2 gm IV Q8H [facility] Dorzolamide HCl (Trusopt 2% Ophth Drops) 1 gtt OU BID [facility] Last Admin: 03/26/17 20:28 Dose: Not Given Famotidine (Pepcid) 20 mg PO BID [facility] Last Admin: 03/26/17 20:26 Dose: 20 mg Guaifenesin (Robitussin Dm) 10 ml PO Q4HP PRN PRN Reason: Cough Heparin Sodium (Porcine) (Heparin) 5,000 unit SQ Q12 [facility] Last Admin: 03/26/17 20:26 Dose: 5,000 unit Lactobacillus Rhamnosus (Culturelle) 1 cap PO DAILY [facility] Magnesium Hydroxide (Milk Of Magnesia) 30 ml PO BIDP PRN PRN Reason: Constipation Methocarbamol (Robaxin) 750 mg PO Q6HP PRN PRN Reason: Muscle Spasm Last Admin: 03/26/17 20:27 Dose: 750 mg Naloxone HCl (Narcan) 0.1 mg IV Q2MIN PRN PRN Reason: Opiate Reversal Ondansetron HCl (Zofran) 4 mg IV Q4HP PRN PRN Reason: Nausea And Vomiting Oseltamivir Phosphate (Tamiflu) 75 mg PO BID [facility] Stop: 03/27/17 20:59 Last Admin: 03/26/17 20:27 Dose: 75 mg Sodium Chloride (Saline Flush) 10 ml IV Q8 [facility] Throat Lozenges (Cepacol) 1 lozenge PO PRN PRN PRN Reason: Sore Throat Medical - PN: A/P - Narrative A/P Narrative: 76-year-old female with recent hip fracture, readmitted with influenza and healthcare associated pneumonia with acute hypoxic respiratory failure. Also with known newly diagnosed advanced breast cancer. Healthcare Associated pneumonia: Improving. Stop vancomycin due to no staph cultured and burning. Patient has refused cefepime. Cough improving. Plan: Change to PO cefuroxime, continue Robitussin-DM prn. Sepsis: BP stable, lactate not elevated, IV fluids and monitor resp status closely; change to med-surg status Monday, WBC trending down. Influenza type b: On Tamiflu 75mg bid Acute hypoxic Respiratory Failure: Due to pna/ influenza; Continue to treat underlying condition, Oxygen via nasal canula, no e/o PE on CT. Consider bipap if patient worsens, but slowly improving. Goiter: Case reviewed with Dr Carbone, ENT, no urgent indication for decompression surgery as long as there is no resp compromise. Patient will need thyroid biopsy to determine the etiology of the mass vs goiter, that is not scheduled yet, but can be scheduled once pneumonia improves. She will need ENT follow up at discharge. Breast Cancer with metastases and local infiltration: Oncology appointment rescheduled to 04/12/17. Glaucoma: On home meds Hip Fracture: DVT prophlaxis, pain management, OT/ PT treatment Dispo: Should be stable for transfer back to [facility] when they're able to take patients after the holiday. DVT hep sq, SCD Regular diet DNR code status. Medical - PN: Qual - VTE Deep Vein Thrombosis/Pulmonary Embolism Present on Admission: No
[2017-03-26] MEDS: BENZOCAINE/MENTHOL 1 LOZENGE PO PRN (23:14)
[2017-03-26] MEDS: CEFUROXIME 500 MG TABLET PO SCH (23:39)
[2017-03-27] MEDS: IPRATROPIUM/ALBUTEROL 3 ML AMPUL.NEB NEB SCH ×5 (03:46→23:55)
[2017-03-27] MEDS: 0.9 % SODIUM CHLORIDE 10 ML SYRINGE IV SCH ×3 (04:58→21:32)
[2017-03-27 05:37] LABS: Basophils # (Auto) 0 K/mcL (0.0-0.3); Basophils % (Auto) 0.6 % (0.0-2.0); Eosinophils # (Auto) 0.1 K/mcL (0.0-0.7); Eosinophils % (Auto) 1.6 % (0.0-7.0); Lymphocytes # (Auto) 1.4 K/mcL (1.5-4.8); Lymphocytes % (Auto) 25.7 % (15.5-49.0); Mean Cell Volume 91.6 fL (80.0-100.0); Mean Corpuscular HGB Conc 33.3 g/dL (31.0-36.0); Mean Corpuscular Hemoglobin 30.6 pg (26.0-34.0); Monocytes # (Auto) 0.7 K/mcL (0.1-0.9); Monocytes % (Auto) 12.1 % (1.0-12.0); Platelet Count 315 K/mcL (140-440); Red Cell Distribution Width 13.5 % (11.5-14.5)
[2017-03-27 06:41] LABS: ALT/SGPT 18 U/l (0-40); Albumin 3.5 gm/dL (3.2-5.2); Alkaline Phosphatase 64 U/L (39-117); Bilirubin,Direct < 0.2 mg/dL (0.0-0.3); Blood Urea Nitrogen 13 mg/dl (8-23); Gamma Glutamyl Transpeptidase 22 U/L (5-36); Magnesium 2.2 mg/dL (1.6-2.5); Uric Acid 3.7 mg/dL (2.5-8.0)
[2017-03-27] MEDS ORDERED: VANCOMYCIN 1,000 MG in 0.9 % SODIUM CHLORIDE 250 ML IV SCH (09:00)
[2017-03-27] MEDS ORDERED: PNEUMOCOCCAL 23-VAL P-SAC VAC 0.5 ML VIAL IM ONE (10:00)
[2017-03-27] MEDS ORDERED: FLU VACC QS2017-18 36MOS UP/PF 60 MCG/0.5 ML SYRINGE IM ONE (10:15)
[2017-03-27] MEDS: FAMOTIDINE 20 MG TABLET PO SCH ×2 (10:32→20:11)
[2017-03-27] MEDS: LACTOBACILLUS 1 CAPSULE PO SCH (10:32)
[2017-03-27] MEDS: CEFUROXIME 500 MG TABLET PO SCH ×2 (10:32→20:12)
[2017-03-27] MEDS: OSELTAMIVIR PHOSPHATE 75 MG CAPSULE PO SCH (10:33)
[2017-03-27] MEDS: HEPARIN 5,000 UNIT/ML VIAL SQ SCH ×2 (10:33→20:11)
[2017-03-27] MEDS: DORZOLAMIDE 2% OPHTH DROPS 10ML BOTTLE OU SCH ×2 (10:33→20:13)
[2017-03-27] MEDS: HYDROcodone/APAP 5/325MG TABLET PO PRN ×2 (11:56→20:12)
[2017-03-27] MEDS: METHOCARBAMOL 750 MG TABLET PO PRN ×2 (11:56→20:12)
--- NOTE | 2017-03-27 14:43 | Internal Med Progress Note ---
Medical - PN: Subj Patient information: Note initiated : 03/27/17 at 2:40 pm Service Date, if different from initiated Date: [] Patient: Josefa Renee 76 y/o F admitted on 03/22/17 for fever, low O2 sat. Chief Complaint: follow-up influenza and pneumonia Interval history: Ms. Renee is a 76 year old Female with h/o hip fracture, ca breast, recently discharged from this hospital to [place], presents today with complaints of ever, shotness of breath and cough. the patient notes that she has been having cough and not feeling well x 3-5 datys, decreased appetitie over 2 days, she also has noted some soreness in the throat with change in voice quality. The patient since yesterday is having shortness of breath and cough, Cough with yellowish sputum, having fevers, no chills. She was brought to the ER early today, was diagnosed with influenza type B, started on tamiflu and sent back to the [place]. The patient took one dose, not sure if got another, but her condition worsened, she continued to have fever , became more short of breath, with cough, and new hypoxia. She was sent again for evaluation. She admits to haveing some nasuea and vomiting, some headache, fatigue and maliaise. She denies any other symptom. In the ER she wass febrile, hypoxic, needing 4L oxygen to keep her sat > 90, she as also tachypenic, Her WBC was elevated, to 14, her ABG showed hypoxia. Her CXR was neg, given her hypoxia, and recent hip surgery with h/o cancer, CTA to r/o PE was done, which is prelimnary reported neg, but she has bilateral pneumona on the basilar region. She is being admitted to the hospital for further management. Patients son is present in the ER, patient is DNR code status She has newly diagnosed Ca breast with mets, CT shows significant axiallary mets , patietn was to see oncologist today, but this was postponed in light of influenza. Mar 23 Patient seen examined,she still has cough, and shortness of breath her wbc is better slightly Her CT scan and THyrroid usg reviewed plan of care reviewed with patient and her son. Will try to consult ENT on evalution of large thyroid mass/ goiter microbiology pending. Mar 24 Cough is starting to become somewhat productive, clearish sputum. No chest pains. White count normalizing. ENT notation for outpatient workup of thyroid is noted. Patient currently without any dysphagia or dyspnea. Sputum culture without pathogens isolated. March 25 Severe coughing spells difficult to mobilize secretions early this afternoon. Required suctioning. Otherwise had been continuing to progress. Secretions and sputum are clear. Otherwise reports no swallowing difficulties. No stridor March 26 Complaining of burning with vancomycin infusion. Also getting some pain with cefepime infusion. Sided to stop thank after this morning's dose. She refused cefepime this evening. Overall she's feeling better, less cough and sputum production. No fevers and chills. Looks much more comfortable and yesterday. Still reports no swallowing problems. No stridor noted. March 27 Several bowel movements today. Had received bowel care after a few days of no BM's. C. difficile was sent, is negative. Otherwise feeling pretty well. Tolerating by mouth antibiotics. Cough continues to improve, no problems with secretions. No dysphagia. - Constitutional Vitals: Vital Signs Temp Pulse Resp BP Pulse Ox 97.8 F 76 16 125/64 95 03/27/17 10:57 03/27/17 13:20 03/27/17 13:20 03/27/17 10:57 03/27/17 13:23 Period Temp Pulse Resp BP Sys/Weinstein Pulse Ox Last 24 Hr 96.4 F-98 F 70-89 15-24 123-135/64-74 91-98 Intake and Output 03/27/17 03/27/17 03/27/17 05:59 13:59 21:59 Intake Total 500 / 500 1160 / 1160 Output Total 2 / 2 2 / 2 Balance 498 / 498 1158 / 1158 Intake & Output: Intake & Output 03/27/17 03/27/17 03/27/17 05:59 13:59 21:59 Intake Total 500 / 500 1160 / 1160 Output Total 2 / 2 2 / 2 Balance 498 / 498 1158 / 1158 Intake: Oral 500 / 500 1160 / 1160 Output: Void Amount / # of times incontinent of urine 2 / 2 Other: Meal Breakfast Percent of Meal Consumed 50% Feeding Ability Independent # Voids 1 # Bowel Movements 1 # of times incontinent of 1 Bowels Exam: General: In no acute distress Chest: Few left basilar rales, improved after deep respirations and cough Cardiovascular: Regular, no edema Abdomen: Soft, nontender, active bowel sounds Neuro: Alert, oriented Medical - PN: Obj Da - Labs CBC & Chem 7: 03/27/17 04:10 03/27/17 04:10 Labs: Abnormal Lab Results 03/27/17 03/27/17 03/26/17 04:10 04:10 03:30 RBC 3.80 L Hgb 11.6 L Hct 34.9 L [place] % (Auto) 12.1 H Lymph # (Auto) 1.4 L Sodium Phosphorus 2.5 L 2.3 L Lactate Dehydrogenase 269 H 03/26/17 03/25/17 03/25/17 03:30 03:40 03:40 RBC 3.50 L 3.60 L Hgb 10.8 L 11.2 L Hct 31.9 L 33.0 L [place] % (Auto) Lymph # (Auto) 1.3 L 1.3 L Sodium 132 L Phosphorus Lactate Dehydrogenase Meds: Medications Acetaminophen (Tylenol) 650 mg PO Q6HP PRN PRN Reason: PAIN/FEVER > 101 Hydrocodone Bitart/Acetaminophen ([place] 5/325mg) 1 tab PO Q4HP PRN PRN Reason: PAIN LEVEL 3-6 Last Admin: 03/27/17 11:56 Dose: 1 tab Albuterol/Ipratropium (Duoneb) 3 ml NEB Q6HRT [facility] Last Admin: 03/27/17 13:10 Dose: 3 ml Bisacodyl (Dulcolax) 10 mg MA DAILYP PRN PRN Reason: Constipation Calcium Carbonate/Glycine (Tums) 500 - 1,000 mg CHEWED Q6HP PRN PRN Reason: Dyspepsia Cefuroxime Axetil (Ceftin) 500 mg PO Q12 [facility] Last Admin: 03/27/17 10:32 Dose: 500 mg Dorzolamide HCl (Trusopt 2% Ophth Drops) 1 gtt OU BID [facility] Last Admin: 03/27/17 10:33 Dose: Not Given Famotidine (Pepcid) 20 mg PO BID [facility] Last Admin: 03/27/17 10:32 Dose: 20 mg Guaifenesin (Robitussin Dm) 10 ml PO Q4HP PRN PRN Reason: Cough Heparin Sodium (Porcine) (Heparin) 5,000 unit SQ Q12 [facility] Last Admin: 03/27/17 10:33 Dose: 5,000 unit Lactobacillus Rhamnosus (Culturelle) 1 cap PO DAILY [facility] Last Admin: 03/27/17 10:32 Dose: 1 cap Magnesium Hydroxide (Milk Of Magnesia) 30 ml PO BIDP PRN PRN Reason: Constipation Methocarbamol (Robaxin) 750 mg PO Q6HP PRN PRN Reason: Muscle Spasm Last Admin: 03/27/17 11:56 Dose: 750 mg Naloxone HCl (Narcan) 0.1 mg IV Q2MIN PRN PRN Reason: Opiate Reversal Ondansetron HCl (Zofran) 4 mg IV Q4HP PRN PRN Reason: Nausea And Vomiting Oseltamivir Phosphate (Tamiflu) 75 mg PO BID [facility] Stop: 03/27/17 20:59 Last Admin: 03/27/17 10:33 Dose: 75 mg Sodium Chloride (Saline Flush) 10 ml IV Q8 [facility] Last Admin: 03/27/17 04:58 Dose: Not Given Throat Lozenges (Cepacol) 1 lozenge PO PRN PRN PRN Reason: Sore Throat Last Admin: 03/26/17 23:14 Dose: 1 lozenge Medical - PN: A/P (1) Influenza Status: Acute Current Visit: Yes (2) Pneumonia Status: Acute Current Visit: Yes (3) Acute respiratory failure with hypoxia Status: Acute Current Visit: Yes (4) Sepsis Status: Acute Current Visit: Yes - Narrative A/P Narrative: 76-year-old female with recent hip fracture, readmitted with influenza and healthcare associated pneumonia with acute hypoxic respiratory failure. Also with known newly diagnosed advanced breast cancer. Healthcare Associated pneumonia: Improving. Stop vancomycin due to no staph cultured and burning during administration. Patient has refused cefepime, changed to cefuroxime and stable. Cough continues to improve. Plan: Change to PO cefuroxime, continue Robitussin-DM prn. Sepsis: BP stable, lactate not elevated. IV fluid now lockec, changed to med- surg status, WBC normalized. Influenza type b: On Tamiflu 75mg bid Acute hypoxic Respiratory Failure: Resolved. Due to pna/ influenza. Goiter: Case reviewed with Dr Carbone, ENT, no urgent indication for decompression surgery as long as there is no resp compromise. Patient will need thyroid biopsy to determine the etiology of the mass vs goiter, that is not scheduled yet, but can be scheduled once pneumonia improves. She will need ENT follow up at discharge. Breast Cancer with metastases and local infiltration: Oncology appointment rescheduled to 04/12/17. Dr. Resendez will discuss starting an aromatase inhibitor with oncology. Glaucoma: On home meds Hip Fracture: DVT prophylaxis, pain management, OT/ PT treatment Dispo: Should be stable for transfer back to [facility] when they're able to take patients after the holiday. DVT hep sq, SCD Regular diet DNR code status. Medical - PN: Qual - VTE Deep Vein Thrombosis/Pulmonary Embolism Present on Admission: No
[2017-03-27] MEDS: BENZOCAINE/MENTHOL 1 LOZENGE PO PRN (20:22)
[2017-03-28] MEDS: 0.9 % SODIUM CHLORIDE 10 ML SYRINGE IV SCH ×2 (05:58→14:09)
[2017-03-28] MEDS: IPRATROPIUM/ALBUTEROL 3 ML AMPUL.NEB NEB SCH ×2 (07:03→13:28)
[2017-03-28] MEDS: LACTOBACILLUS 1 CAPSULE PO SCH (08:36)
[2017-03-28] MEDS: HEPARIN 5,000 UNIT/ML VIAL SQ SCH (08:36)
[2017-03-28] MEDS: CEFUROXIME 500 MG TABLET PO SCH (08:36)
[2017-03-28] MEDS: HYDROcodone/APAP 5/325MG TABLET PO PRN ×2 (08:37→13:53)
[2017-03-28] MEDS: FAMOTIDINE 20 MG TABLET PO SCH (08:38)
[2017-03-28] MEDS: DORZOLAMIDE 2% OPHTH DROPS 10ML BOTTLE OU SCH (09:35)
--- NOTE | 2017-03-28 13:02 | Discharge Summary ---
Medical - DS: Prov Patient information: Note initiated : 03/28/17 at 12:58 pm Service Date, if different from initiated Date: [] Patient: Josefa Renee 76 y/o F admitted on 03/22/17 for fever, low O2 sat. Date of admission: 03/22/17 21:30 Discharge date: 03/28/17 Primary care physician: Leonid Magallanes Admitting clinician: Deloris Kohli Consults: 03/22/17 19:48 Consult to Physician [CONS] Stat Comment: Consulting Provider: Deloris Kohli Reason For Exam: Physician to Consult Discharging clinician: Mandy Sumemrs Medical - DS: Meds - Discharge Medications Prescriptions: Cefuroxime [Ceftin] 500 mg PO Q12 #4 tab guaiFENesin/DEXTROMETHORPHAN [Robitussin Dm] 10 ml PO Q4HP PRN #240 ml PRN Reason: Cough Active and Home Medications: Home Medications Dorzolamide 2% Ophth Drops [Trusopt 2% Ophth Drops] 1 gtt OU BID 03/08/17 [ History Confirmed 03/22/17 Last Taken Unknown] Acetaminophen [Tylenol] 650 mg PO Q6HP PRN tab 03/13/17 [Rx Confirmed 03/22/17 Last Taken Unknown] Albuterol Sulfate [Ventolin] 2.5 mg NEB Q2HP PRN ampul.neb 03/13/17 [Rx Confirmed 03/22/17 Last Taken Unknown] Amoxicillin/Potassium Clav [Augmentin] 875 mg PO Q12H #10 tab 03/13/17 [Rx Confirmed 03/22/17 Last Taken Unknown] Benzocaine/Menthol [Cepacol] 1 felipe PO PRN PRN felipe 03/13/17 [Rx Confirmed Last Taken Unknown] Bisacodyl [Dulcolax] 10 mg IN Q2-3DAYS PRN supp.rect 03/13/17 [Rx Confirmed Last Taken Unknown] Calcium Carbonate [Tums] 500 - 1,000 mg CHEWED Q6HP PRN tab.chew 03/13/17 [Rx Confirmed 03/22/17 Last Taken Unknown] Heparin 5,000 unit SQ Q12 vial 03/13/17 [Rx Confirmed 03/22/17 Last Taken Unknown] Hydrocodone/APAP 7.5/325Mg [[place] 7.5/325Mg] 1 tab PO Q4HP PRN #30 tab 03/13/17 [Rx Confirmed 03/22/17 Last Taken Unknown] Lactobacillus [Culturelle] 1 cap PO DAILY cap 03/13/17 [Rx Confirmed 03/22/17 Last Taken Unknown] Magnesium Hydroxide [Milk of Magnesia] 30 ml PO BIDP PRN oral.susp 03/13/17 [ Rx Confirmed 03/22/17 Last Taken Unknown] Methocarbamol [Robaxin] 750 mg PO Q6HP PRN tab 03/13/17 [Rx Confirmed 03/22/17 Last Taken Unknown] Polyethylene Glycol 3350 [Miralax] 17 gm PO DAILYP PRN packet 03/13/17 [Rx Confirmed 03/22/17 Last Taken Unknown] Sennosides [Senokot] 2 tab PO HSP PRN tab 03/13/17 [Rx Confirmed 03/22/17 Last Taken Unknown] Ondansetron HCl [Zofran] 4 mg PO Q4H PRN 03/22/17 [History Confirmed 03/22/17 Last Taken Unknown] Oseltamivir Phosphate [Tamiflu] 75 mg PO BID #10 cap 03/22/17 [Rx Confirmed Last Taken Unknown] Medical - DS: Hosp Hospital course: Ms. Renee is a 76 year old Female with h/o hip fracture, ca breast, recently discharged from this hospital to [facility], presents today with complaints of ever, shotness of breath and cough. the patient notes that she has been having cough and not feeling well x 3-5 datys, decreased appetitie over 2 days, she also has noted some soreness in the throat with change in voice quality. The patient since yesterday is having shortness of breath and cough, Cough with yellowish sputum, having fevers, no chills. She was brought to the ER early today, was diagnosed with influenza type B, started on tamiflu and sent back to the [facility]. The patient took one dose, not sure if got another, but her condition worsened, she continued to have fever , became more short of breath, with cough, and new hypoxia. She was sent again for evaluation. She admits to haveing some nasuea and vomiting, some headache, fatigue and maliaise. She denies any other symptom. In the ER she wass febrile, hypoxic, needing 4L oxygen to keep her sat > 90, she as also tachypenic, Her WBC was elevated, to 14, her ABG showed hypoxia. Her CXR was neg, given her hypoxia, and recent hip surgery with h/o cancer, CTA to r/o PE was done, which is prelimnary reported neg, but she has bilateral pneumona on the basilar region. She is being admitted to the hospital for further management. Patients son is present in the ER, patient is DNR code status She has newly diagnosed Ca breast with mets, CT shows significant axiallary mets , patietn was to see oncologist today, but this was postponed in light of influenza. Mar 23 Patient seen examined,she still has cough, and shortness of breath her wbc is better slightly Her CT scan and Thyroid usg reviewed plan of care reviewed with patient and her son. Will try to consult ENT on evaluation of large thyroid mass/ goiter microbiology pending. Mar 24 Cough is starting to become somewhat productive, clearish sputum. No chest pains. White count normalizing. ENT notation for outpatient workup of thyroid is noted. Patient currently without any dysphagia or dyspnea. Sputum culture without pathogens isolated. March 25 Severe coughing spells difficult to mobilize secretions early this afternoon. Required suctioning. Otherwise had been continuing to progress. Secretions and sputum are clear. Otherwise reports no swallowing difficulties. No stridor March 26 Complaining of burning with vancomycin infusion. Also getting some pain with cefepime infusion. Decided to stop Vanco after this morning's dose. She refused cefepime this evening. Overall she's feeling better, less cough and sputum production. No fevers and chills. Looks much more comfortable and yesterday. Still reports no swallowing problems. No stridor noted. March 27 Several bowel movements today. Had received bowel care after a few days of no BM's. C. difficile was sent, is negative. Otherwise feeling pretty well. Tolerating by mouth antibiotics. Cough continues to improve, no problems with secretions. No dysphagia. March 28 Continues to do well. Cough is persisting, improving, generally nonproductive at this point. No dyspnea. No dysphagia. Eating well. Looking forward to discharge. Hypoxic respiratory failure continues to be resolved. In summary This is a 76-year-old female who was recently hospitalized with hip fracture. She was diagnosed with advanced breast cancer at that time, when a lesion was noted near the left breast. The patient had been undergoing rehabilitation from the hip fracture, with plans to follow up with oncology as an outpatient. She presented to the emergency department with fever and dyspnea. Was diagnosed with influenza. She was discharged back to rehabilitation, presented back to the ED later in the same day with respiratory failure with hypoxia. CT scan at that time was negative for PE, but did show pneumonia. She was admitted and treated for healthcare acquired pneumonia. She was on vancomycin and cefepime, completed 5 days of that, was converted over to oral cefuroxime. She continued to improve. She had significant wheezing and rhonchi as well as hypoxic respiratory failure presentation. These at all resolved by the time of discharge. She was saturating normally on room air for the last 2-3 days prior to discharge. Lungs been clear for the last 2-3 days prior to discharge. In regards to her breast cancer CT of the chest for PE, all re-demonstrated breast cancer with metastases and some erosion into the chest wall. The patient was due to see oncology on the day she was admitted to the hospital. That has been rescheduled to April 12 for initial consultation and consideration of starting palliative treatment. She is also noted to have an enlarged thyroid with some compression of the trachea. Patient had no functional symptoms from this, no stridor, no dysphagia. Ultrasound was most consistent with a goiter, but aspiration could be considered. , who was attending at the time, case reviewed the case with Dr Carbone, ENT, no urgent indication for decompression surgery as long as there is no respiratory compromise. Patient will need thyroid biopsy to determine the etiology of the mass vs goiter, that is not scheduled yet, but can be scheduled once pneumonia improves. She will need ENT follow up at discharge. Aggressiveness of further thyroid evaluation should take into account overall prognosis from breast cancer. Discharge diagnosis: Influenza, pneumonia - Time Spent with Patient Total time spent providing and/or coordinating discharge services: Greater than 30 minutes Medical - DS: Exam - Constitutional Vitals: Vital Signs Temp Pulse Pulse Resp BP Pulse Ox 03/28/17 12:00 96.7 F L 16 124/60 97 03/28/17 07:46 98.6 F 16 118/58 90 03/28/17 07:44 80 16 03/28/17 03:48 97.7 F 75 20 120/64 96 03/28/17 00:00 98.5 F 74 22 125/59 98 03/27/17 23:56 77 18 03/27/17 20:00 97.6 F 85 24 H 130/66 100 03/27/17 19:14 77 16 03/27/17 19:13 96 03/27/17 15:10 97.9 F 20 120/62 94 03/27/17 13:23 95 03/27/17 13:20 76 16 Intake and Output 03/27/17 03/28/17 03/28/17 21:59 05:59 13:59 Intake Total 1160 / 1160 0 / 0 440 / 440 Output Total Balance 1160 / 1160 - 440 / 440 Intake: Oral 1160 / 1160 0 / 0 440 / 440 Output: # of times incontinent of urine Other: Meal Dinner Nourishment/Supplement Percent of Meal Consumed 25% 100% Feeding Ability Independent # Voids 1 Weight 155 lb 6.4 oz Additional comments: General: Sitting up in chair in no acute distress Chest: Clear, no rales, no wheezes Cardiovascular: Regular, no edema Abdomen: Soft, active bowel sounds Neuro: Alert, oriented, generally weak Medical - DS: Data - Impressions CTA Chest IMPRESSION: Bilateral pneumonia with the greatest involvement in the left lower lobe. Thickening of the intralobular septa in the left upper lobe and lingula. The asymmetry would be more suggestive of lymphangitic spread of tumor rather than interstitial pulmonary edema from congestive heart failure Borderline cardiomegaly with atherosclerotic coronary artery disease. Large right-sided breast cancer with metastasis to the right axilla Large thyroid causing extrinsic compression and narrowing of the trachea. This is most likely a goiter. Metastasis from breast cancer would be extremely rare. A primary thyroid carcinoma is possible but much less likely than a goiter. Thyroid ultrasound Impression: Massively enlarged thyroid. Statistically this is most likely a goiter. Metastasis from breast cancer be extremely rare. Diffuse involvement of both lobes of the thyroid by a thyroid carcinoma would also be atypical. This does not have the appearance of a lymphoma Medical - DS: A/P - Patient/Caregiver Discharge Instructions Activity: increase activity as tolerated Diet: Regular Diet Additional Instructions: Follow-up with oncology on Apr 12, as re-scheduled. Prescriptions: Cefuroxime [Ceftin] 500 mg PO Q12 #4 tab guaiFENesin/DEXTROMETHORPHAN [Robitussin Dm] 10 ml PO Q4HP PRN #240 ml PRN Reason: Cough Other Amb Orders: Wound Care/Dressings Location: Determined By Patient - Problem Maintenance (1) Influenza Status: Resolved (2) Pneumonia Status: Resolved Qualifiers: Pneumonia type: due to unspecified organism Laterality: bilateral Lung location: lower lobe of lung Qualified Code(s): J18.9 - Pneumonia, unspecified organism (3) Acute respiratory failure with hypoxia Status: Resolved (4) Sepsis Status: Resolved Qualifiers: Sepsis type: sepsis due to unspecified organism Qualified Code(s): A41.9 - Sepsis, unspecified organism - Follow up Plan Follow up with: Leonid Magallanes MD [Primary Care Provider] - (Call for a hospital follow in 7- 10 days.) Jarad Carbone DO [Physician] - (Next avilable for evaluation of throid mass) Disposition: Xfer SNF Prognosis: Fair Rehab Potential: Fair I certify that the patient requires SNF services: Yes Overall status at discharge: patient is progressing back to baseline Medical - DS: Qual - VTE Deep Vein Thrombosis/Pulmonary Embolism Present on Admission: No
[2017-03-28] MEDS ORDERED: FLU VACC QS2017-18 36MOS UP/PF 60 MCG/0.5 ML SYRINGE IM ONE (14:15)
[2017-03-28] MEDS ORDERED: PNEUMOCOCCAL 23-VAL P-SAC VAC 0.5 ML VIAL IM ONE (14:15)
== END 2017-03-28 14:25 | DRG 871 ==
LOC: ED 18:03 → ICU 21:30 → MEDSUR 03-26 18:02
PROVIDERS: ADMIT Internal Medicine; ATTEND Internal Medicine